=== PATIENT | male | born 1930 | race Caucasian/White ===

== ENCOUNTER → 2018-10-24 | Outpatient (REF) ==
[2018-10-24 12:35] LABS: CALCIUM LEVEL 7.7 MG/DL (8.8-10.2); CREATININE FOR GFR 1.83 MG/DL (0.70-1.30); GLOMERULAR FILTRATION RATE 37.6 (>35); POTASSIUM SERUM 3.9 MEQ/L (3.5-5.1)
--- NOTE | 2018-10-24 15:06 | REP ---
PORTABLE CHEST: AP portable view of the chest was performed. I have no prior study for comparison. Heart appears enlarged. There is vascular congestion. There are increased interstitial markings bilaterally. Compatible with interstitial edema. Multiple sternal wires and mediastinal clips are present. IMPRESSION: Findings compatible with cardiomegaly, vascular congestion and interstitial pulmonary edema. Electronically Signed by Corey Alvarez MD 10/24/2018 07:40 P
== END ==
LOC: SKLAB7 10:45
PROVIDERS: ATTEND Internal Medicine
DX: I50.9 Heart failure, unspecified (principal); J18.9 Pneumonia, unspecified organism

== ENCOUNTER → 2018-10-28 | Outpatient (REF) ==
[~2018-10-28] MED LIST: ACET500T15 PO; APAP325T4 PO; ASPI81TA85 PO; AYR0.65S NARES; BASA100I SC; BISA10SU4 PR; CILO100T PO; ELIQ2.5T PO; ENEMENE4 PR; FLOM0.4C39 PO; FURO80TA2 PO; HUMA100I3 SC; LEVO88TA3 PO; LOPR1TAB6 PO; MILK120011 PO; OCUVTAB4 PO; PANT40TA3 PO; POTA1TAB14 PO; SIMV20TA2 PO; SPIR-10 PO; VITA200015 PO; VITMTA PO
[2018-10-28 08:12] LABS: CALCIUM LEVEL 7.8 MG/DL (8.8-10.2); CHOLESTEROL RISK RATIO 3.21 (<5); CREATININE FOR GFR 1.27 MG/DL (0.70-1.30); GLOMERULAR FILTRATION RATE 57.2 (>35); POTASSIUM SERUM 2.8 MEQ/L (3.5-5.1)
== END ==
LOC: SKLAB7 07:00
PROVIDERS: ATTEND Internal Medicine
DX: I50.9 Heart failure, unspecified (principal); E11.9 Type 2 diabetes mellitus without complications; I11.0 Hypertensive heart disease with heart failure; N40.1 Benign prostatic hyperplasia with lower urinary tract symptoms; Z79.899 Other long term (current) drug therapy

== ENCOUNTER → 2018-10-29 | Outpatient (REF) ==
[2018-10-29 08:23] LABS: CALCIUM LEVEL 7.9 MG/DL (8.8-10.2); CREATININE FOR GFR 1.6 MG/DL (0.70-1.30); GLOMERULAR FILTRATION RATE 43.8 (>35); POTASSIUM SERUM 3.2 MEQ/L (3.5-5.1)
== END ==
LOC: SKLAB7 07:00
PROVIDERS: ATTEND Internal Medicine
DX: I50.9 Heart failure, unspecified (principal)

== ENCOUNTER → 2018-10-31 | Outpatient (REF) ==
[2018-10-31 12:48] LABS: CALCIUM LEVEL 8.1 MG/DL (8.8-10.2); CREATININE FOR GFR 1.62 MG/DL (0.70-1.30); GLOMERULAR FILTRATION RATE 43.2 (>35); POTASSIUM SERUM 3.5 MEQ/L (3.5-5.1)
== END ==
LOC: SKLAB7 07:00
PROVIDERS: ATTEND Internal Medicine
DX: I50.9 Heart failure, unspecified (principal)

== ENCOUNTER → 2018-11-04 | Outpatient (REF) ==
[2018-11-04 07:41] LABS: HEMATOCRIT 31.2 % (42.0-52.0); HEMOGLOBIN 10.2 g/dl (13.5-17.5); MEAN CORPUSCULAR HEMOGLOBIN 30.3 pg (27.0-33.0); MEAN CORPUSCULAR HGB CONC 32.7 g/dl (32.0-36.5); MEAN CORPUSCULAR VOLUME 92.6 fl (80.0-96.0); PLATELET COUNT, AUTOMATED 320 10^3/uL (150-450); RED BLOOD COUNT 3.37 10^6/uL (4.30-6.10); WHITE BLOOD COUNT 10.5 10^3/uL (4.0-10.0)
[2018-11-04 08:09] LABS: CALCIUM LEVEL 8.2 MG/DL (8.8-10.2); CREATININE FOR GFR 1.52 MG/DL (0.70-1.30); GLOMERULAR FILTRATION RATE 46.5 (>35); POTASSIUM SERUM 3.4 MEQ/L (3.5-5.1)
[2018-11-04 08:12] LABS: HEMOGLOBIN A1c 10.3 %
== END ==
LOC: SKLAB7 07:00
PROVIDERS: ATTEND Internal Medicine
DX: I50.9 Heart failure, unspecified (principal); E11.9 Type 2 diabetes mellitus without complications; Z79.899 Other long term (current) drug therapy

== ENCOUNTER → 2018-11-11 | Outpatient (REF) ==
[2018-11-11 07:45] LABS: CALCIUM LEVEL 8.5 MG/DL (8.8-10.2); CREATININE FOR GFR 1.57 MG/DL (0.70-1.30); GLOMERULAR FILTRATION RATE 44.8 (>35); POTASSIUM SERUM 3.6 MEQ/L (3.5-5.1)
== END ==
LOC: SKLAB7 07:00
PROVIDERS: ATTEND Internal Medicine
DX: I50.9 Heart failure, unspecified (principal)

== ENCOUNTER → 2018-11-17 | Outpatient (CLI) | payer MEDICARE ==
--- NOTE | 2018-11-17 12:11 | NUR ---
Pt seen for Modified Barium Swallow Study d/t hx significant for oropharyngeal phase dysphagia following respiratory failure and pneumonia. Pt. was presented with thin liquids (via straw at 3 consecutive swallows, puree, canned peaches with thin liquid base, barium filled cookie and barium tablet. Premature spillage over the tongue base to the valleculae noted with trials following thin liquid but w/o aspiration/penetration. Pharyngeal/valleculae residue was minimal/insignificant. Barium tablet provided whole with thin liquid wash (via straw) and tolerated well. Recommendations: Mechanical Soft solids and regular thin liquids. Line of sight supervision for initial upgrade. Meds whole with thin liquid wash. Straw use is acceptable. Upright for all meals/snacks/meds Addendum: 11/17/18 at 1213 by SAMARIA DSOUZA [facility] Amended: Links added.
--- NOTE | 2018-11-18 10:08 | REP ---
COOKIE SWALLOW The procedure was performed under the direct supervision of Dr. alvarez. The procedure was performed with Mireille Easley from speech pathology present. 5 ml aliquots of pudding, solid, thin, fruit and a barium pill were administered. There is no evidence of penetration or aspiration. The detailed report of this examination will be provided by speech pathology. 2.7 minutes of fluoroscopy time was utilized for this procedure. Reviewed by EDYTA Lopez 11/17/2018 04:05 P Electronically Signed by Corey Alvarez MD 11/18/2018 09:59 A
== END ==
LOC: M ST 11:07
PROVIDERS: ATTEND Nurse Practitioner Family
DX: R13.10 Dysphagia, unspecified (principal)

== ENCOUNTER → 2018-11-18 | Outpatient (REF) ==
[2018-11-18 08:22] LABS: CALCIUM LEVEL 8.6 MG/DL (8.8-10.2); CREATININE FOR GFR 1.56 MG/DL (0.70-1.30); GLOMERULAR FILTRATION RATE 45.1 (>35); POTASSIUM SERUM 3.2 MEQ/L (3.5-5.1)
== END ==
LOC: SKLAB7 07:00
PROVIDERS: ATTEND Internal Medicine
DX: I50.9 Heart failure, unspecified (principal)

== ENCOUNTER → 2018-11-20 | Outpatient (REF) ==
[2018-11-20 13:39] LABS: HEMATOCRIT 35.3 % (42.0-52.0); HEMOGLOBIN 11.5 g/dl (13.5-17.5); MEAN CORPUSCULAR HEMOGLOBIN 30.2 pg (27.0-33.0); MEAN CORPUSCULAR HGB CONC 32.6 g/dl (32.0-36.5); MEAN CORPUSCULAR VOLUME 92.7 fl (80.0-96.0); PLATELET COUNT, AUTOMATED 288 10^3/uL (150-450); RED BLOOD COUNT 3.81 10^6/uL (4.30-6.10); WHITE BLOOD COUNT 15.3 10^3/uL (4.0-10.0)
[2018-11-20 15:21] LABS: CALCIUM LEVEL 8.2 MG/DL (8.8-10.2); CREATININE FOR GFR 1.71 MG/DL (0.70-1.30); GLOMERULAR FILTRATION RATE 40.6 (>35)
--- NOTE | 2018-11-20 20:33 | REP ---
Portable chest x-ray: Semi-erect AP view. History: Leukocytosis. Comparison study: October 24, 2018. Findings: Patient is status post prior median sternotomy. A loop recorder is again seen projecting over the left chest. Diffuse interstitial fibrosis pattern is noted moderate to advanced. No acute superimposed infiltrate is seen. The heart is mildly prominent unchanged. Pleural angles are sharp. Impression: Diffuse interstitial fibrosis pattern. Prior sternotomy. Mildly prominent heart. No acute changes. Electronically Signed by Alec Pagan MD 11/21/2018 09:53 A
--- NOTE | 2018-11-21 07:21 | ECGEPIP ---
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
== END ==
LOC: SKLAB7 11:20
PROVIDERS: ATTEND Internal Medicine
DX: I50.9 Heart failure, unspecified (principal)

== ENCOUNTER 2018-11-21 13:29 | Emergency (ER) | payer MEDICARE ==
[~2018-11-21] VITALS: Ht 175.3 cm; Wt 77.0 kg
[2018-11-21] MEDS ORDERED: SIMV20TA2 PO (14:57)
[2018-11-21] MEDS ORDERED: AYR0.65S NARES (14:57)
[2018-11-21] MEDS ORDERED: FLOM0.4C39 PO (14:57)
[2018-11-21] MEDS ORDERED: ACET500T15 PO (14:57)
[2018-11-21] MEDS ORDERED: APAP325T4 PO (14:57)
[2018-11-21] MEDS ORDERED: PANT40TA3 PO (14:57)
[2018-11-21] MEDS ORDERED: MILK120011 PO (14:57)
[2018-11-21] MEDS ORDERED: HUMA100I3 SC ×4 (14:57→15:06)
[2018-11-21] MEDS ORDERED: SPIR-10 PO (14:57)
[2018-11-21] MEDS ORDERED: LEVO88TA3 PO (14:57)
[2018-11-21] MEDS ORDERED: LOPR1TAB6 PO (14:57)
[2018-11-21] MEDS ORDERED: FURO80TA2 PO (14:57)
[2018-11-21] MEDS ORDERED: CILO100T PO (14:57)
[2018-11-21] MEDS ORDERED: ENEMENE4 PR (14:57)
[2018-11-21] MEDS ORDERED: BASA100I SC (14:57)
[2018-11-21] MEDS ORDERED: VITA200015 PO (14:57)
[2018-11-21] MEDS ORDERED: ELIQ2.5T PO (14:57)
[2018-11-21] MEDS ORDERED: OCUVTAB4 PO (14:57)
[2018-11-21] MEDS ORDERED: VITMTA PO (14:57)
[2018-11-21] MEDS ORDERED: POTA1TAB14 PO (14:57)
[2018-11-21] MEDS ORDERED: ASPI81TA85 PO (14:57)
[2018-11-21] MEDS ORDERED: BISA10SU4 PR (14:57)
--- NOTE | 2018-11-21 15:11 | REP ---
CT CHEST WITHOUT IV CONTRAST: CT chest performed without IV contrast. Sagittal and coronal reconstruction images are performed. There is moderate to severe interstitial fibrosis predominantly in the lung bases bilaterally. There is associated moderate to severe bronchiectasis in the lower lobes and to a lesser extent in the upper lobes. Extensive honeycombing is seen in the lung bases. No consolidating infiltrate is seen bilaterally. There is mild subcarinal adenopathy 1.2 cm in short axis. Other subcentimeter lymph nodes are scattered throughout the mediastinum. No axillary adenopathy is seen. There is mild atherosclerotic calcification of the thoracic aorta without aneurysm. Heart is not significantly enlarged. There is a small hiatal hernia. The visualized upper abdominal structures are grossly unremarkable. IMPRESSION: Moderate to severe fibrosis and bronchiectasis with some degree of honeycombing in the lung bases. No consolidation. Mild subcarinal adenopathy 1.2 cm in short axis. Small hiatal hernia. Electronically Signed by Corey Alvarez MD 11/24/2018 11:48 A
[2018-11-21 15:20] LABS: BASO # 0.1 10^3/uL (0.0-0.2); BASO % 0.5 % (0.0-1.0); EOS # 0.3 10^3/uL (0.0-0.50); HEMOGLOBIN 12.2 g/dl (13.5-17.5); LYMPH # 4.3 10^3/uL (1.5-4.5); LYMPH % 32.5 % (24.0-44.0); MEAN CORPUSCULAR HEMOGLOBIN 31.1 pg (27.0-33.0); MEAN CORPUSCULAR VOLUME 94.4 fl (80.0-96.0); MONO # 1.2 10^3/uL (0.0-0.8); NEUTROPHILS # 7.3 10^3/uL (1.8-7.7); NEUTROPHILS % 55.2 % (36.0-66.0); PLATELET COUNT, AUTOMATED 257 10^3/uL (150-450); RED BLOOD COUNT 3.92 10^6/uL (4.30-6.10); WHITE BLOOD COUNT 13.3 10^3/uL (4.0-10.0)
[2018-11-21 15:31] LABS: INR 1.19; PARTIAL THROMBOPLASTIN TIME 35.6 SECONDS (25.4-37.6); PROTHROMBIN TIME 15.3 SECONDS (12.1-14.4)
[2018-11-21 15:47] LABS: ALBUMIN 2.3 GM/DL (3.2-5.2); ALT/SGPT 35 U/L (12-78); BILIRUBIN,DIRECT 0.1 MG/DL (0.0-0.2); BILIRUBIN,TOTAL 0.4 MG/DL (0.2-1.0); BLOOD UREA NITROGEN 37 MG/DL (7-18); CALCIUM LEVEL 8.1 MG/DL (8.8-10.2); CARBON DIOXIDE LEVEL 28 MEQ/L (21-32); CHLORIDE LEVEL 100 MEQ/L (98-107); CPK CREATINE PHOSPHOKINASE 31 U/L (39-308); CREATININE FOR GFR 1.87 MG/DL (0.70-1.30); GLOMERULAR FILTRATION RATE 36.6 (>35); GLUCOSE, FASTING 207 MG/DL (70-100); LIPASE 194 U/L (73-393); MB/CK RELATIVE INDEX 7.42 (< OR =4); POTASSIUM SERUM 3.9 MEQ/L (3.5-5.1); SODIUM LEVEL 136 MEQ/L (136-145); TROPONIN I < 0.02 NG/ML (< 0.10)
[2018-11-21 18:44] VITALS: BP 128/74
--- NOTE | 2018-11-21 18:53 | ECGEPIP ---
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
--- NOTE | 2018-11-24 13:56 | ED PDOC ---
Post-Departure Follow-Up dr samuels faxed formal report of ct chest for fu Maryam Mahoney MD Nov 24, 2018 13:56
== END 2018-11-21 19:28 | disposition home or self-care (01) ==
LOC: M ED 13:29
DX: D72.829 Elevated white blood cell count, unspecified (principal); R91.8 Other nonspecific abnormal finding of lung field; K44.9 Diaphragmatic hernia without obstruction or gangrene; I51.7 Cardiomegaly; I48.91 Unspecified atrial fibrillation; E11.42 Type 2 diabetes mellitus with diabetic polyneuropathy; I50.9 Heart failure, unspecified; E03.9 Hypothyroidism, unspecified; N18.3 Chronic kidney disease, stage 3 (moderate); J84.112 Idiopathic pulmonary fibrosis; Z86.14 Personal history of Methicillin resistant Staphylococcus aureus infection; Z87.891 Personal history of nicotine dependence; Z79.01 Long term (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 of anticoagulants; Z79.82 Long term (current) use of aspirin; Z79.4 Long term (current) use of insulin; Z79.899 Other long term (current) drug therapy; Z88.8 Allergy status to other drugs, medicaments and biological substances

== ENCOUNTER → 2018-11-21 | Outpatient (REF) ==
[2018-11-21 07:42] LABS: HEMATOCRIT 38.6 % (42.0-52.0); HEMOGLOBIN 12.4 g/dl (13.5-17.5); MEAN CORPUSCULAR HEMOGLOBIN 30.2 pg (27.0-33.0); MEAN CORPUSCULAR HGB CONC 32.1 g/dl (32.0-36.5); MEAN CORPUSCULAR VOLUME 94.1 fl (80.0-96.0); PLATELET COUNT, AUTOMATED 312 10^3/uL (150-450); WHITE BLOOD COUNT 19.7 10^3/uL (4.0-10.0)
== END ==
LOC: SKLAB7 14:12
PROVIDERS: ATTEND Internal Medicine
DX: D72.829 Elevated white blood cell count, unspecified (principal)

== ENCOUNTER → 2018-11-27 | Outpatient (REF) ==
[2018-11-27 08:43] LABS: CREATININE FOR GFR 1.47 MG/DL (0.70-1.30); GLOMERULAR FILTRATION RATE 48.4 (>35); POTASSIUM SERUM 3.7 MEQ/L (3.5-5.1)
== END ==
LOC: SKLAB7 14:19
PROVIDERS: ATTEND Internal Medicine
DX: I50.9 Heart failure, unspecified (principal)

== ENCOUNTER → 2018-12-02 | Outpatient (REF) ==
[2018-12-02 08:57] LABS: FREE T4 1.8 NG/DL (0.76-1.46); THYROID STIMULATING HORMONE 1.28 uIU/ML (0.358-3.740)
== END ==
LOC: SKLAB7 07:33
PROVIDERS: ATTEND Internal Medicine
DX: E03.9 Hypothyroidism, unspecified (principal)

== ENCOUNTER → 2018-12-04 | Outpatient (REF) ==
[2018-12-04 08:48] LABS: CALCIUM LEVEL 9.3 MG/DL (8.8-10.2); CREATININE FOR GFR 1.62 MG/DL (0.70-1.30); GLOMERULAR FILTRATION RATE 43.2 (>35); POTASSIUM SERUM 3.6 MEQ/L (3.5-5.1)
== END ==
LOC: SKLAB7 08:00
PROVIDERS: ATTEND Internal Medicine
DX: I50.9 Heart failure, unspecified (principal)

== ENCOUNTER → 2019-03-25 | Outpatient (REF) | payer MEDICARE ==
[2019-03-25 13:46] LABS: HEPATITIS C VIRUS ABY INDEX 0.1 INDEX (<0.8); HIV 1&2 SCREEN CENTAUR NEGATIVE (NEGATIVE)
== END ==
LOC: M LAB REF 12:35
PROVIDERS: ATTEND Internal Medicine
DX: Z77.21 Contact with and (suspected) exposure to potentially hazardous body fluids (principal); W46.0XXA Contact with hypodermic needle, initial encounter

== ENCOUNTER → 2019-05-04 | Outpatient (REF) | payer MEDICARE | LOC: M LAB REF 14:19 | PROVIDERS: ATTEND Internal Medicine | DX: R19.7 Diarrhea, unspecified (principal) ==

== ENCOUNTER → 2020-06-28 | Outpatient (REF) | payer MEDICARE ==
[~2020-06-28] MED LIST changes: -ASPI81TA85 PO; +ASPI81TA86 PO; +PANT40TA29 PO; -PANT40TA3 PO; -SIMV20TA2 PO; +SIMV20TA22 PO
[2020-06-28 17:03] LABS: APPEARANCE, URINE CLEAR (CLEAR); BACTERIA, URINE AUTO NEGATIVE (NEGATIVE); BILIRUBIN, URINE AUTO NEGATIVE (NEGATIVE); BLOOD, URINE BLOOD NEGATIVE (NEGATIVE); COLOR, URINE YELLOW (YELLOW); GLUCOSE, URINE (UA) AUTO NEGATIVE (NEGATIVE); KETONE, URINE AUTO NEGATIVE (NEGATIVE); LEUKOCYTE ESTERASE, URINE AUTO NEGATIVE (NEGATIVE); MUCUS, URINE SMALL (NEGATIVE); NITRITE, URINE AUTO NEGATIVE (NEGATIVE); PROTEIN, URINE AUTO NEGATIVE (NEGATIVE); RBC, URINE AUTO 0 /HPF (0-3); SPECIFIC GRAVITY URINE AUTO 1.013 (1.002-1.035); SQUAMOUS EPITHELIAL CELL UR AU 1 /HPF (0-6); UROBILINOGEN, URINE AUTO 0.2 mg/dL (0.0-2.0); WBC, URINE AUTO 0 /HPF (0-3)
== END ==
LOC: M SMT 16:48
PROVIDERS: ATTEND Urology
DX: N40.1 Benign prostatic hyperplasia with lower urinary tract symptoms (principal)
CPT/HCPCS: 51798; 81001; 81002; G0463

== ENCOUNTER → 2020-07-07 | Outpatient (REF) | payer MEDICARE | LOC: M LAB REF 16:21 | PROVIDERS: ATTEND Internal Medicine | DX: I13.0 Hypertensive heart and chronic kidney disease with heart failure and stage 1 through stage 4 chronic kidney disease, or unspecified chronic kidney disease (principal); I50.9 Heart failure, unspecified; N18.9 Chronic kidney disease, unspecified ==

== ENCOUNTER → 2020-10-07 | Outpatient (REF) | payer MEDICARE ==
[~2020-10-07] MED LIST changes: +ACET325C5 PO; +CEPH500C PO; +FINA5TAB2 PO; +INSUHUMDS SC; +METO1TAB87 PO; +REFR0.1D OU; +SYNT75TA PO; +TORS20TA2 PO; +VITA200038 PO
[2020-10-07 19:06] LABS: ALBUMIN 3.7 GM/DL (3.2-5.2); BILIRUBIN,TOTAL 0.3 MG/DL (0.2-1.0); CALCIUM LEVEL 9.8 MG/DL (8.8-10.2); CREATININE FOR GFR 2.15 MG/DL (0.70-1.30); POTASSIUM SERUM 4.5 MEQ/L (3.5-5.1); THYROID STIMULATING HORMONE 4.99 uIU/ML (0.358-3.740); TOTAL PROTEIN 7.8 GM/DL (6.4-8.2)
== END ==
LOC: M LAB REF 16:31
PROVIDERS: ATTEND Internal Medicine
DX: I13.0 Hypertensive heart and chronic kidney disease with heart failure and stage 1 through stage 4 chronic kidney disease, or unspecified chronic kidney disease (principal); N25.81 Secondary hyperparathyroidism of renal origin; I50.9 Heart failure, unspecified; N18.9 Chronic kidney disease, unspecified

== ENCOUNTER 2020-10-20 14:47 | Inpatient (IN) | payer MEDICARE ==
[~2020-10-20] VITALS: Ht 175.3 cm; Wt 93.4 kg
[~2020-10-20 14:47] MED LIST changes: -ACET325C5 PO; -CEPH500C PO; -FINA5TAB2 PO; -INSUHUMDS SC; -METO1TAB87 PO; -REFR0.1D OU; -SYNT75TA PO; -TORS20TA2 PO; -VITA200038 PO
[2020-10-20] MEDS ORDERED: TORS20TA2 PO (16:05)
[2020-10-20] MEDS ORDERED: FINA5TAB2 PO (16:06)
[2020-10-20] MEDS ORDERED: ACETAMINOPHEN 500 MG TAB PO ONE (16:30)
--- NOTE | 2020-10-20 16:51 | REP ---
INDICATION: Left knee pain, red/hot swollen. COMPARISON: None. TECHNIQUE: Five views. FINDINGS: Five views of the left knee demonstrate prepatellar soft tissue swelling. Vascular calcifications noted. There is diffuse osteopenia. Mild chondrocalcinosis. No fracture is seen. No evidence of joint effusion.. . No opaque foreign body noted. IMPRESSION: Diffuse osteopenia and vascular calcification. Prepatellar soft tissue swelling. No acute bony abnormality.. <Electronically signed by Jorge Pagan > 10/20/20 [id number]
[2020-10-20 17:07] LABS: BASO % 0.2 % (0.0-1.0); EOS % 0.3 % (0.0-3.0); HEMATOCRIT 39.2 % (42.0-52.0); HEMOGLOBIN 12.9 g/dl (13.5-17.5); LYMPH % 23.9 % (24.0-44.0); MEAN CORPUSCULAR HEMOGLOBIN 31.7 pg (27.0-33.0); MEAN CORPUSCULAR HGB CONC 32.9 g/dl (32.0-36.5); MEAN CORPUSCULAR VOLUME 96.3 fl (80.0-96.0); MONO # 2.4 10^3/uL (0.0-0.8); MONO % 19.1 % (0.0-5.0); NEUTROPHILS % 56.1 % (36.0-66.0); PLATELET COUNT, AUTOMATED 146 10^3/uL (150-450); RED BLOOD COUNT 4.07 10^6/uL (4.30-6.10)
[2020-10-20 17:10] LABS: WHITE BLOOD COUNT 12.5 10^3/uL (4.0-10.0)
--- NOTE | 2020-10-20 17:17 | REPVR ---
PROCEDURE INFORMATION: Exam: US Duplex Left Lower Extremity Veins, Limited Exam date and time: 10/20/2020 4:32 PM Age: 89 years old Clinical indication: Pain; Leg, lower; Left; Additional info: R/O dvt lle TECHNIQUE: Imaging protocol: Real-time Duplex ultrasound of the Left Lower Extremity with 2-D qiu scale, color Doppler flow and spectral waveform analysis with image documentation. Limited exam focused on the left lower extremity veins. COMPARISON: No relevant prior studies available. FINDINGS: Left deep veins: Unremarkable. The common femoral, femoral, popliteal and posterior tibial veins are patent without thrombus. Normal compressibility, augmentation response and Doppler waveforms. Left superficial veins: Unremarkable. Saphenofemoral junction is patent without thrombus. Soft tissues: Unremarkable. IMPRESSION: No sonographic evidence of deep vein thrombosis. Electronically signed by: Philip Hackett On 10/20/2020 17:16:43 PM
[2020-10-20 17:30] LABS: C REACTIVE PROTEIN QUANTITATIV 6.43 MG/DL (0.00-0.30); CALCIUM LEVEL 9.5 MG/DL (8.8-10.2); CREATININE FOR GFR 2.57 MG/DL (0.70-1.30); GLOMERULAR FILTRATION RATE 25.3 (>35); POTASSIUM SERUM 4.4 MEQ/L (3.5-5.1)
[2020-10-20 18:25] LABS: ERYTHROCYTE SEDIMENTATION RATE 67 mm/hr (0-20)
[2020-10-20 19:33] LABS: RSV AMPLIFICATION NEGATIVE (NEGATIVE)
[2020-10-20 20:35] LABS: CRYSTALS, BODY FLUID NONE SEEN (NONE SEEN); SOURCE, BODY FLUID CRYSTALS LFT KNEE; SYNOVIAL FLUID COLOR PINK (YELLOW)
[2020-10-20 20:36] LABS: SOURCE, BODY FLUID LFT KNEE; SOURCE, BODY FLUID URIC ACID LFT KNEE
[2020-10-20] MEDS: HumaLOG INSULIN (NovoLOG) PER UNIT SC SCH (21:00)
[2020-10-20] MEDS ORDERED: VANCOMYCIN HCL 1,300 MG in IV FLUID PLACE HOLDER 1 EA IV SCH (21:15)
--- OUTSIDE RECORDS SUMMARY | 2020-10-20 21:47 | CCD | Continuity of Care Document ---
Author Author Daquan Miner MD Organization Unknown Address [address] [facility] [address] [place] [address] Phone [phone] Care Team Providers Care Elevator Constructor Hydraulic Name Role Phone Luis Enrique Miner JR, MD AUTM Unavailable Problems Description No Information Available Social History Type Date Description Comments Sex Unknown Tobacco Use Start: Unknown End: Unknown Does not smoke Allergies, Adverse Reactions, Alerts Active Allergies Reaction Severity Comments Date Gabapentin rash 12/18/2018 Medications Active Medications SIG Qnty Indications Ordering Provide r Date Metoprolol Tartrate 25mg Tablets 1 by mouth twice a day 180tabs Luis Enrique Miner MD 10/11/19 21 Novolog Flexpen 100U nit/ML Solution Pen-Inject Inject 6U AT Breakfast,8U AT Lunch,5U AT Supper Plus Sliding Scale 101-150 2U 151-200 4U,201-250 6U,251-300 8U Greater [id number] 15U 45ml Luis Enrique Miner MD 09/30/2020 BD Uf Mini Pen Needle [id number] Use Four Times A Day 120units uLis Enrique Miner MD 06/29/2020 Klor-Con M20 20Meq Tablets ER Take 1 Tablet Daily 90tabs Luis Enrique Miner MD 03/28/2020 Cilostazol 100mg Tablets Take 1 Tablet Twice A Day 180tabs Luis Enrique Miner MD 03/28/2020 BD Ultra Fine [place] Short 31G Misc use four times a day 120units Luis Enrique Miner MD 08/24 Torsemide 20mg Tablets Take 2 Tablets Daily 180tabs Luis Enrique Miner MD 07/15/2019 Freestyle Mai 14 Day/[place]/Flash [place]alka toring System Device use as directed e11.65;z79.4 1units Luis Enrique Miner MD 12/18/2018 Freestyle Mai 14 Day/Sensor/Flash Malka toring System Misc use as directed e11.65 1units Luis Enrique dixon MD 12/18/2018 Accu-Chek Grace Plus Strips test qid E11.65 400units Luis Enrique Miner MD 12/18/2018 Levothyroxine Sodium 75mcg Tablets take 1 tablet daily 90tabs Luis Enrique Miner MD 12/08/2018 Vitamin D3 2000Unit Capsules 1 by mouth every day Luis Enrique Miner MD 12/08/2018 Simvastatin 20mg Tablets take one tablet by mouth at bedtime 90tabs Luis Enrique Mienr MD [address] 1 by mouth every morning 90tabs Luis Enrique Miner MD 12/08/2018 Tamsulosin HCL 0.4mg Capsules 2 daily 1/2 hour after same meal 90caps Luis Enrique Miner MD 12/08 Preservision Areds Tablets Take 2 Tablets Daily 180tabs Keshawn Ruiz M.D. 12/08/2018 Basaglar Kwikpen 100 Unit/ML Solution Pen-Inject Inject 40 Units Daily In The Evening 45units Sandy Miner MD 12/08/2018 Pletal 100mg Tablets 1 by mouth twice a day 180tabs Luis Enrique Miner MD 12/08/2018 Eliquis 2.5mg Tablets 1 by mouth twice a day Luis Enrique Miner MD 12/08/2018 Multi Vitamin Daily Tablets 1 by mouth every day Luis Enrique Miner MD 12/06/2018 Spironolactone 25mg Tablets Take 1/2 Tablet Daily 90tabs Luis Enrique Miner MD 12/06/2018 Demadex 20mg Tablets take one tablets by mouth every day 180tabs Luis Enrique Miner MD 12/06/2018 Finasteride 5mg Tablets 1 by mouth Every Morning Unknown Immunizations CPT Code Status Date Vaccine Lot # U-Flu Given 05/29/2020 Influenza,Unspecified U-PneuC Given 08/24/2015 Prevnar 13 U-Pneum Given 09/26/2014 Pneumococcal,Unspecified [id number] Given 11/22/2011 Zostavax Vital Signs Date Vital Result Comment 10/11/2020 2:27pm BP Systolic 100 mmHg BP Diastolic 62 mmHg Heart Rate 86 /min Weight 197.00 lb 07/11/2020 1:49pm BP Systolic 112 mmHg BP Diastolic 60 mmHg Height 69 inches 5'9" Weight 194.25 lb BMI (Body Mass Index) 28.7 kg/m2 Results Test Acquired Date Facility Test Result H/L Range Note Comprehensive Metabolic Profil 10/07/2020 [facility] [address] [place], [place] [id number] [phone] Glucose, Fasting 97 mg/dL Normal 70-100 Blood Urea Nitrogen 66 mg/dL High 7-18 Creatinine For GFR 2.15 mg/dL High 0.70-1.30 Glomerular Filtration Rate 31.0 Low >35 1 Sodium Level 141 mEq/L Normal 136-145 Potassium Serum 4.5 mEq/L Normal 3.5-5.1 Chloride Level 105 mEq/L Normal 98-107 Carbon Dioxide Level 26 mEq/L Normal 21-32 Anion Gap 10 mEq/L Normal 8-16 Calcium Level 9.8 mg/dL Normal 8.8-10.2 Ast/Sgot 33 U/L Normal 7-37 Alt/SGPT 51 U/L Normal 12-78 Alkaline Phosphatase 151 U/L High 45-117 Bilirubin,Total 0.3 mg/dL Normal 0.2-1.0 Total Protein 7.8 GM/DL Normal 6.4-8.2 Albumin 3.7 GM/DL Normal 3.2-5.2 Albumin/Globulin Ratio 0.9 Normal Laboratory test finding 10/07/2020 [facility] [address] [place] [address] [phone] Thyroid Stimulating Hormone 4.990 uIU/ML High 0. 358-3.740 Complete Blood Count 10/07/2020 [facility] Plate Glass Polisher: [place] [address] [phone] WBC 9.0 x10*3/UL 4.1 - 10.9 RBC 4.16 x10*6/UL Low 4.20 - 6.30 Hemoglobin 13.3 g/dL 12.0 - 18.0 Hematocrit 38.1 % 37.0 - 51.0 MCV 91.6 fL 80.0 - 97.0 MCH 32.0 pg 26.0 - 32.0 MCHC 34.9 g/dL 31.0 - 38.0 RDW 13.7 % 11.6 - 13.7 PLT 134 x10*3/UL Low 140 - 440 MPV 9.9 FL 7.8 - 11.0 Lymph % 32.3 % 10.0 - 58.5 Mid % 7.5 % 1.7 - 9.3 Neut % 60.2 % 37.0 - 92.0 Lymph # 2.9 x10*3/UL 0.6 - 4.1 Mid # 0.7 x10*3/UL High 0.1 - 0.6 Neut # 5.4 x10*3/UL 2.0 - 7.8 A1c 10/07/2020 [facility] Plate Glass Polisher: [place] [address] [phone] Hba1c 7.8 % High <5.7 2 Est Avg Glucose 177 mg/dL High 60 - 110 Laboratory test finding 07/07/2020 [facility] [address] [place] [address] [phone] PTH Intact 74.9 pg/mL Normal 18.5-88.0 Complete Blood Count 07/07/2020 [facility] Plate Glass Polisher: [place] [address] [phone] WBC 7.9 x10*3/UL 4.1 - 10.9 RBC 4.17 x10*6/UL Low 4.20 - 6.30 Hemoglobin 13.4 g/dL 12.0 - 18.0 Hematocrit 38.6 % 37.0 - 51.0 MCV 92.5 fL 80.0 - 97.0 MCH 32.1 pg High 26.0 - 32.0 MCHC 34.7 g/dL 31.0 - 38.0 RDW 13.8 % High 11.6 - 13.7 PLT 145 x10*3/UL 140 - 440 MPV 9.6 FL 7.8 - 11.0 Lymph % 34.5 % 10.0 - 58.5 Mid % 7.2 % 1.7 - 9.3 Neut % 58.3 % 37.0 - 92.0 Lymph # 2.7 x10*3/UL 0.6 - 4.1 Mid # 0.6 x10*3/UL 0.1 - 0.6 Neut # 4.6 x10*3/UL 2.0 - 7.8 A1c 07/07/2020 [facility] Plate Glass Polisher: [place] [address] [phone] Hba1c 7.9 % High <5.7 3 Est Avg Glucose 180 mg/dL High 60 - 110 Comprehensive Chem Profile 07/07/2020 [facility] Plate Glass Polisher: [place] [address] [phone] Glucose 178 mg/dL High 74 - 99 4 BUN 51 mg/dL High 7 - 18 5 Creatinine 2.0 mg/dL High 0.6 - 1.3 Sodium 142 mEq/L 136 - 145 Potassium 4.1 mEq/L 3.5 - 5.1 Chloride 105 mEq/L 98 - 107 Carbon Dioxide 31 mEq/L 21 - 32 Calcium 9.5 mg/dL 8.5 - 10.1 Alk. Phosphatase 117 mg/dL High 46 - 116 Total Bilirubin 0.4 mg/dL 0.2 - 1.0 Ast (Sgot) 29 U/L 15 - 37 Alt (SGPT) 41 U/L 12 - 78 Albumin 3.6 g/dL 3.4 - 5.0 Total Protein 7.3 g/dL 6.4 - 8.2 A/G Ratio 0.97 CALC Low 1.00 - 1.90 GFR 32 mL/min Low >60 GFR 38 mL/min Low >60 6 1 Units are mL/min/1.73 m2 Chronic Kidney Disease Staging per NKF: Stage I & II GFR >=60 Normal to Mildly Decreased Stage III GFR 30-59 Moderately Decreased Stage IV GFR 15-29 Severely Decreased Stage V GFR <15 Very Little GFR Left ESRD GFR <15 on ADVERTISING SALES CONSULTANT 2 Lab Result Notes: Pre-Diabetes 5.7 - 6.4 % Diabetes = or > 6.5% 3 Lab Result Notes: Pre-Diabetes 5.7 - 6.4 % Diabetes = or > 6.5% 4 100-125 mg/dL PRE-DIABET ES/FASTING >126 mg/dL DIABETES/FASTING 5 NOTE: BUN,CREAT VERIFED 6 CHRONIC KIDNEY DISEASE STAGI NG PER NKF STAGE I & II GFR >= 60 NORMAL TO MILDLY DECREASED STAGE III GFR 30-59 MODERATELY DECREASED STAGE IV GFR 15-29 SEVERELY DECREASED STAGE V GFR <15 VERY LITTLE GFR LEFT ESRD GFR <15 ON ADVERTISING SALES CONSULTANT Procedures Date Code Description Status 2020 [id number] Diabetic Foot Exam Completed 03/22/2020 [id number] Diabetic Foot Exam Completed 03/03/2020 [id number] Diabetic Retinal Eye Exam [facility] 07/02/2019 [id number] Diabetic Retinal Eye Exam Comple nayely 03/26/2019 [id number] Diabetic Retinal Eye Exam Comple 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 E11.649 Type 2 diabetes mellitus wit h hypoglycemia without coma Z79.4 skilled nursing (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 of i nsulin I48.0 Paroxysmal atrial fibrillati on Z79.01 skilled nursing (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 of a nticoagulants I73.9 Peripheral vascular disease, unspecified J84.112 Idiopathic pulmonary fibrosi s R26.89 Other abnormalities of gait and mobility E03.9 Hypothyroidism, unspecified Office Visit 07/11/2020 2:15p [facility] Miner MD 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 I50.32 Chronic diastolic (congestiv e) heart failure N18.4 Chronic kidney disease, stag e 4 (severe) 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 Z79.4 skilled nursing (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 of i nsulin I48.0 Paroxysmal atrial fibrillati on Z79.01 long term (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 of a nticoagulants I73.9 Peripheral vascular disease, unspecified J84.112 Idiopathic pulmonary fibrosi s R26.89 Other abnormalities of gait and mobility Z13.89 Encounter for screening for other disorder Assessments Date Code Description Provider 10/11/2020 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 kidney disease, or unspecified chronic kidney disease Luis Enrique Miner MD 10/11/2020 I50.32 Chronic diastolic (congestive) h eart failure Luis Enrique Miner MD 10/11/2020 N18.32 Chronic kidney disease, stage 3b Luis Enrique Miner MD 10/11/2020 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 Luis Enrique Miner MD 10/11/2020 E11.649 Type 2 diabetes mellitus with hy poglycemia without coma Luis Enrique Miner MD 10/11/2020 Z79.4 long term (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 of insul in Luis Enrique Miner MD 10/11/2020 I48.0 Paroxysmal atrial fibrillation C ellen Miner MD 10/11/2020 Z79.01 skilled nursing (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 of antic oagulants Luis Enrique Miner MD 10/11/2020 I73.9 Peripheral vascular disease, uns pecified Luis Enrique Miner MD 10/11/2020 J84.112 Idiopathic pulmonary fibrosis Co flavio Miner MD 10/11/2020 R26.89 Other abnormalities of gait and mobility Luis Enrique Miner MD 10/11/2020 E03.9 Hypothyroidism, unspecified Sandy antony Miner MD 10/07/2020 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 kidney disease, or unspecified chronic kidney disease Luis Enrique Miner MD 10/07/2020 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 kidney disease, or unspecified chronic kidney disease Lab Schedule 10/07/2020 I50.32 Chronic diastolic (congestive) h eart failure Luis Enrique Miner MD 10/07/2020 I50.32 Chronic diastolic (congestive) h eart failure Lab Schedule 10/07/2020 N18.4 Chronic kidney disease, stage 4 (severe) Luis Enrique Miner MD 10/07/2020 N18.4 Chronic kidney disease, stage 4 (severe) Lab Schedule 10/07/2020 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 Luis Enrique Miner MD 10/07/2020 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 Lab Schedule 10/07/2020 N25.81 Secondary hyperparathyroidism of renal origin Lab Schedule 07/11/2020 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 kidney disease, or unspecified chronic kidney disease Luis Enrique Miner MD 07/11/2020 I50.32 Chronic diastolic (congestive) h eart failure Luis Enrique Miner MD 07/11/2020 N18.4 Chronic kidney disease, stage 4 (severe) Luis Enrique Miner MD 07/11/2020 N25.81 Secondary hyperparathyroidism of renal origin Luis Enrique Miner MD 07/11/2020 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 Luis Enrique Miner MD 07/11/2020 Z79.4 long term (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 of insul in Luis Enrique Miner MD 07/11/2020 I48.0 Paroxysmal atrial fibrillation C ellen Miner MD 07/11/2020 Z79.01 long term (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 of antic oagulants Luis Enrique Miner MD 07/11/2020 I73.9 Peripheral vascular disease, uns pecified Luis Enrique Miner MD 07/11/2020 J84.112 Idiopathic pulmonary fibrosis Co llantony Miner MD 07/11/2020 R26.89 Other abnormalities of gait and mobility Luis Enrique Miner MD 07/11/2020 Z13.89 Encounter for screening for othe r disorder Luis Enrique Miner MD 07/07/2020 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 * 01/16/2021 3:00 pm - Luis Enrique Miner MD at [facility] 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 stage 1 through stage 4 chronic kidney disease, or unspecified chronic kidney disease * I50.32 Chronic diastolic (congestive) heart failure * N18.4 Chronic kidney disease, stage 4 (severe) * N25.81 Secondary hyperparathyroidism of renal origin * 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abetic polyneuropathy * Z79.4 skilled nursing (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 of insulin * I48.0 Paroxysmal atrial fibrillation * Z79.01 long term (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 of anticoagulants * I73.9 Peripheral vascular disease, unspecified * J84.112 Idiopathic pulmonary fibrosis * R26.89 Other abnormalities of gait and mobility * Z13.89 Encounter for screening for other disorder Functional Status Description No Information Available Mental Status Description No Information Available Referrals Description No Information Available
--- OUTSIDE RECORDS SUMMARY | 2020-10-20 21:48 | CCD | Continuity of Care Document ---
Author Author Lab Schedule, Daquan Stearns Organization Unknown Address [address] [address] Phone Unavailable Care Team Providers Care Abrasive Sawyer Name Role Phone Luis Enrique Miner JR, [...] 101-150 2U [phone] 4U,201-250 6U,251-300 8U Greater [id number] 15U 45ml Luis Enrique Miner MD 09/30/2020 BD Uf Mini Pen Needle [id number] Use Four Times A Day 120units Luis Enrique Miner MD 06/29/2020 Klor-Con M20 20Meq Tablets ER Take 1 Tablet Daily 90tabs Luis Enrique Miner MD 03/28/2020 Cilostazol 100mg Tablets Take 1 Tablet Twice A Day 180tabs Luis Enrique Miner MD 03/28/2020 BD Ultra Fine [place] Short 31G / 16 Misc use four times a day 120units Luis Enrique Miner MD 08/24 Torsemide 20mg Tablets Take 2 Tablets Daily 180tabs Luis Enrique Miner MD 07/15/2019 Freestyle Mai 14 Day/[place]/Flash Malka toring System Device use as directed [...] by mouth at bedtime 90tabs Luis Enrique Miner MD [address] 1 by mouth every morning 90tabs Luis Enrique Miner MD 12/08/2018 Tamsulosin HCL 0.4mg Capsules 2 daily 1/2 hour after same meal 90caps Luis Enrique Miner MD 12/08 Preservision Areds Tablets Take 2 Tablets Daily 180tabs Keshawn Ruiz M.D. 12/08/2018 Basaglar Kwikpen 100 Unit/ML Solution Pen-Inject Inject 40 Units Daily In The Evening 45units Sandy antony Miner MD 12/08/2018 Pletal 100mg Tablets 1 [...] 08/24/2015 Prevnar 13 U-Pneum Given 09/26/2014 Pneumococcal,Unspecified 59839 Given 11/22/2011 Zostavax Vital Signs Date Vital Result Comment 10/11/2020 2:27pm BP Systolic 100 mmHg BP Diastolic 62 mmHg Heart Rate 86 /min Weight 197.00 lb 07/11/2020 1:49pm BP Systolic 112 mmHg BP Diastolic 60 mmHg Height 69 inches 5'9" Weight 194.25 lb BMI (Body Mass Index) 28.7 kg/m2 Results Test Acquired Date Facility Test Result H/L Range Note Comprehensive Metabolic Profil 10/07/2020 [facility] [address] [place] [address] [phone] Glucose, Fasting 97 mg/dL Normal 70-100 Blood [...] Ratio 0.9 Normal Laboratory test finding 10/07/2020 [facility] [address] [place] [address] [phone] Thyroid Stimulating Hormone 4.990 uIU/ML High 0. 358-3.740 Complete Blood Count 10/07/2020 [facility] Code Official: [place] [address] [phone] WBC 9.0 x10*3/UL 4.1 - 10.9 RBC [...] 5.4 x10*3/UL 2.0 - 7.8 A1c 10/07/2020 [facility] Code Official: [place] [address] [phone] Hba1c 7.8 % High <5.7 2 Est Avg Glucose 177 mg/dL High 60 - 110 Laboratory test finding 07/07/2020 [facility] [address] [place] [address] [phone] PTH Intact 74.9 pg/mL Normal 18.5-88.0 Complete Blood Count 07/07/2020 [facility] Code Official: [place] [address] [phone] WBC 7.9 x10*3/UL 4.1 - 10.9 RBC [...] 4.6 x10*3/UL 2.0 - 7.8 A1c 07/07/2020 [facility] , Code Official: Dr Luis Enrique Miner [place], [place] [address] [phone] Hba1c 7.9 % High <5.7 3 Est Avg Glucose 180 mg/dL High 60 - 110 Comprehensive Chem Profile 07/07/2020 [facility], Code Official: [place] [address] [phone] Glucose 178 mg/dL High 74 - 99 [...] GFR Left ESRD GFR <15 on ADVERTISING SPECIALIST 2 Lab Result Notes: Pre-Diabetes 5.7 - [...] GFR LEFT ESRD GFR <15 ON [facility]VERTISING SPECIALIST Procedures Date Code Description Status 2020 780379073 Diabetic Foot Exam Completed 03/22/2020 741797576 Diabetic Foot Exam Completed 03/03/2020 301857500 Diabetic Retinal Eye Exam Comple nayely 07/02/2019 041111208 Diabetic Retinal Eye Exam Comple nayely 03/26/2019 370605742 Diabetic Retinal Eye Exam Comple [facility] Medical Devices Description No Information Available Encounters Type Date Location Provider Dx Diagnosis Office Visit 07/11/2020 2:15p [facility] 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, bilateral Luis Enrique Miner MD 10/11/2020 Z79.4 skilled nursing (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 of insul in Luis Enrique [...] polyneuropathy Luis Enrique Miner MD 07/11/2020 Z79.4 recreation activities coordinator (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 of insul in Luis Enrique Miner MD 07/11/2020 I48.0 Paroxysmal atrial fibrillation C ellen Miner MD 07/11/2020 Z79.01 skilled nursing (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 of antic oagulants Luis Enrique Miner MD 07/11/2020 I73.9 Peripheral vascular disease, uns pecified Luis Enrique Miner MD 07/11/2020 J84.112 Idiopathic pulmonary fibrosis Co llins Brianna Miner MD 07/11/2020 R26.89 Other abnormalities of [...] atrial fibrillation L ab Schedule 07/07/2020 Z79.01 recreation activities coordinator (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 of antic oagulants Luis Enrique Miner MD 07/07/2020 Z79.01 skilled nursing (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 of antic oagulants Lab Schedule Plan of Treatment Future Appointment(s):* 01/09/2021 10:10 am - Lab Schedule at [facility] * 01/16/2021 3:00 pm - Luis Enrique Miner MD at [facility] 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, or unspecified chronic kidney disease * I50.32 Chronic diastolic (congestive) heart failure * N18.32 Chronic kidney disease, stage 3b * 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abetic polyneuropathy * E11.649 Type 2 diabetes mellitus with hypoglycemia without coma * E11.3293 Type 2 diabetes mellitus with mild nonproliferative diabetic retinopathy without macular edema, bilateral * Z79.4 skilled nursing (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 of insulin * I48.0 Paroxysmal atrial fibrillation * Z79.01 skilled nursing (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 of anticoagulants * I73.9 Peripheral vascular disease, unspecified * J84.112 Idiopathic pulmonary fibrosis * R26.89 Other abnormalities of gait and mobility * E03.9 Hypothyroidism, unspecified * All * New Medication:* Metoprolol Tartrate 25 mg - 1 by mouth twice a day Functional Status Description No Information Available Mental Status Description No Information Available Referrals Description No Information Available
--- OUTSIDE RECORDS SUMMARY | 2020-10-20 21:48 | CCD | Continuity of Care Document ---
Author Author Daquan NAVARRO DPM Organization Unknown Address [address] [place] [address], [address] [place] [address] Phone [phone] Care Team Providers Care Torch Straightener Name Role Phone Luis Enrique Miner JR, M.D. AUTM [phone] Problems Active Problems Provider Date Amputated big toe Blair Navarro DPM Onset: 04/05/2020 Type 2 diabetes mellitus with diabetic polyneuropathy Blair Navarro DPM Onset: 04/05/2020 Onychomycosis Blair Navarro DPM Onset: 04/05/2020 Corns and callosities Blair Navarro DPM Onset: 04/05/2020 Resolved Problems Pain in limb Blair Navarro DPM Onset: 04/05/2020 Resolved: 07/13/2020 Type 2 diabetes mellitus with ulcer Blair Navarro DPM Ons et: 07/13/2020 Resolved: 08/13/2020 Pressure ulcer of other site, stage 1 Blair Navarro DPM O nset: 07/13/2020 Resolved: 08/13/2020 Social History Type Date Description Comments Sex Unknown ETOH Use Denies alcohol use Tobacco Use Start: Unknown Patient has never smoked Allergies, Adverse Reactions, Alerts Active Allergies Reaction Severity Comments Date Gabapentin rash 03/22/2020 Esbriet 03/22/2020 Medications Active Medications SIG Qnty Indications Ordering Provide r Date Metoprolol Tartrate 25mg Tablets Take One Tablet By Mouth Twice A Day Unknown Fluzone High-Dose 0.5ml Maegan Adm 0.5ML Im Utd Unknown Levofloxacin 250mg Tablets Katelynn Haynes MD Torsemide 10mg Tablets Isidra POTTER M.D.,[place] Potassium Chloride Tatiana ER 20Meq Tablets ER Isidra POTTER M.D.,[place] Cilostazol 100mg Tablets Isidra POTTER M.D.,[place] Basaglar Kwikpen 100 Unit/ML Solution Pen-Inject Isidra POTTER M.D.,[place] Eliquis 2.5mg Tablets [facility] Simvastatin 20mg Tablets Isidra POTTER M.D.,[place] Pantoprazole Sodium 40mg Tablets DR Kristel [facility] Torsemide 20mg Tablets Isidra POTTER M.D.,[place] Preservision Areds Tablets Joseph Blakely,Keshawn Synthroid 75mcg Tablets Isidra POTTER M.D.,[place] Spironolactone 25mg Tablets Isidra POTTER M.D.,[place] Tamsulosin HCL 0.4mg Capsules Unknown Refresh Plus 0.5% Solution Instill 1 Drop Into Both Eyes Every 2 Hours While Awake as Directed Unknown Metoprolol Tartrate 50mg Tablets Isidra POTTER M.D.,[place] BD Pen Needle/Mini/Ultra-Fine/31G X 5mm 31G X 5 mm Misc Unknown Immunizations Description No Information Available Vital Signs Date Vital Result Comment 03/22/2020 8:28am Height 69 inches 5'9" Weight 184.00 lb BP Systolic 100 mmHg BP Diastolic 64 mmHg Heart Rate 80 /min BMI (Body Mass Index) 27.2 kg/m2 Results Description No Information Available Procedures Date Code Description Status 08/02/2020 97871 Debridement 6-10 Nails Electric Completed 07/19/2020 29395 Debridement Of Wound 20 SQ CM Co mpleted 07/05/2020 95823 Debridement Of Wound 20 SQ CM Co mpleted 05/31/2020 25050 Debridement 6-10 Nails Electric Completed 03/22/2020 06239 Debridement 6-10 Nails Electric Completed 03/22/2020 70250 Paring/Cutting Benign Single Les n Completed Medical Devices Description No Information Available Encounters Type Date Location Provider Dx Diagnosis Office Visit 03/22/2020 3:00p [place] [facility] Blair Navarro DPM 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 M79.676 Pain in unspecified toe(s) 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 B35.1 Tinea unguium L84 Corns and callosities Assessments Date Code Description Provider 08/02/2020 B35.1 Tinea unguium Blair Navarro, REBECA 08/02/2020 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 Blair Navarro, REBECA 07/19/2020 E11.621 Type 2 diabetes mellitus with fo ot ulcer Blair Navarro, REBECA 07/19/2020 L89.891 Pressure ulcer of other site, st age 1 Blair Navarro DPM 07/05/2020 E11.621 Type 2 diabetes mellitus with fo ot ulcer Blair Navarro DPM 07/05/2020 L89.891 Pressure ulcer of other site, st age 1 Blair Navarro DPM 05/31/2020 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 Blair Navarro DPM 05/31/2020 B35.1 Tinea unguium Blair Navarro, REBECA 05/31/2020 M72.2 Plantar fascial fibromatosis And juju Navarro, REBECA 05/31/2020 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 Blair Navarro DPM 03/22/2020 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 Blair Navarro DPM 03/22/2020 M79.676 Pain in unspecified toe(s) Altaf Navarro DPM 03/22/2020 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 Blair Navarro DPM 03/22/2020 B35.1 Tinea unguium Blair Navarro, REBECA 03/22/2020 L84 Corns and callosities Blair Navarro DPM Plan of Treatment Future Appointment(s):* 10/06/2020 1:15 pm - Blair Navarro DPM at [facility] * 10/11/2020 2:30 pm - Blair Navarro DPM at [facility] Functional Status Description No Information Available Mental Status Description No Information Available Referrals Description No Information Available
--- OUTSIDE RECORDS SUMMARY | 2020-10-20 21:48 | CCD | Continuity of Care Document ---
Author Author Daquan Miner MD Organization Unknown Address [address] [facility] [address] [place] [address] Phone [phone] Care Team Providers Care Marketing Effectiveness Manager Name Role Phone Luis Enrique Miner JR, [...] 101-150 2U 151-200 4U,201-250 6U,251-300 8U Greater Enrw340 15U 45ml Luis Enrique Miner MD 09/30/2020 BD Uf Mini Pen Needle [id number] Use Four Times A Day 120units Luis Enrique Miner MD 06/29/2020 Klor-Con M20 20Meq Tablets ER Take 1 Tablet Daily 90tabs Luis Enrique Miner MD 03/28/2020 Cilostazol 100mg Tablets Take 1 Tablet Twice A Day 180tabs Luis Enrique Miner MD 03/28/2020 BD Ultra Fine [place] Short 31G Misc use four times a day 120units Luis Enrique Miner MD 08/24 Torsemide 20mg Tablets Take 2 Tablets Daily 180tabs Luis Enrique Miner MD 07/15/2019 Freestyle Mai 14 Day/[place]/Flash Malka toring System Device use as directed [...] 08/24/2015 Prevnar 13 U-Pneum Given 09/26/2014 Pneumococcal,Unspecified 02109 Given 11/22/2011 Zostavax Vital Signs Date Vital Result Comment 10/11/2020 2:27pm BP Systolic 100 mmHg BP Diastolic 62 mmHg Heart Rate 86 /min Weight 197.00 lb 07/11/2020 1:49pm BP Systolic 112 mmHg BP Diastolic 60 mmHg Height 69 inches 5'9" Weight 194.25 lb BMI (Body Mass Index) 28.7 kg/m2 Results Test Acquired Date Facility Test Result H/L Range Note Comprehensive Metabolic Profil 10/07/2020 [facility] [address] [place], [place] [address] [phone] Glucose, Fasting 97 mg/dL Normal 70-100 Blood [...] Normal Laboratory test finding 10/07/2020 [facility] [place] [address] [place] [address] [phone] Thyroid Stimulating Hormone 4.990 uIU/ML High 0. 358-3.740 Complete Blood Count 10/07/2020 [facility] Assembler Piano: [place] [address] [phone] WBC 9.0 x10*3/UL 4.1 - 10.9 RBC [...] 5.4 x10*3/UL 2.0 - 7.8 A1c 10/07/2020 [facility] Assembler Piano: [place] [address] [phone] Hba1c 7.8 % High <5.7 2 Est Avg Glucose 177 mg/dL High 60 - 110 Laboratory test finding 07/07/2020 [facility] [place] [address] [place] [address] [phone] PTH Intact 74.9 pg/mL Normal 18.5-88.0 Complete Blood Count 07/07/2020 [facility] Assembler Piano: [place] [address] [phone] WBC 7.9 x10*3/UL 4.1 - 10.9 RBC [...] 4.6 x10*3/UL 2.0 - 7.8 A1c 07/07/2020 [facility] Assembler Piano: [place] [address] [phone] Hba1c 7.9 % High <5.7 3 Est Avg Glucose 180 mg/dL High 60 - 110 Comprehensive Chem Profile 07/07/2020 [facility] Assembler Piano: [place] [address] [phone] Glucose 178 mg/dL High 74 - 99 [...] Little GFR Left ESRD GFR <15 on BOX SPINNER 2 Lab Result Notes: Pre-Diabetes 5.7 - [...] LITTLE GFR LEFT ESRD GFR <15 ON BOX SPINNER Procedures Date Code Description Status 2020 [id number] Diabetic Foot Exam Completed 03/22/2020 [id number] Diabetic Foot Exam Completed 03/03/2020 805643688 Diabetic Retinal Eye Exam Comple nayely 07/02/2019 024302208 Diabetic Retinal Eye Exam Comple nayely 03/26/2019 368573823 Diabetic Retinal Eye Exam Comple nayely Medical Devices Description No Information Available Encounters Type Date Location Provider Dx Diagnosis Office Visit 07/11/2020 2:15p [facility] 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, bilateral Luis Enrique Miner MD 10/11/2020 Z79.4 halfway (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 of insul in Luis Enrique Miner MD 10/11/2020 I48.0 Paroxysmal atrial fibrillation C ellen Miner MD 10/11/2020 Z79.01 termite helper (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 of antic oagulants Luis Enrique Miner MD 10/11/2020 I73.9 Peripheral vascular disease, uns pecified Luis Enrique Miner MD 10/11/2020 J84.112 Idiopathic pulmonary fibrosis Co llantony Miner MD 10/11/2020 R26.89 Other abnormalities of [...] polyneuropathy Luis Enrique Miner MD 07/11/2020 Z79.4 termite helper (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 of insul in Luis Enrique Miner MD 07/11/2020 I48.0 Paroxysmal atrial fibrillation C ellen Miner MD 07/11/2020 Z79.01 halfway (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 of antic oagulants Luis Enrique [...] atrial fibrillation L ab Schedule 07/07/2020 Z79.01 termite helper (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 of antic oagulants Luis Enrique Miner MD 07/07/2020 Z79.01 termite helper (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 of antic oagulants Lab Schedule Plan of Treatment Future Appointment(s):* 01/09/2021 10:10 am - Lab Schedule at [facility] * 01/16/2021 3:00 pm - Luis Enrique Miner MD at [facility] 10/11/2020 - Luis Enrique Miner [...] retinopathy without macular edema, bilateral * Z79.4 termite helper (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 of insulin * I48.0 Paroxysmal atrial fibrillation * Z79.01 termite helper (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 of anticoagulants * I73.9 Peripheral [...]
--- OUTSIDE RECORDS SUMMARY | 2020-10-20 21:48 | CCD ---
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 [id number] 7 ALLERGIES Allergen (clinical drug ingredient) Drug/Non Drug Allergy do cumented on EMR Reaction Allergy Type Onset Date Status gabapentin Gabapentin([facility] Code:[address]-91) Unknown Drug Allergy Active ENCOUNTERS from 1932 to 2020-09-05 Encounter Location Date Provider Diagnosis [facility] [address] [facility] [address] Aug, Pedro Miller 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 Domestic Violence: Question Answer Notes Status: Alcohol Screening: Question Answer Notes Did you have a drink containing alcohol in the past year? No Points 0 Interpretation Negative Tobacco Use: Question Answer Notes Are you a: never smoker REASON FOR REFERRAL No Information VITAL SIGNS Weight 195 lbs Aug, Height 70 in Aug, BMI 27.98 kg/m2 Aug, Heart Rate 78 /min Aug, Respiratory Rate 18 /min Aug, Temperature 99.3 degrees Fahrenheit Aug, Oximetry 94 Aug, Blood pressure systolic 130 mm Hg Aug, Blood pressure diastolic 64 mm Hg Aug, MEDICATIONS Medication SIG (Take, Route, Frequency, Duration) Notes Start Da te End Date Status Finasteride 5 MG 1 tablet Orally Once a day for 90 days Jun, Active Spironolactone 25 MG 1 tablet Orally for 30 day(s) Active Potassium Chloride 20 MEQ 1 packet with food Orally Once a day f or 30 day(s) Active Flomax 0.4 MG 2 capsule Orally Once a day Active Demadex Active Multivitamin - 1 tablet Orally Once a day for 30 day(s) Active Simvastatin 20 MG 1 tablet in the evening Orally Once a day for 30 da y(s) Active Pantoprazole Sodium 40 MG 1 tablet Orally Once a day for 30 day(s) Active Eliquis 2.5 MG as directed Orally Ac tive Basaglar KwikPen 100 UNIT/ML as directed Subcutaneous Active Vitamin D 50 MCG (1999 UT) 1 tablet Orally Once a day for 30 day(s) Active Humalog 100 UNIT/ML as directed Subcutaneous Active PreserVision/Lutein - as directed Orally Active Metoprolol Tartrate 50 MG 1 tablet with food Orally Twice a day for 30 day(s) Active Levothyroxine Sodium 75 MCG 1 tablet in the morning on an empty stomach Orally Once a day for 30 day(s) Active Cilostazol 100 MG 1 tablet 30 minutes before o r 2 hours after breakfast and dinner Orally Twice a day for 30 day(s) Active PROCEDURES from 1932 to 2020-09-05 Procedure Date Ordered Result Body Site uro PVR (Post Voiding Residual) Bladder Scan 2020-09-01 N/A RESULTS No Results REASON FOR VISIT 2 MO FU MEDICAL (GENERAL) HISTORY Type Description Date Medical History htn Medical History dm Medical History heart issues 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 toe amputation Surgical History quadruple bypass Hospitalization History heart at [facility] Hospitalization History stroke rick Goals Section No Information Health Concerns No Information MEDICAL EQUIPMENT No Information MENTAL STATUS No Information FUNCTIONAL STATUS No Information ASSESSMENTS Encounter Date Diagnosis Assessment Notes Treatment Notes Treatm ent Clinical Notes Aug, BPH loc w urin obs/LUTS (ICD-10 - N40.1) Aug, Poor urinary stream (ICD-10 - R39.12) PLAN OF TREATMENT Next Appt Details Provider Name:Jen Higgins, 2021-01-14 7 02:00:00 PM, [address], [place], [address], Insurance Providers Payer Name Payer Address Payer Phone Insured Name Patient Relati onship to Insured Coverage Start Date Coverage End Date MEDICARE COMPLETE [facility] [address] [address] [facility] [id number] [place] self
--- OUTSIDE RECORDS SUMMARY | 2020-10-20 21:48 | CCD | Continuity of Care Document ---
Author Author Lab Schedule, Daquan Stearns Organization Unknown Address [address] [address] Phone Unavailable Care Team Providers Care Bracelet And Brooch Maker Name Role Phone Luis Enrique Miner JR, MD AUTM Unavailable Problems Description No Information Available Social History Type Date Description Comments Sex Unknown Tobacco Use Start: Unknown End: Unknown Does not smoke Allergies, Adverse Reactions, Alerts Active Allergies Reaction Severity Comments Date Gabapentin rash 12/18/2018 Medications Active Medications SIG Qnty Indications Ordering Provide r Date Novolog Flexpen 100U nit/ML Solution Pen-Inject Inject 6U AT Breakfast,8U AT Lunch,5U AT Supper Plus Sliding Scale 101-150 2U 151-200 4U,201-250 6U,251-300 8U Greater Tsof413 15U 45ml Luis Enrique Miner MD 09/30/2020 BD Uf Mini Pen Needle [id number] Use Four Times A Day 120units Luis Enrique Miner MD 06/29/2020 Klor-Con M20 20Meq Tablets ER Take 1 Tablet Daily 90tabs Luis Enrique Miner MD 03/28/2020 Cilostazol 100mg Tablets Take 1 Tablet Twice A Day 180tabs Luis Enrique Miner MD 03/28/2020 BD Ultra Fine [place] Short 31G Misc use four times a day 120units Luis Enrique Miner MD 08/24 Torsemide 20mg Tablets Take 2 Tablets Daily 180tabs Luis Enrique Miner MD 07/15/2019 Freestyle Mai 14 Day/[place]/Flash Malka toring System Device use as directed [...] Capsules 1 by mouth every day Luis Enriqeu Miner MD 12/08/2018 Simvastatin 20mg Tablets take [...] Miner MD 12/06/2018 Spironolactone 25mg Tablets Take 1 Tablet Daily 90tabs Luis Enrique Miner MD 12/06/2018 Demadex 20mg Tablets take one tablets by mouth every day 180tabs Luis Enrique Miner MD 12/06/2018 Metoprolol Tartrate 50mg Tablets Take 1/2 Tablet In Am and 1 In PM 180tabs Luis Enrique Miner MD 0 Finasteride 5mg Tablets 1 by mouth Every Morning Unknown Immunizations CPT Code Status Date Vaccine Lot # U-Flu Given 05/29/2020 Influenza,Unspecified U-PneuC Given 08/24/2015 Prevnar 13 U-Pneum Given 09/26/2014 Pneumococcal,Unspecified 12432 Given 11/22/2011 Zostavax Vital Signs Date Vital Result Comment 07/11/2020 1:49pm BP Systolic 112 mmHg BP Diastolic 60 mmHg Height 69 inches 5'9" Weight 194.25 lb BMI (Body Mass Index) 28.7 kg/m2 03/28/2020 2:15pm BP Systolic 108 mmHg BP Diastolic 64 mmHg Heart Rate 80 /min Height 69 inches 5'9" Weight 189.00 lb BMI (Body Mass Index) 27.9 kg/m2 Results Test Acquired Date Facility Test Result H/L Range Note Laboratory test finding 07/07/2020 [facility] [address] [place], [place] [id number] [phone] PTH Intact 74.9 pg/mL Normal 18.5-88.0 Complete Blood Count 07/07/2020 [facility] Sp[facility]: [place] [address] [phone] WBC 7.9 x10*3/UL 4.1 - 10.9 RBC [...] 4.6 x10*3/UL 2.0 - 7.8 A1c 07/07/2020 [facility] Spool Sander: [place] [address] [phone] Hba1c 7.9 % High <5.7 1 Est Avg Glucose 180 mg/dL High 60 - 110 Comprehensive Chem Profile 07/07/2020 [facility]: Dr Luis Enrique Miner [place], [place] [id number] [phone] Glucose 178 mg/dL High 74 - 99 2 BUN 51 mg/dL High 7 - 18 3 Creatinine 2.0 mg/dL High 0.6 - 1.3 [...] Low >60 GFR 38 mL/min Low >60 4 1 Lab Result Notes: Pre-Diabetes 5.7 - 6.4 % Diabetes = or > 6.5% 2 100-125 mg/dL PRE-DIABET ES/FASTING >126 mg/dL DIABETES/FASTING 3 NOTE: BUN,CREAT VERIFED 4 CHRONIC KIDNEY DISEASE STAGI NG PER NKF STAGE I & II GFR >= 60 NORMAL TO MILDLY DECREASED STAGE III GFR 30-59 MODERATELY DECREASED STAGE IV GFR 15-29 SEVERELY DECREASED STAGE V GFR <15 VERY LITTLE GFR LEFT ESRD GFR <15 ON DIRECTOR OF ELEMENTARY EDUCATION Procedures Date Code Description Status 2020 [id number] Diabetic Foot Exam Completed 03/22/2020 [id number] Diabetic Foot Exam Completed 03/03/2020 [id number] Diabetic Retinal Eye Exam [facility] 07/02/2019 [id number] Diabetic Retinal Eye Exam [facility] 03/26/2019 [id number] Diabetic Retinal Eye Exam Comple [facility] Medical Devices Description No Information Available Encounters Type Date Location Provider Dx Diagnosis Office Visit 07/11/2020 2[facility]p [facility] 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 I50.32 Chronic diastolic (congestiv e) heart failure N18.4 Chronic kidney disease, stag e 4 (severe) 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.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 I48.0 Paroxysmal atrial fibrillati on Z79.01 half-way (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 of a nticoagulants I73.9 Peripheral vascular disease, unspecified J84.112 Idiopathic pulmonary fibrosi s R26.89 Other abnormalities of gait and mobility Z13.89 Encounter for screening for other disorder Assessments Date Code Description Provider 07/11/2020 I13.0 Hypertensive heart a nd chronic [...] polyneuropathy Luis Enrique Miner MD 07/11/2020 Z79.4 half-way (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 of insul in Luis Enrique Miner MD 07/11/2020 I48.0 Paroxysmal atrial fibrillation C ellen Miner MD 07/11/2020 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
--- OUTSIDE RECORDS SUMMARY | 2020-10-20 21:48 | CCD | Continuity of Care Document ---
Author Author Daquan NAVARRO DPM Organization Unknown Address [address] [place] [address], [facility] [address] [place] [address] Phone [phone] Care Team Providers Care Paper Bag Machine Operator Name Role Phone Luis Enrique Miner JR, M.D. [facility] [phone] Problems Active Problems Provider Date Amputated big toe Blair Navarro DPM Onset: 04/05/2020 Type 2 diabetes mellitus with diabetic polyneuropathy Blair Navarro DPM Onset: 04/05/2020 Onychomycosis Blair Navarro DPM Onset: 04/05/2020 Corns and callosities Blair Navarro DPM Onset: 04/05/2020 Type 2 diabetes mellitus with ulcer Blair Navarro DPM Ons et: 09/27/2020 Pressure ulcer of right foot stage 1 Blair Navarro DPM On set: 09/27/2020 Resolved Problems Type 2 diabetes mellitus with ulcer Blair [...] 0.5ML Im Utd Unknown Levofloxacin 250mg Tablets Ivy, Khalid MD Torsemide 10mg Tablets Isidra POTTER M.D.,[place] Potassium Chloride Tatiana ER 20Meq Tablets ER Isidra POTTER M.D.,[place] Cilostazol 100mg Tablets Isidra POTTER M.D.,[place] Basaglar Kwikpen 100 Unit/ML Solution Pen-Inject Isidra POTTER M.D.,[place] Eliquis 2.5mg Tablets [facility] Simvastatin 20mg Tablets Isidra POTTER M.D.,[place] Pantoprazole Sodium 40mg Tablets DR [facility], [facility] Torsemide 20mg Tablets Isidra POTTER M.D.,[place] Preservision Areds Edin Ruiz M.D.,[place] Synthroid 75mcg Tablets Isidra POTTER M.D.,[place] Spironolactone 25mg Tablets Isidra POTTER M.D.,[place] Tamsulosin HCL 0.4mg Capsules Unknown Refresh Plus 0.5% Solution Instill 1 Drop Into Both Eyes Every 2 Hours While Awake as Directed Unknown Metoprolol Tartrate 50mg Tablets Isidra POTTER M.D.,[place] BD Pen Needle/Mini/Ultra-Fine/31G X 5mm 31G X 5 mm Misc Unknown Immunizations Description No Information Available Vital Signs Date Vital Result Comment 03/22/2020 8:28am Height 69 inches 5'9" Weight 184.00 lb BP Systolic 100 mmHg BP Diastolic 64 mmHg Heart Rate 80 /min BMI (Body Mass Index) 27.2 kg/m2 Results Description No Information Available Procedures Date Code Description Status 09/27/2020 63280 Debridement Of Wound 20 SQ CM Co mpleted 08/02/2020 88795 Debridement 6-10 Nails Electric Completed 07/19/2020 88359 Debridement Of Wound 20 SQ CM Co mpleted 07/05/2020 25160 Debridement Of Wound 20 SQ CM Co mpleted 05/31/2020 18082 Debridement 6-10 Nails Electric Completed Medical Devices Description No Information Available Encounters Description No Information Available Assessments Date Code Description Provider 09/27/2020 E11.621 Type 2 diabetes mellitus with fo ot ulcer Blair Navarro, DPM 09/27/2020 L89.891 Pressure ulcer of other site, st age 1 Blair Navarro, DPM 08/02/2020 B35.1 Tinea unguium Blair Navarro, DPM 08/02/2020 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 Blair Navarro, DPM 07/19/2020 E11.621 Type 2 diabetes mellitus with fo ot ulcer Blair Navarro, DPM 07/19/2020 L89.891 Pressure ulcer of other site, st age 1 Blair Navarro, DP 07/05/2020 E11.621 Type 2 diabetes mellitus with fo ot ulcer Blair Navarro, DPM 07/05/2020 L89.891 Pressure ulcer of other site, st age 1 Blair Navarro, DPM 05/31/2020 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 Blair Navarro, DP 05/31/2020 B35.1 Tinea unguium Blair Navarro, DP 05/31/2020 M72.2 Plantar fascial fibromatosis And juju Navarro, DPM 05/31/2020 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 Blair Navarro DPM Plan of Treatment Future Appointment(s):* 10/20/2020 1:30 pm - Blair Navarro DPM at [facility] * 10/11/2020 4:00 pm - Blair Navarro DPM at [facility] Functional Status Description No Information Available Mental Status Description No Information Available Referrals Description No Information Available
--- OUTSIDE RECORDS SUMMARY | 2020-10-20 21:48 | CCD | Continuity of Care Document ---
Author Author Daquan NAVARRO DPM Organization Unknown Address [address] [place] [address], [address] [place] [address] Phone [phone] Care Team Providers Care Zipper Setter Chainstitch Name Role Phone Luis Enrique Miner JR, M.D. AUT [phone] Problems Active Problems Provider Date Amputated big toe Blair Navarro DPM Onset: 04/05/2020 Type 2 diabetes mellitus with diabetic polyneuropathy Blair Navarro DPM Onset: 04/05/2020 Onychomycosis Blair Navarro DPM Onset: 04/05/2020 Corns and callosities Blair Navarro DPM Onset: 04/05/2020 Type 2 diabetes mellitus with ulcer Blair Navarro DPM Ons et: 07/13/2020 Pressure ulcer of other site, stage 1 Blair Navarro DPM O nset: 07/13/2020 Resolved Problems Pain in limb Blair Navarro DPM Onset: 04/05/2020 Resolved: 07/13/2020 Social History Type Date Description Comments Sex [...] Tablets Katelynn Haynes MD Torsemide 10mg Tablets Luis Enrique Miner JR, M.D. Potassium Chloride Tatiana ER 20Meq Tablets ER Isidra POTTER M.D.,[place] Cilostazol 100mg Tablets Isidra POTTER M.D.,[place] Basaglar Kwikpen 100 Unit/ML Solution Pen-Inject Isidra POTTER M.D.,[place] Eliquis 2.5mg Tablets [facility] Simvastatin 20mg Tablets Isidra POTTER M.D.,[place] Pantoprazole Sodium 40mg Tablets DR [facility], [facility] Torsemide 20mg Tablets Isidra POTTER M.D.,[place] Preservision Areds Tablets Joseph Blakely,[place] Synthroid 75mcg Tablets Isidra POTTER M.D.,[place] Spironolactone 25mg Tablets Isidra POTTER M.D.,[place] Tamsulosin HCL 0.4mg Capsules Unknown Refresh Plus 0.5% Solution Instill 1 Drop Into Both Eyes Every 2 Hours While Awake as Directed Unknown Metoprolol Tartrate 50mg Tablets Isidra POTTER M.D.,[place] BD Pen Needle/Mini/Ultra-Fine/31G X 5mm 31G X 5 mm Misc Unknown Immunizations Description No Information Available Vital Signs Date Vital Result Comment 03/22/2020 8:28am Height 69 inches 5'9" Weight 184.00 lb BP Systolic 100 mmHg BP Diastolic 64 mmHg Heart Rate 80 /min BMI (Body Mass Index) 27.2 kg/m2 Results Description No Information Available Procedures Date Code Description Status 08/02/2020 68090 Debridement 6-10 Nails Electric Completed 07/19/2020 25955 Debridement Of Wound 20 SQ CM Co mpleted 07/05/2020 07255 Debridement Of Wound 20 SQ CM Co mpleted 05/31/2020 93045 Debridement 6-10 Nails Electric Completed 03/22/2020 86673 Debridement 6-10 Nails Electric Completed 03/22/2020 51111 Paring/Cutting Benign Single Les n Completed Medical Devices Description No Information Available Encounters Type Date Location Provider Dx Diagnosis Office Visit 03/22/2020 3:00p [facility] Blair Navarro DPM Z89.411 Acquired absence of [...] 2 diabetes mellitus with fo ot ulcer ANA LAURA LoweryM 07/05/2020 L89.891 Pressure ulcer of other site, st age 1 Blair Navarro DPM 05/31/2020 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 Blair Navarro, REBECA 05/31/2020 B35.1 Tinea unguium Blair Navarro, REBECA [...] DPM 03/22/2020 B35.1 Tinea unguium Blair Navarro, ERBECA 03/22/2020 L84 Corns and callosities Blair Navarro DPM Plan of Treatment Future Appointment(s):* 10/11/2020 2:30 pm - Blair Navarro DPM at [facility] Functional Status Description No Information Available Mental Status Description No Information Available Referrals Description No Information Available
--- OUTSIDE RECORDS SUMMARY | 2020-10-20 21:48 | CCD | Continuity of Care Document ---
Author Author Daquan NAVARRO DPM Organization Unknown Address [address] [place] [address], [address] [place] [address] Phone [phone] Care Team Providers Care Cloth Weigher Name Role Phone Luis Enrique Miner JR, M.D. AUT [phone] Problems Active Problems Provider Date Amputated big [...] Tatiana ER 20Meq Tablets ER Isidra POTTER M.D.,[place] Cilostazol 100mg Tablets Isidra POTTER M.D.,[place] Basaglar Kwikpen 100 Unit/ML Solution Pen-Inject Isidra POTTER M.D.,[place] Eliquis 2.5mg Tablets Kristel [facility]elyFORM[facility] Simvastatin 20mg Tablets Isidra POTTER M.D.,[place] Pantoprazole Sodium 40mg Tablets DR Kristel BlakelyFORMERLY [facility], [facility] Torsemide 20mg Tablets Isidra POTTER M.D.,[place] Preservision Areds Tablets Joseph Blakely,[place] Synthroid 75mcg Tablets Isidra POTTER M.D.,[place] Spironolactone 25mg Tablets Isidra POTTER M.D.,[place] Tamsulosin HCL 0.4mg Capsules Unknown Refresh Plus 0.5% Solution Instill 1 Drop Into Both Eyes Every 2 Hours While Awake as Directed Unknown Metoprolol Tartrate 50mg Tablets Isidra POTTER M.D.,[place] BD Pen Needle/Mini/Ultra-Fine/31G X 5mm 31G X 5 mm Misc Unknown Immunizations Description No Information Available Vital Signs Date Vital Result Comment 03/22/2020 8:28am Height 69 inches 5'9" Weight 184.00 lb BP Systolic 100 mmHg BP Diastolic 64 mmHg Heart Rate 80 /min BMI (Body Mass Index) 27.2 kg/m2 Results Description No Information Available Procedures Date Code Description Status 07/19/2020 33617 Debridement Of Wound 20 SQ CM Co mpleted 07/05/2020 87789 Debridement Of Wound 20 SQ CM Co mpleted 05/31/2020 93417 Debridement 6-10 Nails Electric Completed 03/22/2020 50246 Debridement 6-10 Nails Electric Completed 03/22/2020 56234 Paring/Cutting Benign Single Les n Completed Medical Devices Description No Information Available Encounters Type Date Location Provider Dx Diagnosis Office Visit 03/22/2020 3:00[facility] Blair Navarro, REBECA 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 M79.676 Pain in unspecified toe(s) 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 B35.1 Tinea unguium L84 Corns and callosities Assessments Date Code Description Provider 07/19/2020 E11.621 Type 2 diabetes mellitus with fo ot ulcer Blair Navarro, DPM 07/19/2020 L89.891 Pressure ulcer of other site, st age 1 Blair Navarro, DPM 07/05/2020 E11.621 Type 2 diabetes mellitus with fo ot ulcer Blair Navarro, DPM 07/05/2020 L89.891 Pressure ulcer of other site, st age 1 Blair Navarro, ANA LAURAM 05/31/2020 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 Blair Navarro, REBECA 05/31/2020 B35.1 Tinea unguium Blair Navarro, DPM 05/31/2020 M72.2 Plantar fascial fibromatosis And juju Navarro, DPM 05/31/2020 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 Blair Navarro, REBECA 03/22/2020 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
--- OUTSIDE RECORDS SUMMARY | 2020-10-20 21:48 | CCD | Continuity of Care Document ---
Author Author Daquan NAVARRO DPM Organization Unknown Address [address] [place] [address], [address] [place] [address] Phone [phone] Care Team Providers Care Asphalt Smoother Name Role Phone Luis Enrique Miner JR, M.D. AUTM [phone] Problems Active Problems Provider Date Amputated big [...] Haynes MD Torsemide 10mg Tablets Isidra POTTER M.D.,[place] Potassium Chloride Tatiana ER 20Meq Tablets ER Isidra POTTER M.D.,[place] Cilostazol 100mg Tablets Isidra POTTER M.D.,[place] Basaglar Kwikpen 100 Unit/ML Solution Pen-Inject Isidra POTTER M.D.,[place] Eliquis 2.5mg Tablets Kristel BlakelyFORM[facility]LY [facility], [facility] Simvastatin 20mg Tablets Isidra POTTER M.D.,[place] Pantoprazole Sodium 40mg Tablets DR Kristel BlakelyFORMERLY [facility], [facility] Torsemide 20mg Tablets Isidra POTTER M.D.,[place] Preservision Areds Tablets Joseph Blakely,[place] Synthroid 75mcg Tablets Isidra POTTER M.D.,[place] Spironolactone 25mg Tablets Isidra POTTER M.D.,[place] Tamsulosin HCL 0.4mg Capsules Unknown Refresh Plus 0.5% Solution Instill 1 Drop Into Both Eyes Every 2 Hours While Awake as Directed Unknown Metoprolol Tartrate 50mg Tablets Isidra POTTER M.D.,[place] BD Pen Needle/Mini/Ultra-Fine/31G X 5mm 31G X 5 mm Misc Unknown Immunizations Description No Information Available Vital Signs Date Vital Result Comment 03/22/2020 8:28am Height 69 inches 5'9" Weight 184.00 lb BP Systolic 100 mmHg BP Diastolic 64 mmHg Heart Rate 80 /min BMI (Body Mass Index) 27.2 kg/m2 Results Description No Information Available Procedures Date Code Description Status 09/27/2020 83635 Debridement Of Wound 20 SQ CM Co mpleted 08/02/2020 79034 Debridement 6-10 Nails Electric Completed 07/19/2020 73808 Debridement Of Wound 20 SQ CM Co mpleted 07/05/2020 49309 Debridement Of Wound 20 SQ CM Co mpleted 05/31/2020 20289 Debridement 6-10 Nails Electric Completed Medical Devices [...] site, st age 1 Blair Navarro, DP 05/31/2020 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 Blair Navarro, DPM 05/31/2020 B35.1 Tinea unguium Blair Navarro, DPM 05/31/2020 M72.2 Plantar fascial fibromatosis And juju Navarro, DPM 05/31/2020 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 Blair Navarro DPM Plan of Treatment Future Appointment(s):* 10/11/2020 4:00 pm - Blair Navarro DPM at [facility] * 10/06/2020 1:15 pm - Blair Navarro DPM at [facility] Functional Status Description No Information Available Mental Status Description No Information Available Referrals Description No Information Available
--- OUTSIDE RECORDS SUMMARY | 2020-10-20 21:48 | CCD | Continuity of Care Document ---
Author Author Lab Schedule, Daquan Stearns Organization Unknown Address [address] [address] Phone Unavailable Care Team Providers Care Lead Software Tester Name Role Phone Luis Enrique Miner JR, [...] 101-150 2U 151-200 4U,201-250 6U,251-300 8U Greater Uppg290 15U 45ml Luis Enrique Miner MD 09/30/2020 BD Uf Mini Pen Needle [id number] Use Four Times A Day 120units Luis Enrique Miner MD 06/29/2020 Klor-Con M20 20Meq Tablets ER Take 1 Tablet Daily 90tabs Luis Enrique Miner MD 03/28/2020 Cilostazol 100mg Tablets Take 1 Tablet Twice A Day 180tabs Luis Enrique Miner MD 03/28/2020 BD Ultra Fine [place] Short 31G / 16 Misc use four times a day 120units Luis Enrique Miner MD 08/24 Torsemide 20mg Tablets Take 2 Tablets Daily 180tabs Luis Enrique Miner MD 07/15/2019 Freestyle Mai 14 Day/[place]/Flash Malka toring System Device use as directed [...] 08/24/2015 Prevnar 13 U-Pneum Given 09/26/2014 Pneumococcal,Unspecified 48574 Given 11/22/2011 Zostavax Vital Signs Date Vital [...] Profil 10/07/2020 [facility] [address] [place] [address] [phone] Glucose, Fasting 97 mg/dL Normal 70-100 Blood [...] 0.9 Normal Laboratory test finding 10/07/2020 [facility] [address] [place] [address] [phone] Thyroid Stimulating Hormone 4.990 uIU/ML High 0. 358-3.740 Complete Blood Count 10/07/2020 [facility] Armored Transport Service Manager: [place] [address] [phone] WBC 9.0 x10*3/UL 4.1 - 10.9 RBC [...] 5.4 x10*3/UL 2.0 - 7.8 A1c 10/07/2020 [facility] Armored Transport Service Manager: [place] [address] [phone] Hba1c 7.8 % High <5.7 2 Est Avg Glucose 177 mg/dL High 60 - 110 Laboratory test finding 07/07/2020 [facility] [address] [place] [address] [phone] PTH Intact 74.9 pg/mL Normal 18.5-88.0 Complete Blood Count 07/07/2020 [facility] Armored Transport Service Manager: [place] [address] [phone] WBC 7.9 x10*3/UL 4.1 - 10.9 RBC [...] 4.6 x10*3/UL 2.0 - 7.8 A1c 07/07/2020 [facility] Armored Transport Service Manager: Dr Luis Enrique Miner [place], [place] [id number] [phone] Hba1c 7.9 % High <5.7 3 Est Avg Glucose 180 mg/dL High 60 - 110 Comprehensive Chem Profile 07/07/2020 [facility] Armored Transport Service Manager: [place] [address] [phone] Glucose 178 mg/dL High 74 - 99 [...] Little GFR Left ESRD GFR <15 on BARTENDERS 2 Lab Result Notes: Pre-Diabetes 5.7 - [...] LITTLE GFR LEFT ESRD GFR <15 ON BARTENDERS Procedures Date Code Description Status 2020 [id number] Diabetic Foot Exam Completed 03/22/2020 [id number] Diabetic Foot Exam Completed 03/03/2020 [id number] Diabetic Retinal Eye Exam Comple nayely 07/02/2019 [id number] Diabetic Retinal Eye Exam Comple nayely 03/26/2019 [id number] Diabetic Retinal Eye Exam [facility] Medical Devices Description No Information Available Encounters Type Date Location Provider Dx Diagnosis Office Visit 07/11/2020 2:15p [facility] 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 Z79.4 after school program director (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 of i nsulin I48.0 Paroxysmal atrial fibrillati on Z79.01 after school program director (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 of a nticoagulants I73.9 Peripheral [...] bilateral Luis Enrique Miner MD 10/11/2020 Z79.4 senior living (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 of insul in Luis Enrique Miner MD 10/11/2020 I48.0 Paroxysmal atrial fibrillation C ellen Miner MD 10/11/2020 Z79.01 senior living (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 of antic oagulants Luis Enrique [...] polyneuropathy Luis Enrique Miner MD 07/11/2020 Z79.4 after school program director (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 of insul in Luis Enrique Miner MD 07/11/2020 I48.0 Paroxysmal atrial fibrillation C ellen Miner MD 07/11/2020 Z79.01 senior living (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 of antic oagulants Luis Enrique [...] atrial fibrillation L ab Schedule 07/07/2020 Z79.01 after school program director (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 of antic oagulants Luis Enrique Miner MD 07/07/2020 Z79.01 senior living (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 of antic oagulants Lab Schedule Plan of Treatment Future Appointment(s):* 01/09/2021 10:10 am - Lab Schedule at [facility] * 01/16/2021 3:00 pm - Luis Enrique Miner MD at [facility] 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
--- OUTSIDE RECORDS SUMMARY | 2020-10-20 21:49 | CCD | Continuity of Care Document ---
Author Author Daquan Miner MD Organization Unknown Address [address] [facility] [address] [place] [address] Phone [phone] Care Team Providers Care Ski Tow Operator Name Role Phone Luis Enrique Miner JR, MD AUTM Unavailable Problems Description No Information Available Social History Type Date Description Comments Sex Unknown Tobacco Use Start: Unknown End: Unknown Does not smoke Allergies, Adverse Reactions, Alerts Active Allergies Reaction Severity Comments Date Gabapentin rash 12/18/2018 Medications Active Medications SIG Qnty Indications Ordering Provide r Date BD Uf Mini Pen Needle [id number] Use Four Times A Day 120units Luis Enrique Miner MD 06/29/2020 Klor-Con M20 20Meq Tablets ER Take 1 Tablet Daily 90tabs Luis Enrique Miner MD 03/28/2020 Cilostazol 100mg Tablets Take 1 Tablet Twice A Day 180tabs Luis Enrique Miner MD 03/28/2020 BD Ultra Fine [place] Short 31G 5/ 16 Misc use four times a day 120units Luis Enrique Miner MD 08/24 Torsemide 20mg Tablets Take 2 Tablets Daily 180tabs Luis Enrique Miner MD 07/15/2019 Freestyle Mai 14 Day/[place]/Flash Malka toring System Device use as directed e11.65;z79.4 1unnikko Miner MD 12/18/2018 Freestyle Mai 14 Day/Sensor/Flash Malka toring System Misc use as directed e11.65 1unnikko dixon MD 12/18/2018 Accu-Chek Grace Plus Strips test qid E11.65 400units Luis Enrique Miner MD 12/18/2018 Levothyroxine Sodium 75mcg Tablets Take 1 Tablet Daily 90tabs Luis Enrique Miner MD 12/08/2018 Vitamin D3 2000Unit Capsules 1 by mouth every day Luis Enrique Miner MD 12/08/2018 Simvastatin 20mg Tablets take one tablet by mouth at bedtime 90tabs Luis Enrique Miner MD [address] 1 by mouth every morning Luis Enrique Miner MD 12/08/2018 Tamsulosin HCL [...] Daily 90tabs Luis Enrique Miner MD 12/06/2018 Humalog Kwikpen 100U nit/ML Solution Pen-Inject 6 units breakfast, lunch 8 units, supper 5 units plus scale = 101-150=2units 151-200=4 units 201-250=6 units 251-300=8 units 400+ give 15u 45ml Luis Enrique Miner MD 12/06/2018 Demadex 20mg [...] 08/24/2015 Prevnar 13 U-Pneum Given 09/26/2014 Pneumococcal,Unspecified 60105 Given 11/22/2011 Zostavax Vital Signs Date Vital [...] H/L Range Note Laboratory test finding 07/07/2020 [facility] [address] [place] [address] [phone] PTH Intact 74.9 pg/mL Normal 18.5-88.0 Complete Blood Count 07/07/2020 [facility] Network Consultant: [place] [address] [phone] WBC 7.9 x10*3/UL 4.1 - 10.9 RBC [...] 4.6 x10*3/UL 2.0 - 7.8 A1c 07/07/2020 [facility] Network Consultant: [place] [address] [phone] Hba1c 7.9 % High <5.7 1 Est Avg Glucose 180 mg/dL High 60 - 110 Comprehensive Chem Profile 07/07/2020 [facility] Network Consultant: Dr Luis Enrique Miner [place], [place] [id number] [phone] Glucose 178 mg/dL High 74 - 99 [...] >60 GFR 38 mL/min Low >60 4 Complete Blood Count 03/28/2020 [facility] Network Consultant: Dr Luis Enrique Miner [place], [place] [id number] [phone] WBC 10.3 x10*3/UL 4.1 - 10.9 RBC 4.50 x10*6/UL 4.20 - 6.30 Hemoglobin 14.2 g/dL 12.0 - 18.0 Hematocrit 41.5 % 37.0 - 51.0 MCV 92.2 fL 80.0 - 97.0 MCH 31.6 pg 26.0 - 32.0 MCHC 34.2 g/dL 31.0 - 38.0 RDW 12.8 % 11.6 - 13.7 PLT 193 x10*3/UL 140 - 440 MPV 8.9 FL 7.8 - 11.0 Lymph % 37.5 % 10.0 - 58.5 Mid % 9.2 % 1.7 - 9.3 Neut % 53.3 % 37.0 - 92.0 Lymph # 3.8 x10*3/UL 0.6 - 4.1 Mid # 1.0 x10*3/UL High 0.1 - 0.6 Neut # 5.5 x10*3/UL 2.0 - 7.8 Laboratory test finding 03/28/2020 [facility], Network Consultant: [place] [address] [phone] B-Type Natriuretic Peptide 118.0 pg/mL High 0.0 - 100.0 A1c 03/28/2020 [facility] , Network Consultant: [place] [address] [phone] Hba1c 7.2 g/dL High 4.8 - 5.6 5 Est Avg Glucose 160 mg/dL High 60 - 110 Comprehensive Chem Profile 03/28/2020 [facility], Network Consultant: [place] [address] [phone] Glucose 199 mg/dL High 74 - 99 6 BUN 37 mg/dL High 7 - 18 Creatinine 1.8 mg/dL High 0.6 - 1.3 Sodium 142 mEq/L 136 - 145 Potassium 4.1 mEq/L 3.5 - 5.1 Chloride 103 mEq/L 98 - 107 Carbon Dioxide 29 mEq/L 21 - 32 Calcium 9.5 mg/dL 8.5 - 10.1 Alk. Phosphatase 139 mg/dL High 46 - 116 Total Bilirubin 0.5 mg/dL 0.2 - 1.0 Ast (Sgot) 23 U/L 15 - 37 Alt (SGPT) 35 U/L 12 - 78 Albumin 3.5 g/dL 3.4 - 5.0 Total Protein 8.4 g/dL High 6.4 - 8.2 7 A/G Ratio 0.71 CALC Low 1.00 - 1.90 GFR 36 mL/min Low >60 GFR 43 mL/min Low >60 8 Complete Blood Count 02/18/2020 [facility] Network Consultant: [place] [address] [phone] WBC 9.6 x10*3/UL 4.1 - 10.9 RBC 4.44 x10*6/UL 4.20 - 6.30 Hemoglobin 14.0 g/dL 12.0 - 18.0 Hematocrit 40.8 % 37.0 - 51.0 MCV 91.8 fL 80.0 - 97.0 MCH 31.5 pg 26.0 - 32.0 MCHC 34.3 g/dL 31.0 - 38.0 RDW 13.0 % 11.6 - 13.7 PLT 192 x10*3/UL 140 - 440 MPV 9.1 FL 7.8 - 11.0 Lymph % 32.3 % 10.0 - 58.5 Mid % 8.7 % 1.7 - 9.3 Neut % 59.0 % 37.0 - 92.0 Lymph # 3.1 x10*3/UL 0.6 - 4.1 Mid # 0.9 x10*3/UL High 0.1 - 0.6 Neut # 5.6 x10*3/UL 2.0 - 7.8 Laboratory test finding 02/18/2020 [facility], Network Consultant: [place] [address] [phone] B-Type Natriuretic Peptide 73.0 pg/mL 0.0 - 100.0 A1c 02/18/2020 [facility] , Network Consultant: [place] [address] [phone] Hba1c 7.2 g/dL High 4.8 - 5.6 9 Est Avg Glucose 160 mg/dL High 60 - 110 Basic Metabolic Panel 02/18/2020 [facility] Network Consultant: Dr [place] [address] [phone] Glucose 107 mg/dL High 74 - 99 10 BUN 53 mg/dL High 7 - 18 Creatinine 1.9 mg/dL High 0.6 - 1.3 Sodium 142 mEq/L 136 - 145 Potassium 4.1 mEq/L 3.5 - 5.1 Chloride 103 mEq/L 98 - 107 Carbon Dioxide 31 mEq/L 21 - 32 Calcium 9.3 mg/dL 8.5 - 10.1 GFR 34 mL/min Low >60 GFR 41 mL/min Low >60 11 Laboratory test finding 02/18/2020 [facility], Network Consultant: [place] [address] [phone] Thyroid Stimulating Hormone 4.77 uIU/mL High 0.3 6 - 3.74 1 Lab Result Notes: Pre-Diabetes 5.7 - [...] LITTLE GFR LEFT ESRD GFR <15 ON TRUCK RENTAL CLERK 5 Lab Result Notes: Pre-Diabetes 5.7 - 6.4 % Diabetes = or > 6.5% 6 100-125 mg/dL PRE-DIABET ES/FASTING >126 mg/dL DIABETES/FASTING 7 NOTE: RESULT VERIFIED. 8 CHRONIC KIDNEY DISEASE STAGI NG PER NKF STAGE I & II GFR >= 60 NORMAL TO MILDLY DECREASED STAGE III GFR 30-59 MODERATELY DECREASED STAGE IV GFR 15-29 SEVERELY DECREASED STAGE V GFR <15 VERY LITTLE GFR LEFT ESRD GFR <15 ON TRUCK RENTAL CLERK 9 Lab Result Notes: Pre-Diabetes 5.7 - 6.4 % Diabetes = or > 6.5% 10 100-125 mg/dL PRE-DIABET ES/FASTING >126 mg/dL DIABETES/FASTING 11 CHRONIC KIDNEY DISEASE STAGI NG PER NKF STAGE I & II GFR >= 60 NORMAL TO MILDLY DECREASED STAGE III GFR 30-59 MODERATELY DECREASED STAGE IV GFR 15-29 SEVERELY DECREASED STAGE V GFR <15 VERY LITTLE GFR LEFT ESRD GFR <15 ON TRUCK RENTAL CLERK Procedures Date Code Description Status 2020 [id number] Diabetic Foot Exam Completed 03/22/2020 [id number] Diabetic Foot Exam Completed 03/03/2020 [id number] Diabetic Retinal Eye Exam [facility] 07/02/2019 [id number] Diabetic Retinal Eye Exam [facility] 03/26/2019 [id number] Diabetic Retinal Eye Exam [facility]ple [facility] Medical Devices Description No Information Available Encounters Type Date Location Provider Dx Diagnosis Office Visit 07/11/2020 2:15p [facility] 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 I50.32 Chronic diastolic (congestiv e) heart failure N18.4 Chronic kidney disease, stag e 4 (severe) 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 Z79.4 MCC (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 of i nsulin I48.0 Paroxysmal atrial fibrillati on Z79.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 (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 of a nticoagulants I73.9 Peripheral vascular disease, unspecified J84.112 Idiopathic pulmonary fibrosi s R26.89 Other abnormalities of gait and mobility Z13.89 Encounter for screening for other disorder Office Visit 03/28/2020 2[facility]p [facility] 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 I50.32 Chronic diastolic (congestiv e) heart failure N18.4 Chronic kidney disease, stag e 4 (severe) 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 Z79.4 intermodal dispatcher (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 of i nsulin I48.0 Paroxysmal atrial fibrillati on Z79.01 MCC (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 of a nticoagulants J84.112 Idiopathic pulmonary fibrosi s I73.9 Peripheral vascular disease, unspecified R26.89 Other abnormalities of gait and mobility Office Visit 02/18/2020 10:00a [facility] Miner MD 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 I50.32 Chronic diastolic (congestiv e) heart failure N18.4 Chronic kidney disease, stag e 4 (severe) 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, bi E11.65 Type 2 diabetes mellitus wit h hyperglycemia Z79.4 MCC (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 of i nsulin I48.0 Paroxysmal atrial fibrillati on Z79.01 [facility]CC (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 of a nticoagulants J84.112 Idiopathic pulmonary fibrosi s I73.9 Peripheral vascular disease, unspecified R26.89 Other abnormalities of gait and mobility Assessments Date Code Description Provider 07/11/2020 I13.0 [...] polyneuropathy Luis Enrique Miner MD 07/11/2020 Z79.4 [facility] (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 of insul in Luis Enrique Miner MD 07/11/2020 I48.0 Paroxysmal atrial fibrillation C ellen Miner MD 07/11/2020 Z79.01 [facility] (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 of antic oagulants Luis Enrique [...] atrial fibrillation L ab Schedule 07/07/2020 Z79.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 dispatcher (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 of antic oagulants Luis Enrique Miner MD 07/07/2020 Z79.01 [facility] (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 of antic oagulants Lab Schedule 03/28/2020 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 kidney disease, or unspecified chronic kidney disease Luis Enrique Miner MD 03/28/2020 I50.32 Chronic diastolic (congestive) h eart failure Luis Enrique Miner MD 03/28/2020 N18.4 Chronic kidney disease, stage 4 (severe) Luis Enrique Miner MD 03/28/2020 N25.81 Secondary hyperparathyroidism of renal origin Luis Enrique Miner MD 03/28/2020 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 Luis Enrique Miner MD 03/28/2020 Z79.4 MCC (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 of insul in Luis Enrique Miner MD 03/28/2020 I48.0 Paroxysmal atrial fibrillation C ellen Miner MD 03/28/2020 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.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 dispatcher (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 of antic oagulants Luis Enrique Miner MD 03/28/2020 J84.112 Idiopathic pulmonary fibrosis Co flavio Miner MD 03/28/2020 I73.9 Peripheral vascular disease, uns pecified Luis Enrique Miner MD 03/28/2020 R26.89 Other abnormalities of gait and mobility Luis Enrique Miner MD 02/18/2020 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 kidney disease, or unspecified chronic kidney disease Luis Enrique Miner MD 02/18/2020 I50.32 Chronic diastolic (congestive) h eart failure Luis Enrique Miner MD 02/18/2020 N18.4 Chronic kidney disease, stage 4 (severe) Luis Enrique Miner MD 02/18/2020 N25.81 Secondary hyperparathyroidism of renal origin Luis Enrique Miner MD 02/18/2020 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 Luis Enrique Miner MD 02/18/2020 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 Luis Enrique Miner MD 02/18/2020 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, bilateral Luis Enrique Miner MD 02/18/2020 E11.65 Type 2 diabetes mellitus with hy perglycemia Luis Enrique Miner MD 02/18/2020 Z79.4 MCC (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 of insul in Luis Enrique Miner MD 02/18/2020 I48.0 Paroxysmal atrial fibrillation C ellen Miner MD 02/18/2020 Z79.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 dispatcher (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 of antic oagulants Luis Enrique Miner MD 02/18/2020 J84.112 Idiopathic pulmonary fibrosis Co flavio Miner MD 02/18/2020 I73.9 Peripheral vascular disease, uns pecified Luis Enrique Miner MD 02/18/2020 R26.89 Other abnormalities of gait and mobility Luis Enrique Miner MD Plan of Treatment Future Appointment(s):* 10/07/2020 2:00 pm - Lab Schedule at [facility] * 10/11/2020 2:15 pm - [facility] 07/11/2020 - Luis Enrique Miner MD* [...] diabetes mellitus with diabetic polyneuropathy * Z79.4 intermodal dispatcher (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 of insulin * I48.0 Paroxysmal atrial fibrillation * Z79.01 MCC (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 of anticoagulants * I73.9 Peripheral vascular disease, unspecified * J84.112 Idiopathic pulmonary fibrosis * R26.89 Other abnormalities of gait and mobility * Z13.89 Encounter for screening for other disorder Functional Status Description No Information Available Mental Status Description No Information Available Referrals Refer to Reason for Referral Status Appt Date Blair Thompson DPM CONSULT FOR NON HEALING SPOT LT GREAT TOE Pat ient Notified 03/22/2020 [address] [place] [address] [phone]
--- OUTSIDE RECORDS SUMMARY | 2020-10-20 21:49 | CCD | Continuity of Care Document ---
Author Author Daquan NAVARRO DPM Organization Unknown Address [address] [place] [address], [address] [place] [address] Phone [phone] Care Team Providers Care Senior Java Engineer Name Role Phone Luis Enrique Miner JR, M.D. AUT [phone] Problems Active Problems Provider Date Amputated big [...] Tatiana ER 20Meq Tablets ER Isidra POTTER M.D.,[place] Cilostazol 100mg Tablets Isidra POTTER M.D.,[place] Basaglar Kwikpen 100 Unit/ML Solution Pen-Inject Isidra POTTER M.D.,[place] Eliquis 2.5mg Tablets [facility] Simvastatin 20mg Tablets Isidra POTTER M.D.,[place] Pantoprazole Sodium 40mg Tablets DR [facility] Torsemide 20mg Tablets Isidra POTTER M.D.,[place] Preservision Areds Tablets Joseph Blakely,[place] Synthroid 75mcg Tablets Isidra POTTER M.D.,[place] Spironolactone 25mg Tablets Isidra POTTER M.D.,[place] Tamsulosin HCL 0.4mg Capsules Unknown Refresh Plus 0.5% Solution Instill 1 Drop Into Both Eyes Every 2 Hours While Awake as Directed Unknown Metoprolol Tartrate 50mg Tablets Isidra POTTER M.D.,[place] BD Pen Needle/Mini/Ultra-Fine/31G X 5mm 31G X 5 mm Misc Unknown Immunizations Description No Information Available Vital Signs Date Vital Result Comment 03/22/2020 8:28am Height 69 inches 5'9" Weight 184.00 lb BP Systolic 100 mmHg BP Diastolic 64 mmHg Heart Rate 80 /min BMI (Body Mass Index) 27.2 kg/m2 Results Description No Information Available Procedures Date Code Description Status 07/19/2020 21953 Debridement Of Wound 20 SQ CM Co mpleted 07/05/2020 37564 Debridement Of Wound 20 SQ CM Co mpleted 05/31/2020 91087 Debridement 6-10 Nails Electric Completed 03/22/2020 91003 Debridement 6-10 Nails Electric Completed 03/22/2020 16282 Paring/Cutting Benign Single Les n Completed Medical Devices Description No Information Available Encounters Type Date Location Provider Dx Diagnosis Office Visit 03/22/2020 3:00[facility] Blair Navarro, REBECA Z89.411 Acquired [...] M79.676 Pain in unspecified toe(s) Altaf Navarro, ANA LAURAM 03/22/2020 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 Blair Navarro, REBECA 03/22/2020 B35.1 Tinea unguium Blair Navarro, DPM 03/22/2020 L84 Corns and callosities Blair Navarro DPM Plan of Treatment Future Appointment(s):* 08/02/2020 2:15 pm - Blair Navarro DPM at [facility] Functional Status Description No Information Available Mental Status Description No Information Available Referrals Description No Information Available
--- OUTSIDE RECORDS SUMMARY | 2020-10-20 21:49 | CCD ---
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 [id number] ALLERGIES Allergen (clinical drug ingredient) Drug/Non Drug Allergy do cumented on EMR Reaction Allergy Type Onset Date Status gabapentin Gabapentin([facility] Code:[address]-92) Unknown Drug Allergy Active ENCOUNTERS from 1930 to 2020-07-25 Encounter Location Date Provider Diagnosis [facility] Urology [address] [place] [address] Jun, Pedro Miller 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 Domestic Violence: Question Answer Notes Status: Alcohol Screening: Question Answer Notes Did you have a drink containing alcohol in the past year? No Points 0 Interpretation Negative Tobacco Use: Question Answer Notes Are you a: never smoker REASON FOR REFERRAL No Information VITAL SIGNS Weight 194.4 lbs Jun, Height 70 in Jun, BMI 27.89 kg/m2 Jun, Heart Rate 62 /min Jun, Respiratory Rate 18 /min Jun, Temperature 97.5 degrees Fahrenheit Jun, Oximetry 99%ra Jun, Blood pressure systolic 145 mm Hg Jun, Blood pressure diastolic 78 mm Hg Jun, MEDICATIONS Medication SIG (Take, Route, Frequency, Duration) Start Date En d Date Status Flomax 0.4 MG 1 capsule Orally Once a day for 30 day(s) Active Multivitamin - 1 tablet Orally Once a day for 30 day(s) Active Eliquis 2.5 MG as directed Orally Active Basaglar KwikPen 100 UNIT/ML as directed Subcutaneous Active Humalog 100 UNIT/ML as directed Subcutaneous Active Potassium Chloride 20 MEQ 1 packet with food Orally Once a day f or 30 day(s) Active Demadex Active PreserVision/Lutein - as directed Orally Active Vitamin D 50 MCG (1999) 1 tablet Orally Once a day for 30 day(s) Active Levothyroxine Sodium 75 MCG 1 tablet in the morning on an empty stomach Orally Once a day for 30 day(s) Active Cilostazol 100 MG 1 tablet 30 minutes before o r 2 hours after breakfast and dinner Orally Twice a day for 30 day(s) Active Finasteride 5 MG 1 tablet Orally Once a day for 90 days Jun, 0 Active Spironolactone 25 MG 1 tablet Orally for 30 day(s) Active Simvastatin 20 MG 1 tablet in the evening Orally Once a day for 30 day(s) Active Pantoprazole Sodium 40 MG 1 tablet Orally Once a day for 30 day(s) Active Metoprolol Tartrate 50 MG 1 tablet with food Orally Twice a day for 30 day(s) Active PROCEDURES No Information RESULTS Component Value Reference Range UA URINALYSIS Reviewed date:06/29/2020 08:40:54 Interpretation: Performing Lab:Formerly [facility], [facility] [address] [facility] [address] , [place] [address] REASON FOR VISIT NEW PATIENT MEDICAL (GENERAL) HISTORY Type Description Date Medical History htn Medical History dm Medical History heart issues 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 toe amputation Surgical History quadruple bypass Hospitalization History heart at [facility] Hospitalization History stroke rick Goals Section No Information Health Concerns No Information MEDICAL EQUIPMENT No Information MENTAL STATUS No Information FUNCTIONAL STATUS No Information ASSESSMENTS Encounter Date Diagnosis Notes 13 Oct, 2020 Gross hematuria (ICD-10 - R31.0) Jun, Poor urinary stream (ICD-10 - R39.12) Jun, BPH loc w urin obs/LUTS (ICD-10 - N40.1) PLAN OF TREATMENT Medication Medication Name Sig Start Date Stop Date Finasteride 5 MG 1 tablet Orally Once a day for 90 days Jun, Treatment Notes Test Name Order Date uro PVR (Post Voiding Residual) Bladder Scan 9 Urinalysis, no micro 2020-07-25 Next Appt Details Provider Name:Pedro Alyssa Miller, 2020-09-01 01:00:00 PM, [address] [place], [address], Insurance Providers Payer Name Payer Address Payer Phone Insured Name Patient Relati onship to Insured Coverage Start Date Coverage End Date MEDICARE COMPLETE [facility] [address] [facility] [id number] [employer] self
--- OUTSIDE RECORDS SUMMARY | 2020-10-20 21:50 | CCD ---
Author Author [facility] Organization [facility] Address Unknown Phone Unavailable Care Team Providers Care Office Messenger Name Role Phone Gil Humphries MD Unavailable Unavailable Gil Humphries MD Unavailable Unavailable Gil Humphries MD Unavailable Unavailable Gil Humphries MD Unavailable Unavailable Gil Humphries MD Unavailable Unavailable Gil Humphries MD Unavailable Unavailable Gil Humphries MD Unavailable Unavailable Gil Humphries MD Unavailable Unavailable Gil Humphries MD Unavailable Unavailable Gil Humphries MD Unavailable Unavailable Gil Humphries MD Unavailable Unavailable Gil Humphries MD Unavailable Unavailable Gil Humphries MD Unavailable Unavailable Gil Humphries MD Unavailable Unavailable Gil Humphries MD Unavailable Unavailable Gil Humphries MD Unavailable Unavailable Gil Humphries MD Unavailable Unavailable Gil Humphries MD Unavailable Unavailable Gil Humphries MD Unavailable Unavailable Gil Humphries MD Unavailable Unavailable Gil Humphries MD Unavailable Unavailable Gil Humphries MD Unavailable Unavailable Gil Humphries MD Unavailable Unavailable Gil Humphries MD Unavailable Unavailable Gil Humphries MD Unavailable Unavailable Gil Humphries MD Unavailable Unavailable Gil Humphries MD Unavailable Unavailable Gil Humphries MD Unavailable Unavailable Gil Humphries MD Unavailable Unavailable Gil Humphries MD Unavailable Unavailable Gil Humphries MD Unavailable Unavailable Gil Humphries MD Unavailable Unavailable Gil Humphries MD Unavailable Unavailable Gil Humphries MD Unavailable Unavailable Gil Humphries MD Unavailable Unavailable Gil Humphries MD Unavailable Unavailable Gil Humphries MD Unavailable Unavailable Gil Humphries MD Unavailable Unavailable Gil Humphries MD Unavailable Unavailable Gil Humphries MD Unavailable Unavailable Gil Humphries MD Unavailable Unavailable Gil Humphries MD Unavailable Unavailable Gil Humphries MD Unavailable Unavailable Gil Humphries MD Unavailable Unavailable Gil Humphries MD Unavailable Unavailable Gil Humphries MD Unavailable Unavailable Gil Humphries MD Unavailable Unavailable Gil Humphries MD Unavailable Unavailable Gil Humphries MD Unavailable Unavailable Gil Humphries MD Unavailable Unavailable Gil Humphries MD Unavailable Unavailable Gil Humphries MD Unavailable Unavailable Gil Humphries MD Unavailable Unavailable Gil Humphries MD Unavailable Unavailable Gil Humphries MD Unavailable Unavailable Gil Humphries MD Unavailable Unavailable Gil Humphries MD Unavailable Unavailable Gil Humphries MD Unavailable Unavailable Juju NAVARRO DPM Unavailable Unavailable Juju NAVARRO DPM Unavailable Unavailable Juju NAVARRO DPM Unavailable Unavailable Juju NAVARRO DPM Unavailable Unavailable Juju NAVARRO DPM Unavailable Unavailable Juju NAVARRO DPM Unavailable Unavailable Juju NAVARRO DPM Unavailable Unavailable Juju NAVARRO DPM Unavailable Unavailable MAJAK, R XAVI DPM Unavailable Unavailable MAJAK, R XAVI DPM Unavailable Unavailable MAJAK, R XAVI DPM Unavailable Unavailable MAJAK, R AXVI DPM Unavailable Unavailable MAJAK, R XAVI DPM Unavailable Unavailable MAJAK, R XAVI DPM Unavailable Unavailable MAJAK, R XAVI DPM Unavailable Unavailable MAJAK, R XAVI DPM Unavailable Unavailable MAJAK, R XAVI DPM Unavailable Unavailable MAJAK, R XAVI DPM Unavailable Unavailable MAJAK, R XAVI DPM Unavailable Unavailable MAJAK, R XAVI DPM Unavailable Unavailable MAJAK, R XAVI DPM Unavailable Unavailable MAJAK, R XAVI DPM Unavailable Unavailable MAJAK, R XAVI DPM Unavailable Unavailable MAJAK, R XAVI DPM Unavailable Unavailable MAJAK, R XAVI DPM Unavailable Unavailable MAJAK, R XAVI DPM Unavailable Unavailable MAJAK, R XAVI DPM Unavailable Unavailable MAJAK, R XAVI DPM Unavailable Unavailable MAJAK, R XAVI DPM Unavailable Unavailable MAJAK, R XAVI DPM Unavailable Unavailable Mich Miner MD Unavailable Unavailable IsidraMich murguia MD Unavailable Unavailable IsidraMich murguia MD Unavailable Unavailable Mich Miner MD Unavailable Unavailable Mich Miner MD Unavailable Unavailable Mich Miner MD Unavailable Unavailable WendenMich murguia MD Unavailable Unavailable WendenMich murguia MD Unavailable Unavailable WendenMich murguia MD Unavailable Unavailable WendenMich murguia MD Unavailable Unavailable Mich Miner MD Unavailable Unavailable WendenMich murguia MD Unavailable Unavailable IsidraMich murguia MD Unavailable Unavailable IsidraMich murguia MD Unavailable Unavailable WendenMich murguia MD Unavailable Unavailable IsidraMich murguia MD Unavailable Unavailable WendenMich murguia MD Unavailable Unavailable IsidraMich murguia MD Unavailable Unavailable WendenMich murguia MD Unavailable Unavailable WendenMich murguia MD Unavailable Unavailable IsidraMich murguia MD Unavailable Unavailable IsidraMich murguia MD Unavailable Unavailable IsidraMich murguia MD Unavailable Unavailable IsidraMich MD Unavailable Unavailable IsidraMich MD Unavailable Unavailable IsidraMich murguia MD Unavailable Unavailable WendenMich murguia MD Unavailable Unavailable WendenMich murguia MD Unavailable Unavailable WendenMich MD Unavailable Unavailable IsidraMich murguia MD Unavailable Unavailable IsidraMich murguia MD Unavailable Unavailable IsidraMich murguia MD Unavailable Unavailable WendenMich MD Unavailable Unavailable IsidraMich MD Unavailable Unavailable WendenMich MD Unavailable Unavailable IsidraMich MD Unavailable Unavailable IsidraMich MD Unavailable Unavailable IsidraMich MD Unavailable Unavailable WendenMich MD Unavailable Unavailable WendenMich MD Unavailable Unavailable WendenMich MD Unavailable Unavailable WendenMich MD Unavailable Unavailable WendenMich MD Unavailable Unavailable WendenMich MD Unavailable Unavailable WendenMich MD Unavailable Unavailable WendenMich MD Unavailable Unavailable IsidraMich MD Unavailable Unavailable WendenMich MD Unavailable Unavailable WendenMich MD Unavailable Unavailable WendenMich MD Unavailable Unavailable IsidraMich MD Unavailable Unavailable WendenMich MD Unavailable Unavailable IsidraMich MD Unavailable Unavailable WendenMich MD Unavailable Unavailable WendenMich MD Unavailable Unavailable IsidraMich MD Unavailable Unavailable WendenMich MD Unavailable Unavailable WendenMich MD Unavailable Unavailable IsidraMich MD Unavailable Unavailable WendenMich MD Unavailable Unavailable IsidraMich MD Unavailable Unavailable IsidraMich MD Unavailable Unavailable WendenMich MD Unavailable Unavailable WendenMich MD Unavailable Unavailable IsidraMich MD Unavailable Unavailable WendenMich MD Unavailable Unavailable WendenMich MD Unavailable Unavailable IsidraMich murguia MD Unavailable Unavailable IsidraMich murguia MD Unavailable Unavailable WendenMich mugruia MD Unavailable Unavailable IsidraMich murguia MD Unavailable Unavailable WendenMich MD Unavailable Unavailable IsidraMich murguia MD Unavailable Unavailable IsidraMich murguia MD Unavailable Unavailable WendenMich murguia MD Unavailable Unavailable WendenMich murguia MD Unavailable Unavailable WendenMich MD Unavailable Unavailable WendenMich MD Unavailable Unavailable WendenMich MD Unavailable Unavailable IsidraMich MD Unavailable Unavailable IsidraMich MD Unavailable Unavailable WendenMich MD Unavailable Unavailable IsidraMich murguia MD Unavailable Unavailable WendenMich MD Unavailable Unavailable IsidraMich MD Unavailable Unavailable WendenMich MD Unavailable Unavailable Leslie Salcidoian DIRECTOR OF BUSINESS CONTINUITY Unavailable Unavailable Omari, Taylor DIRECTOR OF BUSINESS CONTINUITY Unavailable Unavailable Omari, Taylor DIRECTOR OF BUSINESS CONTINUITY Unavailable Unavailable Omari, Taylor DIRECTOR OF BUSINESS CONTINUITY Unavailable Unavailable Omari, Taylor DIRECTOR OF BUSINESS CONTINUITY Unavailable Unavailable Omari, Taylor DIRECTOR OF BUSINESS CONTINUITY Unavailable Unavailable Omari, Taylor DIRECTOR OF BUSINESS CONTINUITY Unavailable Unavailable Omari, Taylor DIRECTOR OF BUSINESS CONTINUITY Unavailable Unavailable Omari, Taylor DIRECTOR OF BUSINESS CONTINUITY Unavailable Unavailable Omari, Taylor DIRECTOR OF BUSINESS CONTINUITY Unavailable Unavailable Omari, Taylor DIRECTOR OF BUSINESS CONTINUITY Unavailable Unavailable Omari, Taylor DIRECTOR OF BUSINESS CONTINUITY Unavailable Unavailable Omari, Taylor DIRECTOR OF BUSINESS CONTINUITY Unavailable Unavailable Omari, Taylor DIRECTOR OF BUSINESS CONTINUITY Unavailable Unavailable Omari, Taylor DIRECTOR OF BUSINESS CONTINUITY Unavailable Unavailable Omari, Taylor DIRECTOR OF BUSINESS CONTINUITY Unavailable Unavailable Omari, Taylor DIRECTOR OF BUSINESS CONTINUITY Unavailable Unavailable Omari, Taylor DIRECTOR OF BUSINESS CONTINUITY Unavailable Unavailable Omari, Taylor DIRECTOR OF BUSINESS CONTINUITY Unavailable Unavailable Omari, Taylor DIRECTOR OF BUSINESS CONTINUITY Unavailable Unavailable Omari, Taylor DIRECTOR OF BUSINESS CONTINUITY Unavailable Unavailable Omari, Taylor DIRECTOR OF BUSINESS CONTINUITY Unavailable Unavailable Omari, Taylor DIRECTOR OF BUSINESS CONTINUITY Unavailable Unavailable Omari, Taylor DIRECTOR OF BUSINESS CONTINUITY Unavailable Unavailable Omair, Taylor DIRECTOR OF BUSINESS CONTINUITY Unavailable Unavailable Omari, Taylor DIRECTOR OF BUSINESS CONTINUITY Unavailable Unavailable Omari, Taylor DIRECTOR OF BUSINESS CONTINUITY Unavailable Unavailable Champion, N King CABLE MAKER Unavailable Unavailable Champion, N King CABLE MAKER Unavailable Unavailable Robert, N King CABLE MAKER Unavailable Unavailable Champion, N King CABLE MAKER Unavailable Unavailable Robert, N King CABLE MAKER Unavailable Unavailable Champion, N King CABLE MAKER Unavailable Unavailable Robert, N King CABLE MAKER Unavailable Unavailable Champion, N King CABLE MAKER Unavailable Unavailable Robert, N King CABLE MAKER Unavailable Unavailable Champion, N King CABLE MAKER Unavailable Unavailable Champion, N King CABLE MAKER Unavailable Unavailable Champion, N King CABLE MAKER Unavailable Unavailable Champion, N King CABLE MAKER Unavailable Unavailable Robert, N King CABLE MAKER Unavailable Unavailable Robert, N King CABLE MAKER Unavailable Unavailable Robert, N King CABLE MAKER Unavailable Unavailable Champion, N King CABLE MAKER Unavailable Unavailable Robert, N King CABLE MAKER Unavailable Unavailable Robert, N King CABLE MAKER Unavailable Unavailable Robert, N King CABLE MAKER Unavailable Unavailable Robert, N King CABLE MAKER Unavailable Unavailable Robert, N King CABLE MAKER Unavailable Unavailable Champion, N King CABLE MAKER Unavailable Unavailable Champion, N King CABLE MAKER Unavailable Unavailable Champion, N King CABLE MAKER Unavailable Unavailable Robert, N King CABLE MAKER Unavailable Unavailable Champion, N King CABLE MAKER Unavailable Unavailable Champion, N King CABLE MAKER Unavailable Unavailable Robert, N King CABLE MAKER Unavailable Unavailable Champion, N King CABLE MAKER Unavailable Unavailable Robert, N King CABLE MAKER Unavailable Unavailable Omari, Taylor DIRECTOR OF BUSINESS CONTINUITY Unavailable Unavailable Omari, Taylor DIRECTOR OF BUSINESS CONTINUITY Unavailable Unavailable Omari, Taylor DIRECTOR OF BUSINESS CONTINUITY Unavailable Unavailable Omari, Taylor DIRECTOR OF BUSINESS CONTINUITY Unavailable Unavailable Omari, Taylor DIRECTOR OF BUSINESS CONTINUITY Unavailable Unavailable Omari, Taylor DIRECTOR OF BUSINESS CONTINUITY Unavailable Unavailable Omari, Taylor DIRECTOR OF BUSINESS CONTINUITY Unavailable Unavailable Omari, Taylor DIRECTOR OF BUSINESS CONTINUITY Unavailable Unavailable Omari, Taylor DIRECTOR OF BUSINESS CONTINUITY Unavailable Unavailable Omari, Taylor DIRECTOR OF BUSINESS CONTINUITY Unavailable Unavailable Omari, Taylor DIRECTOR OF BUSINESS CONTINUITY Unavailable Unavailable Omari, Taylor DIRECTOR OF BUSINESS CONTINUITY Unavailable Unavailable Omari, Taylor DIRECTOR OF BUSINESS CONTINUITY Unavailable Unavailable Omari, Taylor DIRECTOR OF BUSINESS CONTINUITY Unavailable Unavailable Omari, Taylor DIRECTOR OF BUSINESS CONTINUITY Unavailable Unavailable Omari, Taylor DIRECTOR OF BUSINESS CONTINUITY Unavailable Unavailable Omari, Taylor DIRECTOR OF BUSINESS CONTINUITY Unavailable Unavailable Omari, Taylor DIRECTOR OF BUSINESS CONTINUITY Unavailable Unavailable Omari, Taylor DIRECTOR OF BUSINESS CONTINUITY Unavailable Unavailable Omari, Taylor DIRECTOR OF BUSINESS CONTINUITY Unavailable Unavailable Omari, Taylor DIRECTOR OF BUSINESS CONTINUITY Unavailable Unavailable Omari, Taylor DIRECTOR OF BUSINESS CONTINUITY Unavailable Unavailable Omari, Taylor DIRECTOR OF BUSINESS CONTINUITY Unavailable Unavailable Omari, Taylor DIRECTOR OF BUSINESS CONTINUITY Unavailable Unavailable Omari, Taylor DIRECTOR OF BUSINESS CONTINUITY Unavailable Unavailable Omari, Taylor DIRECTOR OF BUSINESS CONTINUITY Unavailable Unavailable Omari, Taylor DIRECTOR OF BUSINESS CONTINUITY Unavailable Unavailable ADRIANAKODI MD Unavailable Unavailable ADRIANAKODI MD Unavailable Unavailable ADRIANAKODI MD Unavailable Unavailable ADRIANAKODI MD Unavailable Unavailable ADRIANAKODI MD Unavailable Unavailable ADRIANAKODI MD Unavailable Unavailable ADRIANAKODI MD Unavailable Unavailable ADRIANAKODI MD Unavailable Unavailable ADRIANAKODI MD Unavailable Unavailable ADRIANAKODI MD Unavailable Unavailable ADRIANAKODI MD Unavailable Unavailable ADRIANAKODI MD Unavailable Unavailable ADRIANAKODI MD Unavailable Unavailable ADRIANAKODI MD Unavailable Unavailable ADRIANAKODI MD Unavailable Unavailable ADRIANAKODI MD Unavailable Unavailable ADRIANAKODI MD Unavailable Unavailable ADRIANAKODI MD Unavailable Unavailable ADRIANAKODI MD Unavailable Unavailable ADRIANAKODI MD Unavailable Unavailable ADRIANA, KODI AVILEZ Unavailable Unavailable ADRIANAKODI MD Unavailable Unavailable ADRIANAKODI MD Unavailable Unavailable ADRIANAKODI MD Unavailable Unavailable Re-disclosure Warning The records that you are about to access may contain information from federally-assisted alcohol or drug abuse programs. If such information is present, then the following federally mandated warning applies: This information has been disclosed to you from records protected by federal confidentiality rules (42 CFR part 2). The federal rules prohibit you from making any further disclosure of this information unless further disclosure is expressly permitted by the written consent of the person to whom it pertains or as otherwise permitted by 42 CFR part 2. A general authorization for the release of medical or other information is NOT sufficient for this purpose. The Federal rules restrict any use of the information to criminally investigate or prosecute any alcohol or drug abuse patient.The records that you are about to access may contain highly sensitive health information, the redisclosure of which is protected by Article 27-F of the [facility] Public Health law. If you continue you may have access to information: Regarding HIV / AIDS; Provided by facilities licensed or operated by the [facility] Office of Mental Health; or Provided by the [facility] Office for People With Developmental Disabilities. If such information is present, then the following [facility] mandated warning applies: This information has been disclosed to you from confidential records which are protected by state law. State law prohibits you from making any further disclosure of this information without the specific written consent of the person to whom it pertains, or as otherwise permitted by law. Any unauthorized further disclosure in violation of state law may result in a fine or intermediate sentence or both. A general authorization for the release of medical or other information is NOT sufficient authorization for further disc losure. Allergies and Adverse Reactions Type Description Substance Reaction Status Data Source(s ) Propensity to adverse reactions PIRFENIDONE pirfenidone Rash Low Ac tive [facility] Low Family History Family Member Name Family Member Gender Family Member Status Date o f Status Description Data Source(s) Unknown Male Problem [facility] ([facility]) Unknown Male Problem [facility] ([facility]) Unknown Unknown Problem [facility] ([facility]) Mother, Sisters, 5 children Unknown Female Problem [facility] ([facility] [place]) Encounters Encounter Providers Location Date Indications Data Source(s ) Outpatient [email or web address] 10/14/2020 09:38:02 AM EST [facility] Outpatient Attender: Luis Enrique Parada 0 10/11/2020 01:15:00 PM EST MED[facility] ([facility] ) Outpatient SJP.CT-SJP.SYR 09/08/2020 09:49:21 AM EST [facility] Outpatient [address], [facility] [id number] 09/01/2020 12:00:00 AM EST eCW1 (Formerly [facility], 1928–1983) Outpatient Attender: King ROQUEP.HARMAN-SJP.HARMAN 020 12:00:00 AM EST - 08/15/2020 01:52:38 PM EST [facility] Outpatient SJP.CT-SJP.SYR 07/25/2020 01:22:23 PM EST [facility] Outpatient Attender: Luis Enrique Parada 1 02:15:00 PM EDT MED[facility] ([facility] ) Outpatient [address] [facility] [address] [id number] 06/28/2020 12:00:00 AM EDT eCW1 (Formerly [facility], 1928–1983) Outpatient [email or web address] 06/13/2020 09:42:27 AM EDT [facility] Outpatient Attender: King SHIN.HARMAN-SJP.HARMAN 020 12:00:00 AM EDT - 05/16/2020 03:18:51 PM EDT [facility] Outpatient SJP.CT-SJP.SYR 05/02/2020 11:15:22 AM EDT [facility] Outpatient Attender: Luis Enrique Parada 0 03/28/2020 02:00:00 PM EDT MEDENT ([facility] ) Outpatient Attender: XAVI NAVARRO [facility] 03/2020 03:00:00 PM EDT [facility] ([facility] Outpatient SJP.[email or web address].SYR 03/21/2020 11:18:24 AM EDT [facility] Outpatient Attender: Luis Enrique Parada 0 02/18/2020 10:00:00 AM EDT MEDENT ([facility] ) Outpatient SJP.CT-SJP.SYR 02/05/2020 09:05:47 AM EDT [facility] Outpatient Attender: Luis Enrique Parada 0 01/06/2020 02:45:00 PM EDT MEDENT ([facility] ) Outpatient SJP.HARMAN-SJP.HARMAN 12/31/2019 12:00 :00 AM EDT - 12/31/2019 03:13:07 PM EDT [facility] Outpatient Attender: Gil SHIN.HARMAN-SJP.HARMAN 12/15 12:00:00 AM EDT - 12/31/2019 03:21:05 PM EDT [facility] Outpatient SJP.CT-SJP.SYR 11/16/2019 02:16:55 PM EST [facility] Outpatient Attender: KODI WRIGHT MD [facility] 10/27/2019 10:14:03 AM EST [facility] Outpatient Attender: Luis Enrique Parada 0 10/14/2019 01:15:00 PM EST [facility] ([facility] ) Outpatient SJP.[email or web address] 10/07/2019 09:00:32 AM EST [facility] Outpatient SJP.CT-[email or web address].SYR 09/25/2019 09:03:49 AM EST [facility] Outpatient SJP.HARMAN-SJP 09/24/2019 05:18:59 PM EST [facility] Outpatient Referrer: King Jones NP SJP.HARMAN-SJP.HARMAN 020 12:00:00 AM EST - 09/24/2019 03:11:55 PM EST [facility] Outpatient Referrer: Taylor WHITEHEAD 09/22/2019 01:53:00 PM EST [facility] Outpatient Attender: Taylor Parada 01:00:00 PM EST MEDENT ([facility] ) Immunizations Vaccine Date Status Description Data Source(s) VARICELLA-ZOSTER VIRUS GLYCOPROTEIN E,REC/AS01B ADJUVA NT/PF 07/12/2020 12:00:00 AM EDT completed [facility] This CVX code allows reporting of a vacc ination when formulation is unknown (for example, when recording a Influenza vaccination when noted on a vaccination card) 05/29/2020 11:39:00 AM EDT completed MEDEN T ([facility]) INFLUENZA VACCINE QUADRIVALENT (65 YR UP)/MF59 C.1/PF 05/29/2020 12:00:00 AM EDT completed [facility] Medications Medication Brand Name Start Date Product Form Dose Route Admi nistrative Instructions Pharmacy Instructions Status Indications Reaction Description Data Source(s) Metoprolol Tartrate 25 MG Oral Tablet Metoprolol Tartrate 12:00:00 AM EST ORAL active [facility] ([facility]) 3 ML Insulin, Aspart, Human 100 UNT/ML Pen Injector [NovoLog ] Novolog Flexpen 09/30/2020 12:00:00 AM EST active [facility] ([facility]) . UNIT 09/24/2020 12:00:00 AM EST Injectable 1 DIRECTED DIRECTED SOLD: 09/24/2020 [facility] 31 gauge x 3/16" 06/29/2020 12:00:00 AM EDT needle 120 USE FOUR TIMES A DAY USE FOUR TIMES A DAY SOLD: 09/02/2020 [facility] BD Uf Mini Pen Needle [id number] 06/29/2020 12:00:00 AM EDT active MED[facility] ([facility]) 31 gauge x 3/16" 06/29/2020 12:00:00 AM EDT needle 120 USE FOUR TIMES A DAY USE FOUR TIMES A DAY SOLD: 07/03/2020 [facility] 31 gauge x 3/16" 06/29/2020 12:00:00 AM EDT needle 120 USE FOUR TIMES A DAY USE FOUR TIMES A DAY SOLD: 10/02/2020 [facility] 31 gauge x 3/16" 06/29/2020 12:00:00 AM EDT needle 120 USE FOUR TIMES A DAY USE FOUR TIMES A DAY SOLD: 08/03/2020 [facility] Finasteride 5 MG Oral Tablet finasteride (PROSCAR) 5 M G tablet finasteride (PROSCAR) 5 MG tablet 06/28/2020 12:00:00 AM EDT a ctive daily [facility] Finasteride 5 MG Oral Tablet Finasteride 5 MG 06/28/2020 12:00:00 A M EDT 1.0 {tablet} active Finasteride 5 MG eCW1 ( [facility]) Finasteride 5 MG Oral Tablet Finasteride 5 MG 06/28/2020 12:00:00 A M EDT 1.0 {tablet} active Finasteride 5 MG eCW1 ( [facility]) Metoprolol Tartrate 50 MG Oral Tablet me toprolol tartrate (LOPRESSOR) 50 MG tablet metoprolol tartrate (LOPRESSOR) 50 MG tablet 05/16/2020 12:0 0:00 AM EDT 25 mg Oral active Take 0.5 tablets (25 mg total) by mouth 2 (two) times a day [facility] pantoprazole 40 MG Delayed Release Oral Tablet pantoprazole (PROTONIX) 40 MG tablet pantoprazole (PROTONIX) 40 MG tablet 05/13/2020 12:00:00 AM EDT 40 mg Oral active Take 1 tablet (40 mg total) by mouth daily [facility] apixaban 2.5 MG Oral Tablet [Eliquis] ELIQUIS 2.5 MG T ABS tablet ELIQUIS 2.5 MG TABS tablet 04/19/2020 12:00:00 AM EDT active TAKE 1 TABLET TWICE A DAY [facility] 100 unit/mL 03/30/2020 12:00:00 AM EDT insulin pen 45 GIVE 6 UNITS UNDER THE SKIN WITH BREAKFAST, 8 UNITS WITH LUNCH, 5 UNITS WITH SUPPER PLUS SCALE; 101- 150=2 UNITS, 151-200=4UNITS, 201-250=6UNITS, 251-300=8UNITS, 400 OR OVER 15 UNITS GIVE 6 UNITS UNDER THE SKIN WITH BREAKFA ST, 8 UNITS WITH LUNCH, 5 UNITS WITH SUPPER PLUS SCALE; 101-150=2 UNITS, 151-200=4UNITS, 201-250=6UNITS, 251- 300=8UNITS, 400 OR OVER 15 UNITS SOLD: 04/05/2020 [facility] cilostazol 100 MG Oral Tablet Cilostazol 03/28/2020 12:00:00 AM EDT active [facility] ([facility]) Klor-Con M20 Klor-Con M20 03/28/2020 12:00:00 AM EDT active [facility] ([facility]) KLOR-CON M20 20 MEQ tablet [id number] 03/28/2020 12:00:00 AM EDT active daily [facility] Carboxymethylcellulose Sodium 5 MG/ML Op hthalmic Solution REFRESH PLUS 0.5 % SOLN REFRESH PLUS 0.5 % SOLN 03/16/2020 12:00:00 AM EDT active [facility] 0.5 % 03/16/2020 12:00:00 AM EDT dropperette 30 INSTILL 1 DROP INTO BOTH EYES EVERY 2 HOURS WHILE AWAKE DIRECTED INSTILL 1 DROP INTO BOTH EYES EVERY 2 HOURS WHILE AWAKE DIRECTED SOLD: 09/15/2020 [facility] 0.5 % 03/16/2020 12:00:00 AM EDT dropperette 30 INSTILL 1 DROP INTO BOTH EYES EVERY 2 HOURS WHILE AWAKE DIRECTED INSTILL 1 DROP INTO BOTH EYES EVERY 2 HOURS WHILE AWAKE DIRECTED SOLD: 03/16/2020 [facility] 0.5 % 03/16/2020 12:00:00 AM EDT dropperette 30 INSTILL 1 DROP INTO BOTH EYES EVERY 2 HOURS WHILE AWAKE DIRECTED INSTILL 1 DROP INTO BOTH EYES EVERY 2 HOURS WHILE AWAKE DIRECTED SOLD: 07/05/2020 [facility] 31 gauge x 3/16" 11/14/2019 12:00:00 AM EST needle 120 USE FOUR TIMES A DAY USE FOUR TIMES A DAY SOLD: 02/18/2020 [facility] 31 gauge x 3/16" 11/14/2019 12:00:00 AM EST needle 120 USE FOUR TIMES A DAY USE FOUR TIMES A DAY SOLD: 11/15/2019 [facility] 31 gauge x 3/16" 11/14/2019 12:00:00 AM EST needle 120 USE FOUR TIMES A DAY USE FOUR TIMES A DAY SOLD: 12/14/2019 [facility] 31 gauge x 3/16" 11/14/2019 12:00:00 AM EST needle 120 USE FOUR TIMES A DAY USE FOUR TIMES A DAY SOLD: 01/20/2020 [facility] pantoprazole 40 MG Delayed Release Oral Tablet pantoprazole (PROTONIX) 40 MG tablet pantoprazole (PROTONIX) 40 MG tablet 10/26/2019 12:00:00 AM EST 40 mg Oral active Take 1 tablet (40 mg total) by mouth daily [facility] apixaban 2.5 MG Oral Tablet apixaban (ELIQUIS) 2.5 MG TABS tablet apixaban (ELIQUIS) 2.5 MG TABS tablet 10/26/2019 12:00:00 AM EST 2.5 mg Oral active Take 1 tablet (2.5 mg total) by mouth 2 (two) times a day [facility] 31 gauge x 3/16" 09/15/2019 12:00:00 AM EST needle 120 USE DIRECTED TO INJECT INSULIN FOUR TIMES A DAY USE DIRECTED TO INJECT INSULIN FOUR T IMES A DAY SOLD: 10/16/2019 [facility] 31 gauge x 3/16" 09/15/2019 12:00:00 AM EST needle 60 USE DIRECTED TO INJECT INSULIN FOUR TIMES A DAY USE DIRECTED TO INJECT INSULIN FOUR T IMES A DAY SOLD: 03/21/2020 [facility] 31 gauge x 3/16" 09/15/2019 12:00:00 AM EST needle 120 USE DIRECTED TO INJECT INSULIN FOUR TIMES A DAY USE DIRECTED TO INJECT INSULIN FOUR T IMES A DAY SOLD: 09/18/2019 [facility] 31 gauge x 3/16" 08/24/2019 12:00:00 AM EST needle 120 USE FOUR TIMES A DAY USE FOUR TIMES A DAY SOLD: 06/03/2020 [facility] 31 gauge x 3/16" 08/24/2019 12:00:00 AM EST needle 120 USE FOUR TIMES A DAY USE FOUR TIMES A DAY SOLD: 04/29/2020 [facility] 31 gauge x 3/16" 08/24/2019 12:00:00 AM EST needle 120 USE FOUR TIMES A DAY USE FOUR TIMES A DAY SOLD: 04/05/2020 [facility] BD Ultra Fine [place] 08/24/2019 12:00:00 AM EST active [facility] ([facility]) 31 gauge x 3/16" 08/24/2019 12:00:00 AM EST needle 120 USE FOUR TIMES A DAY USE FOUR TIMES A DAY SOLD: 08/24/2019 [facility] Potassium Chloride 10 MEQ Extended Relea se Oral Tablet potassium chloride (K- DUR) 10 MEQ tablet potassium chloride (K-DUR) 10 MEQ tablet 11/21/2018 12 :00:00 AM EST 10 meq Oral aborted Take 10 mEq by m outh daily [facility] Insurance Providers Payer name Policy type / Coverage type Policy ID Covered republican ID Covered republican's relationship to delgado Policy Delgado Plan Information MEDICARE COMPLETE [id number] SP [id number] MEDICARE COMPLETE [id number] SP [id number] [facility] MEDICARE [id number] Jovanna [id number] SP [id number] [facility] MEDICARE [id number] MEDICARE COMPLETE-C O [id number] S [id number] MEDICARE COMPLETE-UHC O [id number] S [id number] UHC UNITED MEDICARE COMPLETE G [id number] Self [id number] Medicare [place] Gov[employer]ic Medicare Primary [id number] Self [id number] [facility] [employer] Commercial [id number] Self [id number] Medicare [place] Govt [employer] Medicare Primary [id number] Self [id number] Medicare [place] [employer] Medicare Primary [id number] Self [id number] [facility] [employer] Commercial [id number] Self [id number] Medicare [place] Govt Servic Medicare Primary [id number] Self [id number] SELF PAY SP [facility] Medicare Solutions Commercial [id number] Self [id number] [facility] Ppo Health Maintenance Organization (HMO) [id number] Self [id number] [facility] Medicare Solutions Commercial [id number] Self [id number] Medicare/Unitedhealthcare Commercial [id number] Self [id number] [facility] MEDICARE PI PI [facility] Medicare Solution [id number] 18 [id number] [facility] MEDICARE [id number] Jovanna [id number] [facility] [employer] Commercial [id number] Self [id number] [facility] Medicare Solutions Health Maintenance Organization (HMO) Self [facility] [employer] Commercial Self [facility] Medicare F [id number] SELF [id number] [facility] Medicare F need SELF need MEDICARE COMPLETE-[facility] O [id number] S [id number] [facility] Medicare Solutions Commercial Self [facility] REGIONAL CLAIMS O [id number] S [id number] [facility] MEDICARE COMPLET O [id number] S [id number] [facility] MEDICARE COMPLET O [id number] S [id number] Problems, Conditions, and Diagnoses Code Display Name Description Problem Type Effective Dates Data Source(s) [id number] Pressure ulcer of right foot stage 1 Pre ssure ulcer of right foot stage 1 Problem 09/27/2020 12:00:00 AM EST [facility] ([facility] [id number] 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 Problem 09/27/2020 12:00:00 AM EST [facility] ([facility] Pressure ulcer of other site, stage 1 Pressure u lcer of other site, stage 1 Problem 07/13/2020 12:00:00 AM EDT - 08/13/2020 12:00:00 AM ES T [facility] [id number] 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 Problem 07/13/2020 12:00:00 AM EDT - 08/13/2020 12:00:00 AM EST [facility] 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 BPH loc w urin obs/LUTS Problem 06/28/2020 12:00:00 AM EDT eCW1 ([facility]) Corns and callosities Corns and callosities Problem 04/05/2020 12:00:00 AM EDT [facility] ([facility] [id number] Onychomycosis Onychomycosis Problem 04/05/2020 12:00:00 AM EDT [facility] ([facility] 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 Problem 04/05/2020 12:00:00 AM EDT [facility] ([facility] [id number] Amputated big toe Amputated big toe Problem 04/05 12:00:00 AM EDT [facility] ([facility] [id number] Pain in limb Pain in limb Problem 04/05/2020 12:0 0:00 AM EDT - 07/13/2020 12:00:00 AM EDT [facility] ([facility] I48.91 Unspecified atrial fibrillation Unspecified atri al fibrillation Diagnosis 10/14/2020 09:38:02 AM [facility] E78.5 Hyperlipidemia, unspecified Hyperlipidemia, unspecifie d Diagnosis 08/15/2020 01:05:17 PM [facility] I10 Essential (primary) hypertension Essential (primary) h ypertension Diagnosis 08/15/2020 01:05:17 PM [facility] I48.0 Paroxysmal atrial fibrillation Paroxysmal atrial fibri llation Diagnosis 08/15/2020 01:05:17 PM [facility] I50.32 Chronic diastolic (congestive) heart caty lure Chronic diastolic (congestive) heart caty Diagnosis 08/15/2020 01:05:17 PM [facility] I25.10 Atherosclerotic heart diseas e of [place] coronary artery without angina pectoris Atherosclerotic heart disease of burns [place] Diagnosis 08/15/2020 01:05:17 PM [facility] I73.9 Peripheral vascular disease, unspecified Peripheral vascular disease, unspecified Diagnosis 05/16/2020 02:43:24 PM EDT [facility] E11.51 Type 2 diabetes mellitus wit h diabetic peripheral angiopathy without gangrene Type 2 diabetes mellitus with diabetic p Diagnosis 12/31/2019 02:10:17 PM EDT [facility] E03.9 Hypothyroidism, unspecified Hypothyroidism, unspecifie d Diagnosis 12/31/2019 02:10:17 PM EDT [facility] Surgeries/Procedures Procedure Description Date Indications Data Source(s) DEBRIDEMENT OPEN WOUND 20 SQ CM/< 09/27/2020 12:00:00 AM EST [facility] ([facility] uro PVR (Post Voiding Residual) Bladder Scan 0 12:00:00 AM EST eCW1 ([facility]) DEBRIDEMENT NAIL ANY METHOD 08/02/2020 12:00:00 AM EST [facility] ([facility] DEBRIDEMENT OPEN WOUND 20 SQ CM/< 07/19/2020 12:00:00 AM EST [facility] ([facility] DEBRIDEMENT OPEN WOUND 20 SQ CM/< 07/05/2020 12:00:00 AM EDT [facility] ([facility] DEBRIDEMENT NAIL ANY METHOD 05/31/2020 12:00:00 AM EDT [facility] ([facility] Diabetic Foot Exam 2020 12:00:00 AM EDT [facility] ([facility]) Diabetic Foot Exam 03/22/2020 12:00:00 AM EDT [facility] ([facility]) PARING/CUTTING BENIGN HYPERKERATOTIC LESION 1 03/22/20 12:00:00 AM EDT [facility] ([facility] DEBRIDEMENT NAIL ANY METHOD 03/22/2020 12:00:00 AM EDT [facility] ([facility] Diabetic Foot Exam 03/22/2020 12:00:00 AM EDT [facility] ([facility]) Diabetic Retinal Eye Exam 03/03/2020 12:00:00 AM EDT [facility] ([facility]) Results ID Date Data Source [id number] 10/07/2020 02:24:00 PM EST [facility] ([facility]) Name Value Range Interpretation Code Description Data Helena rce(s) Supporting Document(s) Thyrotropin [Units/volume] in Serum or Plasma by Detec tion limit <= 0.05 mIU/L 4.990 uIU/ML 0.358-3.740 [facility] ([facility] ) ID Date Data Source [id number] 10/07/2020 02:24:00 PM EST [facility] ([facility]) Name Value Range Interpretation Code Description Data Helena e(s) Supporting Document(s) Blood Urea Nitrogen 66 mg/dL 7-18 [facility] ([facility]) Glucose, Fasting 97 mg/dL 70-100 [facility] ([facility]) Creatinine For GFR 2.15 mg/dL 0.70-1.30 [facility] ([facility]) Potassium Serum 4.5 meq/L 3.5-5.1 [facility] ([facility]) Glomerular Filtration Rate 31.0 [facility] ([facility]) <content>Units are mL/min/1.73 m2</content>
<content></content>
<content>Chronic Kidney Disease Staging per NKF:</content>
<content></content>
<content>Stage I & II GFR >=60 Normal to Mildly Decreased</content>
<content>Stage III GFR 30- 59 Moderately Decreased</content>
<content>Stage IV GFR 15-29 Severely Decreased</content>
<content>Stage V GFR <15 Very Little GFR Left</content>
<content>ESRD GFR <15 on SUPERVISOR HYDROCHLORIC AREA</content>
<content></content> Sodium Level 141 meq/L 136-145 [facility] ([facility]) Chloride Level 105 meq/L 98-107 [facility] ([facility]) Anion Gap 10 meq/L 8-16 [facility] Carbon Dioxide Level 26 meq/L 21-32 [facility] ([facility]) Calcium Level 9.8 mg/dL 8.8-10.2 [facility] ([facility]) Ast/Sgot 33 U/L 7-37 [facility] Alt/SGPT 51 U/L 12-78 [facility] Bilirubin,Total 0.3 mg/dL 0.2-1.0 [facility] ([facility]) Alkaline Phosphatase 151 U/L 45-117 [facility] ([facility]) Total Protein 7.8 GM/DL 6.4-8.2 [facility] ([facility]) Albumin/Globulin Ratio 0.9 [facility] Albumin 3.7 GM/DL 3.2-5.2 [facility] ([facility]) ID Date Data Source [id number] 10/07/2020 02:13:00 PM EST [facility] ([facility]) Name Value Range Interpretation Code Description Data Helena rce(s) Supporting Document(s) Hemoglobin A1c/Hemoglobin.total in Blood 7.8 % [facility] Lab Result Notes: Pre-Diabetes 5.7 - 6.4 % Diabetes = or > 6.5% Glucose mean value [Mass/volume] in Blood Estimated fr om glycated hemoglobin 177 mg/dL 60-110 [facility] ID Date Data Source [id number] 10/07/2020 02:13:00 PM EST [facility] ([facility]) Name Value Range Interpretation Code Description Data Helena rce(s) Supporting Document(s) Leukocytes [#/volume] in Blood by Automated count 9.0 x10*3/UL 4.1-10 .9 [facility] Erythrocytes [#/volume] in Blood by Automated count 4.16 x10*6/UL 4.2 0-6.30 [facility] ([facility]) Hemoglobin [Mass/volume] in Blood 13.3 g/dL 12.0-18.0 [facility] Hematocrit [Volume Fraction] of Blood by Automated count 38.1 % 3 7.0-51.0 [facility] ([facility]) MCH 32.0 pg 26.0-32.0 [facility] ([facility]) MCV 91.6 fL 80.0-97.0 [facility] MCHC 34.9 g/dL 31.0-38.0 [facility] Erythrocyte distribution width [Ratio] by Automated count 13.7 % 11.6-13.7 [facility] ([facility]) Platelets [#/volume] in Blood by Automated count 134 x10*3/UL 140-440 [facility] ([facility]) MPV 9.9 FL 7.8-11.0 [facility] Lymph % 32.3 % 10.0-58.5 [facility] Lymph # 2.9 x10*3/UL 0.6-4.1 [facility] ([facility]) Neut % 60.2 % 37.0-92.0 [facility] Mid % 7.5 % 1.7-9.3 [facility] Mid # 0.7 x10*3/UL 0.1-0.6 [facility] ([facility]) Neut # 5.4 x10*3/UL 2.0-7.8 [facility] ([facility]) ID Date Data Source [id number] 07/07/2020 01:23:00 PM EDT [facility] Name Value Range Interpretation Code Description Data Helena rce(s) Supporting Document(s) Parathyrin.intact [Mass/volume] in Serum or Plasma 74.9 pg/mL 18.5-88 .0 [facility] ID Date Data Source [id number] 07/07/2020 01:22:00 PM EDT [facility] Name Value Range Interpretation Code Description Data Helena rce(s) Supporting Document(s) Urea nitrogen [Mass/volume] in Serum or Plasma 51 mg/dL 7-18 [facility] ([facility]) NOTE: BUN,CREAT VERIFED Glucose [Mass/volume] in Serum or Plasma 178 mg/dL 74-99 [facility] ([facility]) 100-125 mg/dL PRE-DIABETES/FASTING >126 mg/dL DIABETES/FASTING Potassium [Moles/volume] in Serum or Plasma 4.1 meq/L 3.5-5.1 [facility] Creatinine 2.0 mg/dL 0.6-1.3 [facility] ([facility] Sodium [Moles/volume] in Serum or Plasma 142 meq/L 136-145 [facility] ([facility]) Carbon dioxide, total [Moles/volume] in Serum or Plasma 31 meq/L 21 -32 [facility] ([facility]) Calcium [Mass/volume] in Serum or Plasma 9.5 mg/dL 8.5-10.1 [facility] ([facility]) Chloride [Moles/volume] in Serum or Plasma 105 meq/L 98-107 [facility] ([facility]) Aspartate aminotransferase [Enzymatic activity/volume] in Serum or Plasma 29 U/L 15-37 [facility] ([facility] ) Alkaline phosphatase isoenzyme [Units/volume] in Serum or Pl asma 117 mg/dL 46-116 [facility] ([facility]) Total Bilirubin 0.4 mg/dL 0.2-1.0 [facility] ([facility]) Albumin [Mass/volume] in Serum or Plasma 3.6 g/dL 3.4-5.0 [facility] ([facility]) Alanine aminotransferase [Enzymatic activity/volume] in Seru m or Plasma 41 U/L 12-78 [facility] ([facility]) Proteinase 3 Ab [Units/volume] in Serum 7.3 g/dL 6.4-8.2 [facility] ([facility]) A/G Ratio 0.97 CALC 1.00-1.90 [facility] ([facility]) Glomerular filtration rate/1.73 sq M pre dicted among non-blacks [Volume Rate/Area] in Serum or Plasma by Creatinine-based formula (MDRD) 32 mL/min [facility] ([facility]) Glomerular filtration rate/1.73 sq M pre dicted among blacks [Volume Rate/Area] in Serum or Plasma by Creatinine-based formula (MDRD) 38 mL/min [facility] ([facility]) <content>CHRONIC KIDNEY DISEASE STAGING PER NKF</content>
<content></content>
<content>STAGE I & II GFR >= 60 NORMAL TO MILDLY DECREASED</content>
<content>STAGE III GFR 30-59 MODERATELY DECREASED</content>
<content>STAGE IV GFR 15-29 SEVERELY DECREASED</content>
<content>STAGE V GFR <15 VERY LITTLE GFR LEFT</content>
<content>ESRD GFR <15 ON SUPERVISOR HYDROCHLORIC AREA</content>
<content></content> ID Date Data Source [id number] 07/07/2020 01:22:00 PM [facility] Name Value Range Interpretation Code Description Data Helena rce(s) Supporting Document(s) Hemoglobin A1c/Hemoglobin.total in Blood 7.9 % [facility] ([facility]) Lab Result Notes: Pre-Diabetes 5.7 - 6.4 % Diabetes = or > 6.5% Glucose mean value [Mass/volume] in Blood Estimated fr om glycated hemoglobin 180 mg/dL 60-110 [facility] ID Date Data Source [id number] 07/07/2020 01:22:00 PM EDT [facility] Name Value Range Interpretation Code Description Data Helena rce(s) Supporting Document(s) Leukocytes [#/volume] in Blood by Automated count 7.9 x10*3/UL 4.1-10 .9 [facility] ([facility]) Erythrocytes [#/volume] in Blood by Automated count 4.17 x10*6/UL 4.2 0-6.30 [facility] Hematocrit [Volume Fraction] of Blood by Automated count 38.6 % 3 7.0-51.0 [facility] Hemoglobin [Mass/volume] in Blood 13.4 g/dL 12.0-18.0 [facility] ([facility]) MCV 92.5 fL 80.0-97.0 [facility] MCHC 34.7 g/dL 31.0-38.0 [facility]) Erythrocyte distribution width [Ratio] by Automated count 13.8 % 11.6-13.7 [facility] ([facility]) MCH 32.1 pg 26.0-32.0 [facility] Lymph % 34.5 % 10.0-58.5 [facility] ([facility]) MPV 9.6 FL 7.8-11.0 [facility] ([facility]) Platelets [#/volume] in Blood by Automated count 145 x10*3/UL 140-440 [facility] ([facility]) Neut % 58.3 % 37.0-92.0 [facility] Mid % 7.2 % 1.7-9.3 [facility]) Lymph # 2.7 x10*3/UL 0.6-4.1 [facility] ([facility]) Neut # 4.6 x10*3/UL 2.0-7.8 [facility] ([facility]) Mid # 0.6 x10*3/UL 0.1-0.6 [facility] ([facility]) ID Date Data Source [id number] 06/29/2020 09:40:54 AM EDT W1 ([facility]) Name Value Range Interpretation Code Description Data Helena rce(s) Supporting Document(s) UA URINALYSIS [facility] ([facility]) ID Date Data Source [id number] 03/28/2020 02:11:00 PM EDT [facility] ([facility]) Name Value Range Interpretation Code Description Data Helena rce(s) Supporting Document(s) Urea nitrogen [Mass/volume] in Serum or Plasma 37 mg/dL 7-18 [facility] ([facility]) Glucose [Mass/volume] in Serum or Plasma 199 mg/dL 74-99 [facility] ([facility]) 100-125 mg/dL PRE-DIABETES/FASTING >126 mg/dL DIABETES/FASTING Creatinine 1.8 mg/dL 0.6-1.3 [facility] ([facility]) Chloride [Moles/volume] in Serum or Plasma 103 meq/L 98-107 [facility] ([facility]) Sodium [Moles/volume] in Serum or Plasma 142 meq/L 136-145 [facility] ([facility]) Potassium [Moles/volume] in Serum or Plasma 4.1 meq/L 3.5-5.1 [facility] ([facility]) Calcium [Mass/volume] in Serum or Plasma 9.5 mg/dL 8.5-10.1 [facility] ([facility]) Alkaline phosphatase isoenzyme [Units/volume] in Serum or Pl asma 139 mg/dL 46-116 [facility] ([facility]) Carbon dioxide, total [Moles/volume] in Serum or Plasma 29 meq/L 21 -32 [facility] ([facility]) Total Bilirubin 0.5 mg/dL 0.2-1.0 [facility] ([facility]) Aspartate aminotransferase [Enzymatic activity/volume] in Serum or Plasma 23 U/L 15-37 [facility] ([facility] ) Alanine aminotransferase [Enzymatic activity/volume] in Seru m or Plasma 35 U/L 12-78 [facility] ([facility]) Proteinase 3 Ab [Units/volume] in Serum 8.4 g/dL 6.4-8.2 [facility] ([facility]) NOTE: RESULT VERIFIED. Albumin [Mass/volume] in Serum or Plasma 3.5 g/dL 3.4-5.0 [facility] ([facility]) A/G Ratio 0.71 CALC 1.00-1.90 [facility]) Glomerular filtration rate/1.73 sq M pre dicted among blacks [Volume Rate/Area] in Serum or Plasma by Creatinine-based formula (MDRD) 43 mL/min [facility] <content>CHRONIC KIDNEY DISEASE STAGING PER NKF</content>
<content></content>
<content>STAGE I & II GFR >= 60 NORMAL TO MILDLY DECREASED</content>
<content>STAGE III GFR 30-59 MODERATELY DECREASED</content>
<content>STAGE IV GFR 15-29 SEVERELY DECREASED</content>
<content>STAGE V GFR <15 VERY LITTLE GFR LEFT</content>
<content>ESRD GFR <15 ON SUPERVISOR HYDROCHLORIC AREA</content>
<content></content> Glomerular filtration rate/1.73 sq M pre dicted among non-blacks [Volume Rate/Area] in Serum or Plasma by Creatinine-based formula (MDRD) 36 mL/min [facility] ID Date Data Source [id number] 03/28/2020 02:11:00 PM EDT [facility] Name Value Range Interpretation Code Description Data Helena rce(s) Supporting Document(s) Hemoglobin A1c/Hemoglobin.total in Blood 7.2 g/dL 4.8-5.6 [facility] Lab Result Notes: Pre-Diabetes 5.7 - 6.4 % Diabetes = or > 6.5% Glucose mean value [Mass/volume] in Blood Estimated fr om glycated hemoglobin 160 mg/dL 60-110 [facility] ID Date Data Source [id number] 03/28/2020 02:11:00 PM EDT [facility] Name Value Range Interpretation Code Description Data Helena rce(s) Supporting Document(s) Natriuretic peptide B [Mass/volume] in Serum or Plasma 118.0 pg/mL 0.0-100.0 [facility] ID Date Data Source [id number] 03/28/2020 02:11:00 PM EDT [facility] ([facility] Name Value Range Interpretation Code Description Data Helena rce(s) Supporting Document(s) Erythrocytes [#/volume] in Blood by Automated count 4.50 x10*6/UL 4.2 0-6.30 [facility] ([facility]) Leukocytes [#/volume] in Blood by Automated count 10.3 x10*3/UL 4.1-1 0.9 [facility] ([facility]) Hemoglobin [Mass/volume] in Blood 14.2 g/dL 12.0-18.0 [facility] ([facility]) MCH 31.6 pg 26.0-32.0 [facility] MCV 92.2 fL 80.0-97.0 [facility] Hematocrit [Volume Fraction] of Blood by Automated count 41.5 % 3 7.0-51.0 [facility] ([facility]) Platelets [#/volume] in Blood by Automated count 193 x10*3/UL 140-440 [facility] ([facility]) Erythrocyte distribution width [Ratio] by Automated count 12.8 % 11.6-13.7 [facility] ([facility]) MCHC 34.2 g/dL 31.0-38.0 [facility] ([facility] [facility]) MPV 8.9 FL 7.8-11.0 MED[facility] ([facility]) Lymph % 37.5 % 10.0-58.5 [facility] ([facility]) Mid % 9.2 % 1.7-9.3 MED[facility] ([facility]) Lymph # 3.8 x10*3/UL 0.6-4.1 MEDENT ([facility]) Mid # 1.0 x10*3/UL 0.1-0.6 MED[facility] ([facility]) Neut % 53.3 % 37.0-92.0 [facility] ([facility]) Neut # 5.5 x10*3/UL 2.0-7.8 MED[facility] ([facility]) ID Date Data Source [id number] 02/18/2020 11:16:00 AM EDT MEDENT ([facility]) Name Value Range Interpretation Code Description Data Helena rce(s) Supporting Document(s) Thyrotropin [Units/volume] in Serum or Plasma by Detec tion limit <= 0.05 mIU/L 4.77 uIU/mL 0.36-3.74 [facility] ([facility] ) ID Date Data Source [id number] 02/18/2020 11:16:00 AM EDT MEDENT ([facility]) Name Value Range Interpretation Code Description Data Helena rce(s) Supporting Document(s) Creatinine 1.9 mg/dL 0.6-1.3 MEDENT ([facility]) Glucose [Mass/volume] in Serum or Plasma 107 mg/dL 74-99 MED[facility] ([facility]) 100-125 mg/dL PRE-DIABETES/FASTING >126 mg/dL DIABETES/FASTING Urea nitrogen [Mass/volume] in Serum or Plasma 53 mg/dL 7-18 MEDENT ([facility]) Carbon dioxide, total [Moles/volume] in Serum or Plasma 31 meq/L 21 -32 MED[facility] ([facility]) Chloride [Moles/volume] in Serum or Plasma 103 meq/L 98-107 MED[facility] ([facility]) Sodium [Moles/volume] in Serum or Plasma 142 meq/L 136-145 MED[facility] ([facility]) Potassium [Moles/volume] in Serum or Plasma 4.1 meq/L 3.5-5.1 [facility] Glomerular filtration rate/1.73 sq M pre dicted among non-blacks [Volume Rate/Area] in Serum or Plasma by Creatinine-based formula (MDRD) 34 mL/min [facility] Calcium [Mass/volume] in Serum or Plasma 9.3 mg/dL 8.5-10.1 MEDENT ([facility]) Glomerular filtration rate/1.73 sq M pre dicted among blacks [Volume Rate/Area] in Serum or Plasma by Creatinine-based formula (MDRD) 41 mL/min [facility] <content>CHRONIC KIDNEY DISEASE STAGING PER NKF</content>
<content></content>
<content>STAGE I & II GFR >= 60 NORMAL TO MILDLY DECREASED</content>
<content>STAGE III GFR 30-59 MODERATELY DECREASED</content>
<content>STAGE IV GFR 15-29 SEVERELY DECREASED</content>
<content>STAGE V GFR <15 VERY LITTLE GFR LEFT</content>
<content>ESRD GFR <15 ON SUPERVISOR HYDROCHLORIC AREA</content>
<content></content> ID Date Data Source [id number] 02/18/2020 11:16:00 AM EDT [facility] Name Value Range Interpretation Code Description Data Helena rce(s) Supporting Document(s) Hemoglobin A1c/Hemoglobin.total in Blood 7.2 g/dL 4.8-5.6 [facility] ([facility]) Lab Result Notes: Pre-Diabetes 5.7 - 6.4 % Diabetes = or > 6.5% Glucose mean value [Mass/volume] in Blood Estimated fr om glycated hemoglobin 160 mg/dL 60-110 [facility] ) ID Date Data Source [id number] 02/18/2020 11:16:00 AM EDT MEDENT ([facility]) Name Value Range Interpretation Code Description Data Helena rce(s) Supporting Document(s) Natriuretic peptide B [Mass/volume] in Serum or Plasma 73.0 pg/mL 0.0 -100.0 MED[facility] ([facility]) ID Date Data Source [id number] 02/18/2020 11:16:00 AM EDT MEDENT ([facility]) Name Value Range Interpretation Code Description Data Helena rce(s) Supporting Document(s) Leukocytes [#/volume] in Blood by Automated count 9.6 x10*3/UL 4.1-10 .9 [facility] ([facility]) Erythrocytes [#/volume] in Blood by Automated count 4.44 x10*6/UL 4.2 0-6.30 [facility] ([facility]) MCH 31.5 pg 26.0-32.0 [facility] ([facility]) Hemoglobin [Mass/volume] in Blood 14.0 g/dL 12.0-18.0 [facility] ([facility]) MCV 91.8 fL 80.0-97.0 MEDENT ([facility]) Hematocrit [Volume Fraction] of Blood by Automated count 40.8 % 3 7.0-51.0 [facility] Platelets [#/volume] in Blood by Automated count 192 x10*3/UL 140-440 MED[facility] ([facility]) Erythrocyte distribution width [Ratio] by Automated count 13.0 % 11.6-13.7 [facility] ([facility]) MCHC 34.3 g/dL 31.0-38.0 [facility] ([facility]) Mid % 8.7 % 1.7-9.3 [facility] ([facility]) MPV 9.1 FL 7.8-11.0 [facility] ([facility]) Lymph % 32.3 % 10.0-58.5 MED[facility] ([facility]) Neut # 5.6 x10*3/UL 2.0-7.8 [facility] ([facility]) Mid # 0.9 x10*3/UL 0.1-0.6 [facility] ([facility]) Neut % 59.0 % 37.0-92.0 [facility] Lymph # 3.1 x10*3/UL 0.6-4.1 [facility] ([facility]) ID Date Data Source [id number] 10/14/2019 02:00:00 PM EST MED[facility] ([facility]) Name Value Range Interpretation Code Description Data Helena rce(s) Supporting Document(s) Creatinine 2.0 mg/dL 0.6-1.3 [facility] ([facility]) Glucose [Mass/volume] in Serum or Plasma 132 mg/dL 74-99 [facility] ([facility]) 100-125 mg/dL PRE-DIABETES/FASTING >126 mg/dL DIABETES/FASTING Urea nitrogen [Mass/volume] in Serum or Plasma 35 mg/dL 7-18 [facility] ([facility]) Potassium [Moles/volume] in Serum or Plasma 4.3 meq/L 3.5-5.1 [facility] ([facility]) Chloride [Moles/volume] in Serum or Plasma 102 meq/L 98-107 [facility] ([facility]) Carbon dioxide, total [Moles/volume] in Serum or Plasma 32 meq/L 21 -32 [facility] ([facility]) Sodium [Moles/volume] in Serum or Plasma 140 meq/L 136-145 [facility] ([facility]) Aspartate aminotransferase [Enzymatic activity/volume] in Serum or Plasma 24 U/L 15-37 [facility] ([facility] ) Total Bilirubin 0.4 mg/dL 0.2-1.0 [facility] ([facility]) Calcium [Mass/volume] in Serum or Plasma 9.7 mg/dL 8.5-10.1 [facility] ([facility]) Alkaline phosphatase isoenzyme [Units/volume] in Serum or Pl asma 115 mg/dL 46-116 [facility] ([facility]) Alanine aminotransferase [Enzymatic activity/volume] in Seru m or Plasma 37 U/L 12-78 [facility] Albumin [Mass/volume] in Serum or Plasma 3.5 g/dL 3.4-5.0 [facility] ([facility]) Proteinase 3 Ab [Units/volume] in Serum 8.2 g/dL 6.4-8.2 [facility] ([facility]) A/G Ratio 0.74 CALC 1.00-1.90 [facility] Glomerular filtration rate/1.73 sq M pre dicted among non-blacks [Volume Rate/Area] in Serum or Plasma by Creatinine-based formula (MDRD) 32 mL/min [facility] Glomerular filtration rate/1.73 sq M pre dicted among blacks [Volume Rate/Area] in Serum or Plasma by Creatinine-based formula (MDRD) 38 mL/min [facility] <content>CHRONIC KIDNEY DISEASE STAGING PER NKF</content>
<content></content>
<content>STAGE I & II GFR >= 60 NORMAL TO MILDLY DECREASED</content>
<content>STAGE III GFR 30-59 MODERATELY DECREASED</content>
<content>STAGE IV GFR 15-29 SEVERELY DECREASED</content>
<content>STAGE V GFR <15 VERY LITTLE GFR LEFT</content>
<content>ESRD GFR <15 ON SUPERVISOR HYDROCHLORIC AREA</content>
<content></content> ID Date Data Source [id number] 10/14/2019 02:00:00 PM EST MED[facility] ([facility]) Name Value Range Interpretation Code Description Data Helena rce(s) Supporting Document(s) Hemoglobin A1c/Hemoglobin.total in Blood 7.8 g/dL 4.8-5.6 [facility] Lab Result Notes: Pre-Diabetes 5.7 - 6.4 % Diabetes = or > 6.5% Glucose mean value [Mass/volume] in Blood Estimated fr om glycated hemoglobin 177 mg/dL 60-110 [facility] ID Date Data Source [id number] 10/14/2019 02:00:00 PM EST [facility] ([facility]) Name Value Range Interpretation Code Description Data Helena rce(s) Supporting Document(s) Natriuretic peptide B [Mass/volume] in Serum or Plasma 72.5 pg/mL 0.0 -100.0 [facility] ([facility]) ID Date Data Source [id number] 10/14/2019 02:00:00 PM EST [facility] ([facility]) Name Value Range Interpretation Code Description Data Helena rce(s) Supporting Document(s) Leukocytes [#/volume] in Blood by Automated count 9.4 x10*3/UL 4.1-10 .9 [facility] ([facility]) Hemoglobin [Mass/volume] in Blood 13.4 g/dL 12.0-18.0 [facility] ([facility]) Hematocrit [Volume Fraction] of Blood by Automated count 39.6 % 3 7.0-51.0 [facility] ([facility]) Erythrocytes [#/volume] in Blood by Automated count 4.29 x10*6/UL 4.2 0-6.30 [facility] ([facility]) MCH 31.4 pg 26.0-32.0 [facility] ([facility]) MCV 92.5 fL 80.0-97.0 [facility] MCHC 33.9 g/dL 31.0-38.0 [facility] ([facility]) Erythrocyte distribution width [Ratio] by Automated count 13.1 % 11.6-13.7 [facility] ([facility]) MPV 9.1 FL 7.8-11.0 [facility] ([facility]) Platelets [#/volume] in Blood by Automated count 178 x10*3/UL 140-440 [facility] ([facility]) Lymph % 35.6 % 10.0-58.5 [facility] Mid % 6.7 % 1.7-9.3 [facility] Neut % 57.7 % 37.0-92.0 [facility] Mid # 0.7 x10*3/UL 0.1-0.6 [facility] ([facility]) Lymph # 3.3 x10*3/UL 0.6-4.1 [facility] ([facility]) Neut # 5.4 x10*3/UL 2.0-7.8 [facility] ([facility]) ID Date Data Source [id number] 09/24/2019 05:17:44 PM EST [facility] Name Value Range Interpretation Code Description Data Helena rce(s) Supporting Document(s) &PDF [facility] LVVOTe1zObQJNgRf33/GQQasKHHli2SuTWpsHGg5UXjiNULsH5ZplTjrLS9ULGbRE5wCWMjIAX1aDuXe oRX [file] ICAgICAgICAgICAgICAgICAgICAgICAgICAgICAgICAgICAgICAgICAgICAgICAgICAgICAgICAgICAg BBTtSEMmDUGmLXZiARLyEYHeZIAcRILaOL1PLFBoSG AgICAgICAgICAgICAgICAgICAgICAgICAgICAgICAgICAgICAgICAgICAgICAgICAgICAgICAgICAgIC WdHBBdHZWiNEMaVDWqMQScVYTcZYQpDFTeJBMlCGCqFRQvIF3EAKEqKGDhDBCiRMJkFJCfQXHvPZWlON AgICAgICAgICAgICAgICAgICAgICAgICAgICAgICAg HIKtBQHmFPKeDJZrNSZxTQXjCZRzRTGtBIWmGNIvJWPiIRJbESHmFWCjSBQlDD8HWQUuPRPeKBOxDARm ICAgICAgICAgICAgICAgICAgICAgICAgICAgICAgICAgICAgICAgICAgICAgICAgICAgICAgICAgICAg MZItIKPcSTHqNUNhZCCuTPDgLFMzJLGqVBKsFI2RMZ AgICAgICAgICAgICAgICAgICAgICAgICAgICAgICAgICAgICAgICAgICAgICAgICAgICAgICAgICAgIC JbJKGoBOSfHXQvYZJkZXFvGFVrHLIxQNXdBVZuJDUbCYXbFEOxVA7ZAEMfYGOnXEJmDUSpONQhJWOrLD AgICAgICAgICAgICAgICAgICAgICAgICAgICAgICAg RIJoYZCmPTYvOFNmUQEnBUCgTIXrTNPdHKNlZNNeVZTlWGDuTGOkSBOuDSUdWGKxIB6BMWOvLGXiGBDg ICAgICAgICAgICAgICAgICAgICAgICAgICAgICAgICAgICAgICAgICAgICAgICAgICAgICAgICAgICAg ICAgICAgICAgICAgICAgICAgICAgICAgICAgICAgIA 0KICAgICAgICAgICAgICAgICAgICAgICAgICAgICAgICAgICAgICAgICAgICAgICAgICAgICAgICAgIC HdCRLwZSWdUNElPJWiUQOlOLUlTRItNMLbQBHwZTXiHSVvREYiYNYlFM6JRYHyRPPbNXPnYTQaLIHhZO AgICAgICAgICAgICAgICAgICAgICAgICAgICAgICAg DGLkTFUnJDRnUUBkBOCdUQLgJADtLJQcJKIkEUYaMHUoBGNzSAHkSZZeNLXeHDWcPAFuXI0VLCGoCEQl ICAgICAgICAgICAgICAgICAgICAgICAgICAgICAgICAgICAgICAgICAgICAgICAgICAgICAgICAgICAg ICAgICAgICAgICAgICAgICAgICAgICAgICAgICAgIC FiAZ9XFG47cUYej8S2BVGdCD7whvq/Av6KHMpuszGeyVJkBL0YJkVyKM5bcu3SXfZoVZ5mcp5FYJnTRu HlI1B7uFUoWSDyGXFVFiZnO48qSXmnHd56WNnhHALzYrHiUIe1Qx0GOyHbP6ftFAKkGvZ3IBZhKbG2YG QiDqKrHSjpPL2Vp2ZelNVbQSy+Wv4AFN7re9KeFNss IBWbZJ8iwq9RRXsNRnCyF0M7tUEnQ3M5BLbfCv1KCURtNBQaDJUjVJTJXRvwNI3CGA8byxW4SO2QiFWf ZMHbYGSndNUlJWu3U91dzPBtLZeoAU1HAIH+Issac+Hh5ZOCPrXGIoTVLzQiJwNNKKAzLpJ52viNAjZMAi QWS2MRLgZo4ARVVwT4JvruTzfYbwbeTwWAHlCBOQVF 0FEDjnanMqwGEtaDzoPH44eBerMW9TCs1JXnPyRH4exo5GlTKpEh9CWVMyWT5IVGUpGPIcFJYeKLB9IF UpZyDzJPhlYDLiGJBaTDT0OMIqZNOoWO6IBoFpNZIrBQD4WgzeSFLlEXQyfr5KCFEnUCGnPxG4CSVgYX AiNTOuYSxjPACoMQYiAHksHBBcBNLnQH9WSaVeXARm ODTcVBPpAUPjXDYqup0GQKMpEICeXoI0WDZtVEZeULNyQDcwJKDmRFLtBhT3QFRzPIWoAQ1GWmXsGWZq ECS6LGOaZXMzRVXwml7BVXRzEIUtQYC3TKEpZBThUNNoURqnXHKiUAB5DCD4AOGfIUViSD0PXaYiBPUh QNZ9THOePNTsOFKaei0XRWXxUGNwCLmrBLFjGFDdUW FiTUmaHUOxZWB7SHCkBOJdCMRtIH3GTtKuWSGvQWYvVUZeMXPjZBIdls7AZZFhFAQiVPw1ZjRkHRBzAX QuFAzaFUVmNNH5JEZ2OHWrUEWyMV7UQhAjDOSxEXEdOrAlUWXsTFYhwx5QKRQmDQQuBwW0GEDpBOBnYE PnCGk2dhNdaQNgNMo4SP6SI4CkxkJyRPnYMu1Qh484 NAJ3LCNhWf3TP7zfXs5hXKYsYSFFRd9ZEZq1SIWcIDsxBLAvNRxfTou5MXdiHnUkWZGhDTLtEIa7W8M+ CXl4R4F8L3GqHCNlBLT3OSU1SJM9DJL7FcF1CiQ4TZxnZr3jVBDXJt5+PPlmkIVfjXicULCGGzA6MFVi UHmpSMFJFu5P ID Date Data Source [id number] 09/22/2019 12:00:00 AM EST [facility] Salcido Np Patient Name: KING [id number] [facility] Date of : [address] [address] Date of Exam: 09/22/2019#: fax: [phone] EXAM: CHEST (2 VIEW) X-RAYCLINICAL INFORMATION: Cough.Two views.Comparison 08/18/19.There is bibasilar fibrotic change which appears stable. No new infiltrateis seen. Heart does not appear to be significantly enlarged. Multiplesternal wires and mediastinal clips are present as well as a loop recorder. Mediastinal silhouette is unchanged. There are degenerative changes ofthe spine.IMPRESSION:Stable chronic findings without evidence of acute infiltrate.ANASTASIA Nieves/Franca you for referring KING PLUMMER to our office. Electronically Signed - UZAIR BRADLEY MD 09/23/19 9:37 Name Value Range Interpretation Code Description Data Helena rce(s) Supporting Document(s) ID Date Data Source [id number] 08/26/2019 02:49:00 PM EST [facility] ([facility]) Name Value Range Interpretation Code Description Data Helena rce(s) Supporting Document(s) Leukocytes [#/volume] in Blood by Automated count 12.6 x10*3/UL 4.1-1 0.9 [facility] ([facility]) Erythrocytes [#/volume] in Blood by Automated count 4.31 x10*6/UL 4.2 0-6.30 [facility] ([facility]) Hemoglobin [Mass/volume] in Blood 13.4 g/dL 12.0-18.0 [facility] ([facility]) Hematocrit [Volume Fraction] of Blood by Automated count 39.9 % 3 7.0-51.0 [facility] ([facility]) MCV 92.4 fL 80.0-97.0 [facility]) MCH 31.2 pg 26.0-32.0 [facility]) MCHC 33.7 g/dL 31.0-38.0 [facility]) Erythrocyte distribution width [Ratio] by Automated count 12.6 % 11.6-13.7 [facility] ([facility]) Platelets [#/volume] in Blood by Automated count 337 x10*3/UL 140-440 [facility] ([facility]) MPV 8.2 FL 7.8-11.0 [facility]) Lymph % 25.9 % 10.0-58.5 [facility]) Mid % 7.6 % 1.7-9.3 [facility]) Mid # 1.0 x10*3/UL 0.1-0.6 [facility] ([facility]) Neut % 66.5 % 37.0-92.0 [facility]) Lymph # 3.2 x10*3/UL 0.6-4.1 [facility] ([facility]) Neut # 8.4 x10*3/UL 2.0-7.8 [facility] ([facility]) Procedure Social History Code Duration Value Status Description Data Source(s ) Smoking 09/01/2020 12:00:00 AM EST Never Smoker completed Never S rosaliaker eCW1 ([facility]) Smoking 06/28/2020 12:00:00 AM EDT Never Smoker completed Never S emmett eCW1 ([facility]) Alcohol intake 05/12/2020 12:00:00 AM EDT No completed [facility] Cigarettes smoked current (pack per day) - Reported 05/12/20 12:00:00 AM EDT UNK completed [facility] Smoking 05/12/2020 12:00:00 AM EDT Former smoker completed Former smoker [facility] Vital Signs ID Date Data Source UNK Name Value Range Interpretation Code Description Data Source(s) Body weight 197.00 [lb_av] 197.00 [lb_av] MEDEN T ([facility]) Heart rate 86 /min 86 /min MED[facility] ([facility]) Diastolic blood pressure 62 mm[Hg] 62 mm[Hg] [facility] ([facility]) Systolic blood pressure 100 mm[Hg] 100 mm[Hg] M EDENT ([facility]) Diastolic blood pressure 64 mm[Hg] 64 mm[Hg] eCW1 ([facility]) Systolic blood pressure 130 mm[Hg] 130 mm[Hg] e CW1 ([facility]) Body temperature 99.3 [degF] 99.3 [degF] eCW1 ( [facility]) Respiratory rate 18 /min 18 /min eCW1 ([facility]) Heart rate 78 /min 78 /min eCW1 ([facility]) Body mass index (BMI) [Ratio] 27.98 kg/m2 27.98 kg/m2 W1 ([facility]) Body height 70 [in_i] 70 [in_i] eCW1 ([facility]) Body weight 195 [lb_av] 195 [lb_av] eCW1 ([facility]) Body mass index (BMI) [Ratio] 29.39 kg/m2 29.39 kg/m2 [facility] Body weight 90.266 kg 90.266 kg [facility] Body height 175.3 cm 175.3 cm [facility] Respiratory rate 16 /min 16 /min [facility] Diastolic blood pressure 62 mm[Hg] 62 mm[Hg] [facility] Systolic blood pressure 104 mm[Hg] 104 mm[Hg] [facility] Body mass index (BMI) [Ratio] 28.7 kg/m2 28.7 k g/m2 [facility] ([facility]) Body weight 194.25 [lb_av] 194.25 [lb_av] MEDEN T ([facility]) Body height 69 [in_i] 69 [in_i] MED[facility] ([facility]) 5'9" Diastolic blood pressure 60 mm[Hg] 60 mm[Hg] [facility] ([facility]) Systolic blood pressure 112 mm[Hg] 112 mm[Hg] M EDENT ([facility]) Diastolic blood pressure 78 mm[Hg] 78 mm[Hg] eCW1 ([facility]) Systolic blood pressure 145 mm[Hg] 145 mm[Hg] e CW1 ([facility]) Body temperature 97.5 [degF] 97.5 [degF] eCW1 ( [facility]) Respiratory rate 18 /min 18 /min eCW1 ([facility]) Heart rate 62 /min 62 /min eCW1 ([facility]) Body mass index (BMI) [Ratio] 27.89 kg/m2 27.89 kg/m2 eCW1 ([facility]) Body height 70 [in_i] 70 [in_i] eCW1 ([facility]) Body weight 194.4 [lb_av] 194.4 [lb_av] eCW1 ([facility] includes the [facility]) Body mass index (BMI) [Ratio] 27.9 kg/m2 27.9 k g/m2 [facility] ([facility]) Body weight 189.00 [lb_av] 189.00 [lb_av] MEDEN T ([facility]) Body height 69 [in_i] 69 [in_i] MED[facility] ([facility]) 5'9" Heart rate 80 /min 80 /min MED[facility] ([facility]) Diastolic blood pressure 64 mm[Hg] 64 mm[Hg] MED[facility] ([facility]) Systolic blood pressure 108 mm[Hg] 108 mm[Hg] EDENT ([facility]) Body mass index (BMI) [Ratio] 27.2 kg/m2 27.2 k g/m2 MED[facility] ([facility] Heart rate 80 /min 80 /min [facility] ([facility] Diastolic blood pressure 64 mm[Hg] 64 mm[Hg] [facility] ([facility] Systolic blood pressure 100 mm[Hg] 100 mm[Hg] M EDENT ([facility] Body weight 184.00 [lb_av] 184.00 [lb_av] MEDEN T ([facility] Body height 69 [in_i] 69 [in_i] [facility] ([facility] 5'9" Body mass index (BMI) [Ratio] 28.4 kg/m2 28.4 k g/m2 [facility] Body weight 192.00 [lb_av] 192.00 [lb_av] MEDEN T ([facility]) Body height 69 [in_i] 69 [in_i] MED[facility] ([facility]) 5'9" Heart rate 80 /min 80 /min [facility] Diastolic blood pressure 64 mm[Hg] 64 mm[Hg] [facility] ([facility]) Systolic blood pressure 100 mm[Hg] 100 mm[Hg] [facility] ([facility]) Body mass index (BMI) [Ratio] 28.6 kg/m2 28.6 k g/m2 [facility] ([facility]) Body weight 194.00 [lb_av] 194.00 [lb_av] MEDEN T ([facility]) Body height 69 [in_i] 69 [in_i] [facility] ([facility]) 5'9" Heart rate 78 /min 78 /min [facility] ([facility]) Diastolic blood pressure 62 mm[Hg] 62 mm[Hg] [facility] ([facility]) Systolic blood pressure 100 mm[Hg] 100 mm[Hg] [facility] ([facility]) Body mass index (BMI) [Ratio] 27.5 kg/m2 27.5 k g/m2 [facility] ([facility]) Oxygen saturation in Arterial blood by Pulse oximetry --post exerci se 96 % 96 % [facility] ([facility]) RM Air Body weight 186.25 [lb_av] 186.25 [lb_av] MEDEN T ([facility]) Body height 69 [in_i] 69 [in_i] [facility] ([facility]) 5'9" Body temperature 97.2 [degF] 97.2 [degF] [facility] ([facility]) Oral Heart rate 68 /min 68 /min MED[facility] ([facility]) Diastolic blood pressure 66 mm[Hg] 66 mm[Hg] [facility] ([facility]) RT Arm Systolic blood pressure 108 mm[Hg] 108 mm[Hg] M EDENT ([facility]) RT Arm Patient Treatment Plan of Care Planned Activity Planned Date Details Description Data Source (s) Finasteride 5 MG Oral Tablet 06/28/2020 12:00:00 AM EDT [facility] Finasteride 5 MG Oral Tablet 06/28/2020 12:00:00 AM EDT [facility] ([facility]) Metoprolol Tartrate 50 MG Oral Tablet 05/16/2020 12:00:00 AM EDT [facility] pantoprazole 40 MG Delayed Release Oral Tablet 05/13/2020 12:00:00 AM EDT [facility] apixaban 2.5 MG Oral Tablet [Eliquis] 04/19/2020 12:00:00 AM EDT [facility] KLOR-CON M20 20 MEQ tablet 03/28/2020 12:00:00 AM EDT [facility] Carboxymethylcellulose Sodium 5 MG/ML Ophthalmic Solut ion 03/16/2020 12:00:00 AM EDT [facility] pantoprazole 40 MG Delayed Release Oral Tablet 10/26/2019 12:00:00 AM EST [facility] apixaban 2.5 MG Oral Tablet 10/26/2019 12:00:00 AM EST [facility] Potassium Chloride 10 MEQ Extended Release Oral Tablet 11/21/2018 12:00:00 AM EST [facility]
[2020-10-20] MEDS ORDERED: GLUCOSE 4GM CHEW TABLET PO PRN (22:15)
[2020-10-20] MEDS ORDERED: DEXTROSE 50% 50 ML SYRINGE IV PRN (22:15)
[2020-10-20] MEDS ORDERED: GLUCAGON INJ 1MG VIAL SC PRN (22:15)
[2020-10-20 22:31] LABS: SOURCE, BODY FLUID GLUCOSE LFT KNEE
[2020-10-20] MEDS ORDERED: VITA200038 PO (22:31)
[2020-10-20] MEDS ORDERED: METO1TAB87 PO (22:31)
[2020-10-20] MEDS ORDERED: REFR0.1D OU (22:31)
[2020-10-20] MEDS ORDERED: SYNT75TA PO (22:31)
[2020-10-20] MEDS ORDERED: INSUHUMDS SC (22:31)
[2020-10-20 22:50] VITALS: BP 131/74
[2020-10-20 22:52] LABS: APPEARANCE, URINE CLEAR (CLEAR); BACTERIA, URINE AUTO NEGATIVE (NEGATIVE); BILIRUBIN, URINE AUTO NEGATIVE (NEGATIVE); BLOOD, URINE BLOOD NEGATIVE (NEGATIVE); COLOR, URINE YELLOW (YELLOW); GLUCOSE, URINE (UA) AUTO NEGATIVE (NEGATIVE); KETONE, URINE AUTO NEGATIVE (NEGATIVE); LEUKOCYTE ESTERASE, URINE AUTO NEGATIVE (NEGATIVE); NITRITE, URINE AUTO NEGATIVE (NEGATIVE); PROTEIN, URINE AUTO NEGATIVE (NEGATIVE); RBC, URINE AUTO 0 /HPF (0-3); SQUAMOUS EPITHELIAL CELL UR AU 0 /HPF (0-6); UROBILINOGEN, URINE AUTO 0.2 mg/dL (0.0-2.0); WBC, URINE AUTO 0 /HPF (0-3)
[2020-10-20] MEDS: NS 1,000 ML IV SCH (23:11)
[2020-10-20 23:15] LABS: CREATININE,RANDOM URINE 53.8 MG/DL; UREA NITROGEN RANDOM URINE 534 MG/DL
--- NOTE | 2020-10-20 23:18 | HPEPDOC ---
[facility] Medical History & Physical Date of Admission Oct 20, 2020 Date of Service: Oct 20, 2020 Attending Physician: ABRAN HERNANDEZ MD History and Physical CHIEF COMPLAINT: Left knee pain HISTORY OF PRESENT ILLNESS: Is a 89-year-old male with past medical history significant for hypertension, diabetes mellitus type 2, CAD with quadruple bypass, Idiopathic pulmonary fibrosis, and stroke who presented to the [facility] emergency department with complaint of left knee pain. Patient stated that a few days ago he noticed some redness and swelling on his knee. He stated that it was only mildly discomforting. He stated that over the last couple days he had worsening pain in his left knee as well as difficulty with ambulation due to the pain. He denies any fevers, chills, nausea, vomiting. Denies any trauma to the knee. He denies any recent procedures to the knee as well. On presentation to the emergency department the patient was vitally stable. An x-ray of the knee was obtained which demonstrated diffuse osteopenia vascular calcifications as well as prepatellar soft tissue swelling but no acute bony abnormality. Vascular ultrasound was also obtained to the ED which did not demon strate any DVT. With a surgeon, Dr. Elizabeth was contacted to the emergency department and saw the patient. Aspiration of the knee was performed to rule out septic arthritis. Synovial fluid white blood cell count was only 350. Hospitalist service was then consulted for further evaluation management of the patient's left knee cellulitis. PAST MEDICAL HISTORY: 1. Hypertension. 2.. Diabetes mellitus type 2. 3. Chronic kidney disease dates IIIB. 4. Congestive heart failure. Unclear whether diastolic versus systolic. No echocardiogram on record. 5. Coronary artery disease with history of quadruple bypass. 6. History of stroke 7. Idiopathic pulmonary fibrosis. 8. Benign prostatic hyperplasia 9. Atrial fibrillation on Eliquis PAST SURGICAL HISTORY: 1. Quadruple bypass. 2. Right toe amputation. SOCIAL HISTORY: Patient was at home with his daughter who helps care for him. He had a total is now without a cane or walker. Denies any falls in the past year. He is a former smoker. He quit approximately 20 years ago. At the time he smoked 1-1/2 packs per day. Patient denies any alcohol use currently. He states that he was a heavy alcohol user. He quit alcohol approximately 25 years ago. He denies any history of IV or illicit drug use. FAMILY HISTORY: Patient's father and mother both of coronary artery disease. His mother also had diabetes. ALLERGIES: Please see below. REVIEW OF SYSTEMS: CONSTITUTIONAL: Denies any fevers, chills, unintentional weight loss or weight gain. Denies any night sweats.. HEENT: Denies any headaches, change in vision. Denies any dysphagia or odynophagia.. CARDIOVASCULAR: Denies any chest pain, palpitations or feelings of the heart racing.. RESPIRATORY: Denies any shortness of breath. Denies any cough or wheezing. Denies any hemoptysis.. GASTROINTESTINAL: Abdominal pain. Denies any nausea, vomiting, diarrhea or constipation.. GENITOURINARY: Denies any dysuria or increased frequency. SKIN:. Admits to area of redness on his left knee MUSCULOSKELETAL:. Admits to left knee pain, particularly with flexion and extension.. NEUROLOGICAL: Denies any changes in gait from his baseline. Denies any changes in speech or vision. Denies any weakness. PSYCHIATRIC: Denies any history of depression or anxiety. ENDOCRINE:. Denies any heat intolerance or cold intolerance. Admits to history of diabetes mellitus type 2 HEMATOLOGIC/LYMPHATIC: Denies any easy bruising or bleeding. Denies any history of DVT or pulmonary embolism.. HOME MEDICATIONS: Please see below. PHYSICAL EXAMINATION: VITAL SIGNS: Temperature 96.2, pulse, 84, respiratory rate. 15, blood pressure 120/74, pulse oximetry 97 % on room air. GENERAL APPEARANCE:. Patient is awake, alert, oriented. He does not appear in acute distress. He's lying stretcher comfortably.. HEENT: Atraumatic, normocephalic. Eyes are nonicteric. Trachea is midline. Mucous membranes are pink and moist.. CARDIOVASCULAR: Normal S1, S2. Regular rate and rhythm. There is a 2/6 systolic ejection murmur. No clicks or rubs LUNGS: Fine Velcro like crackles throughout, mostly in the bases. No wheezing. Symmetric chest expansion. No rhonchi. Good respiratory effort. ABDOMEN:. Soft nondistended, nontender. Normoactive bowel sounds throughout. MUSCULOSKELETAL: Left knee swelling with area of erythema surrounding and extending over the patellar region. There is no palpable effusion. The skin is warm to the touch. There is normal range of motion. EXTREMITIES: No edema. Full equal pulses in bilateral upper and lower extremities. Left knee swelling as stated above. NEUROLOGICAL: No focal neurological deficits PSYCHIATRIC: Mood And affect appear appropriate. LABORATORY DATA: See below. IMAGING: PROCEDURE INFORMATION: Exam: US Duplex Left Lower Extremity Veins, Limited Exam date and time: 10/20/2020 4:32 PM Age: 89 years old Clinical indication: Pain; Leg, lower; Left; Additional info: R/O dvt lle TECHNIQUE: Imaging protocol: Real-time Duplex ultrasound of the Left Lower Extremity with 2-D qiu scale, color Doppler flow and spectral waveform analysis with image documentation. Limited exam focused on the left lower extremity veins. COMPARISON: No relevant prior studies available. FINDINGS: Left deep veins: Unremarkable. The common femoral, femoral, popliteal and posterior tibial veins are patent without thrombus. Normal compressibility, augmentation response and Doppler waveforms. Left superficial veins: Unremarkable. Saphenofemoral junction is patent without thrombus. Soft tissues: Unremarkable. IMPRESSION: No sonographic evidence of deep vein thrombosis. Electronically signed by: Philip Hackett On 10/20/2020 17:16:43 PM INDICATION: Left knee pain, red/hot swollen. COMPARISON: None. TECHNIQUE: Five views. FINDINGS: Five views of the left knee demonstrate prepatellar soft tissue swelling. Vascular calcifications noted. There is diffuse osteopenia. Mild chondrocalcinosis. No fracture is seen. No evidence of joint effusion.. . No opaque foreign body noted. IMPRESSION: Diffuse osteopenia and vascular calcification. Prepatellar soft tissue swelling. No acute bony abnormality.. <Electronically signed by Jorge Pagan > 10/20/20 9630 MICROBIOLOGY: Please see below. ASSESSMENT: Patient is an 89-year-old male with a past medical history signific ant for hypertension, coronary artery disease status post quadruple bypass, CHF of unclassified type atrial fibrillation who presented to the [facility] emergency department with complaint of left knee swelling and pain. . PLAN: 1. Left knee pain, likely secondary to a partial cellulitis. -Patient has left knee pain and swelling. X-ray obtained did show some soft tissue edema. Orthopedic surgery has aspirated the joint. Synovial fluid analysis demonstrated 350 white blood cells. Suggesting it is less likely to be a joint infection. Area is erythematous and warm. Differential includes supervision cellulitis versus inflammatory condition. No current indication for surgical intervention -Will start empiric antibiotics with vancomycin and Zosyn. Can follow up with MRSA PCR and de-escalate as necessary. -Tylenol for pain. -Will trend CRP 2. Acute kidney injury in the setting of chronic disease -Patient presenting with a slightly elevated creatinine. . He is on diuretics at home. He does appear little slightly dry. States he does have a history of CHF, although there is no echocardiogram in the chart. -Will give gentle hydration overnight to see if kidney function improves. Will hold nephrotoxic agents for now and check creatinine -UA is pending 3. Atrial fibrillation -Patient states that he is unsure of the exact medical history. he is currently in sinus rhythm. He is on metoprolol and Eliquis. -We'll continue renally dosed Eliquis and metoprolol. 4. Congestive heart failure. Patient states he has a history of CHF. However, he is unsure what type CHF. He has. There is no echocardiogram available in our EMR. He is on spironolactone and torsemide outpatient. Currently holding due to patient acute kidney injury 5. Diabetes mellitus type 2 -Will reduce his dose of Levemir while inpatient. Titrate up as necessary. -Sliding scale coverage before meals, at bedtime next 6. Benign prostatic hyperplasia. . Will continue patient's home medications including Flomax and finasteride. 7. ASCVD . Will continue patient's home medications including simvastatin and cilostazol. Currently holding his spironolactone. 8. Gastroesophageal reflux disease. . Will continue his Protonix. 9. Hypothyroidism. Continue levothyroxine. 10. DVT prophylaxis Patient is currently on Eliquis Vital Signs Vital Signs Date Time Temp Pulse Resp B/P (MAP) Pulse Ox O2 Delivery O2 Flow Rate FiO2 10/20/20 21:15 96.2 84 15 120/74 (89) 97 Room Air Laboratory Data Labs 24H Laboratory Tests 2 10/20/20 16:23: Immature Granulocyte % (Auto) 0.4, Neutrophils (%) (Auto) 56.1, Lymphocytes (%) (Auto) 23.9L, Monocytes (%) (Auto) 19.1H, Eosinophils (%) (Auto) 0.3, Basophils (%) (Auto) 0.2, Neutrophils # (Auto) 7.0, Lymphocytes # (Auto) 3.0, Monocytes # (Auto) 2.4H, Eosinophils # (Auto) 0.0, Basophils # (Auto) 0.0, Nucleated Red Blood Cells % (auto) 0.0, Erythrocyte Sedimentation Rate 67H, Anion Gap 11, Glomerular Filtration Rate 25.3L, Calcium Level 9.5, C-Reactive Protein, Quantitative 6.43H 10/20/20 16:24: Uric Acid 9.0H 10/20/20 18:35: Lactic Acid Level 1.3, Coronavirus (COVID-19)(PCR) NEGATIVE, Influenza Type A (RT-PCR) NEGATIVE, Influenza Type B (RT-PCR) NEGATIVE, Respiratory Syncytial Virus (PCR) NEGATIVE 10/20/20 19:43: Bedside Glucose (Misc Panel) 144H 10/20/20 20:31: Body Fluid Source LFT KNEE, Body Fluid WBC (Auto) 350H, Body Fluid RBC (Auto) 41, Body Fluid Mononuclear Cells % Auto 70.5H, Fluid Polymorphonuclear Cell % Auto 29.5H, Body Fluid Crystals NONE SEEN, Body Fluid Crystal Source LFT KNEE, Body Fluid Uric Acid , Body Fluid Uric Acid Source LFT KNEE, Body Fluid Rheumatoid Factor Screen , Body Fluid Rheumatoid Factor Source LFT KNEE, Synovial Fluid Source LFT KNEE, Synovial Fluid Color PINK, Synovial Fluid Appearance TURBID, Synovial Fluid Mucin Clot CBC/BMP Laboratory Tests 10/20/20 16:23 Microbiology Microbiology 10/20/20 Blood Culture, Received Pending 10/20/20 Blood Culture, Received Pending Home Medications Scheduled Apixaban (Eliquis) 2.5 Mg Tab, 2.5 MG PO BID Cholecalciferol (Vitamin D3) (Vitamin D3) 50 Mcg Tablet, 50 MCG PO DAILY TAKES AT LUNCHTIME Cilostazol (Cilostazol) 100 Mg Tab, 100 MG PO BID Finasteride (Finasteride) 5 Mg Tablet, 5 MG PO DAILY Insulin Glargine,Hum.rec.anlog (Basaglar Kwikpen U-100) 100 Unit/Ml Inj, 32 UNIT SC QHS Insulin Human Lispro (Humalog) 100 Unit/1 Ml Vial, 6 UNITS SC DAILY TAKES AT LUNCH Insulin Lispro (Humalog) 100 Unit/Ml Inj, 1 DOSE SC WM PER SLIDING SCALE Insulin Lispro (Humalog) 100 Unit/Ml Inj, 5 UNITS SC BID BREAKFAST AND DINNER Levothyroxine Sodium (Synthroid) 75 Mcg Tablet, 75 MCG PO DAILY Metoprolol Tartrate (Metoprolol Tartrate) 25 Mg Tablet, 25 MG PO BID Multivitamins (Thera M Plus Tablet) 1 Tab Tab, 1 TAB PO DAILY Pantoprazole Sodium (Pantoprazole Sodium) 40 Mg Tab, 40 MG PO DAILY Potassium Chloride (Potassium Chloride) 20 Meq Tab, 20 MEQ PO DAILY Simvastatin (Simvastatin) 20 Mg Tab, 20 MG PO QHS Spironolactone (Spironolactone) 25 Mg Tab, 12.5 MG PO DAILY Tamsulosin HCl (Flomax) 0.4 Mg Cap, 0.8 MG PO QHS Torsemide (Torsemide) 20 Mg Tablet, 20 MG PO DAILY Vit A/Vit C/Vit E/Zinc/Copper (Preservision Areds Tablet) 1 Tab Tab, 1 TAB PO BID Scheduled PRN Carboxymethylcellulose Sodium (Refresh Plus) 1 Each Droperette, 1 DROP OU 5XD PRN for DRY EYES Allergies Coded Allergies: gabapentin (Verified Allergy, Intermediate, rash, 10/20/20) ATTENDING NOTE I have personally evaluated and examined the patient. Discussed with resident/student regarding plan of care and agree with the above assessment and plan. A-FIB/CHADSVASC A-FIB History Current/History of A-Fib/PAF?: Yes Current PO Anticoag Therapy: Yes KAVON ZARATE DO Oct 20, 2020 23:18 ABRAN HERNANDEZ MD Oct 21, 2020 01:15
[2020-10-20] MEDS: PIPERACILLIN/TAZOBACTAM SOD 2.25 GM in D5W MINI-BAG PLUS 50 ML IV SCH (23:29)
[2020-10-20] MEDS: TAMSULOSIN 0.4 MG CAP PO SCH (23:30)
[2020-10-20] MEDS: METOPROLOL TART 25 MG TABLET PO SCH (23:30)
[2020-10-20] MEDS: APIXABAN 2.5 MG TAB (ELIQUIS) PO SCH (23:30)
[2020-10-20] MEDS: SIMVASTATIN 20 MG TAB PO SCH (23:30)
[2020-10-21] MEDS ORDERED: VANCOMYCIN HCL 750 MG, VIAL MATE ADAPTER 1 EACH in D5W 250 ML IV ONE ×2 (02:00→03:00)
[2020-10-21] MEDS: PIPERACILLIN/TAZOBACTAM SOD 2.25 GM in D5W MINI-BAG PLUS 50 ML IV SCH ×3 (05:39→17:10)
[2020-10-21] MEDS: LEVOTHYROXINE 75MCG TABLET (0.075MG) PO SCH (05:40)
[2020-10-21 06:00] LABS: HEMOGLOBIN 11.3 g/dl (13.5-17.5); MEAN CORPUSCULAR HGB CONC 32.3 g/dl (32.0-36.5); MEAN CORPUSCULAR VOLUME 95.9 fl (80.0-96.0); PLATELET COUNT, AUTOMATED 117 10^3/uL (150-450); RED BLOOD COUNT 3.65 10^6/uL (4.30-6.10)
[2020-10-21 06:24] LABS: BILIRUBIN,TOTAL 0.4 MG/DL (0.2-1.0); CALCIUM LEVEL 9.1 MG/DL (8.8-10.2); CREATININE FOR GFR 2.14 MG/DL (0.70-1.30); GLOMERULAR FILTRATION RATE 31.2 (>35); TOTAL PROTEIN 6.7 GM/DL (6.4-8.2)
[2020-10-21] MEDS: CILOSTAZOL 100 MG TAB (PLETAL) PO SCH ×2 (08:15→17:09)
[2020-10-21] MEDS: HumaLOG INSULIN (NovoLOG) PER UNIT SC SCH ×4 (08:15→20:58)
[2020-10-21] MEDS: FINASTERIDE 5 MG TAB PO SCH (08:16)
[2020-10-21] MEDS: METOPROLOL TART 25 MG TABLET PO SCH ×2 (08:17→20:57)
[2020-10-21] MEDS: MULTIVITAMINS/MINERALS THERAP 1 TAB PO SCH (08:17)
[2020-10-21] MEDS: APIXABAN 2.5 MG TAB (ELIQUIS) PO SCH ×2 (08:17→20:57)
[2020-10-21] MEDS: ACETAMINOPHEN TAB 650MG DOSE (2X325MG) PO PRN ×2 (08:17→20:59)
[2020-10-21] MEDS: NS 1,000 ML IV SCH (08:18)
[2020-10-21] MEDS: PANTOPRAZOLE 40MG TAB (PROTONIX) PO SCH (08:18)
[2020-10-21] MEDS ORDERED: VANCOMYCIN INTERMITTENT/PULSE DOSING BY CLINICAL PHARMACIST PER DOSING PROTOCOL XX SCH (09:00)
--- NOTE | 2020-10-21 09:32 | ER ---
ER CONSULTATION DATE: 10/20/2020 TIME: 8:00 p.m. CONSULTING SERVICE: Orthopedic surgery. CONSULTING PHYSICIAN: Chris Elizabeth MD. HISTORY OF PRESENT ILLNESS: This is an 89-year-old male who is a community ambulator who has had 24 hours of left topical knee pain with some pain with passive and active extension. The patient denies pain to axial load. He presented to [facility] for further evaluation when it became painful to walk, and perform flexion/extension of L knee. The patient does have the past medical history listed below. Orthopedic surgery was consulted for concern for possible left septic knee. PAST MEDICAL HISTORY: Includes: 1. Coronary artery disease. 2. Congestive heart failure. 3. Diabetes. 4. Hypertension. 5. Stroke. 6. Pulmonary fibrosis. 7. Hypothyroidism. PAST SURGICAL HISTORY: Includes: 1. Carotid endarterectomy. 2. Coronary artery bypass graft (CABG). 3. Right hallux amputation. ALLERGIES: Denies. CURRENT MEDICATIONS: Please see emergency room (ER) medical reconciliation chart. SOCIAL HISTORY: He is a nonsmoker, nondrinker, not an IV drug user. REVIEW OF SYSTEMS: A 14 point review of systems is negative unless otherwise described in the history of present illness (HPI) above. PHYSICAL EXAMINATION: He is alert to person, time and place. LEFT LOWER EXTREMITY: Patient had some cellulitic erythema about the anterior aspect of his left knee overlying his suprapatellar and lateral aspect of his left knee. The patient, however, does not have any cellulitic changes medial to the patella tendon. He had 2+ dorsalis pedis and posterior tibial arterial pulse, brisk capillary refill to his digits to the left foot. Warm and well-perfused foot. He had 5/5 motor strength to the exterior hallucis longus (EHL), flexor hallucis longus (FHL), tibialis, anterior gastroc soleus and peroneal musculature. He had sensation intact to light touch to the deep and superficial peroneal, sural, saphenous and tibial nerve distributions. The patient denied pain with an axial load to the left lower extremity. IMAGING DATA: Patient's radiographs demonstrate very mild tricompartmental osteoarthritis. He did have some calcification around the lateral compartment within the meniscus, as well as some calcification along the popliteal artery. No osseus abnormalities were appreciated. LABORATORY DATA: WBC 12.5. Erythrocyte sedimentation rate (ESR) 67. C-reactive protein (CRP) 6.42. Synovial fluid analysis of the left knee was: WBCs 350, crystals not seen. Patient is pending cultures, however. There was scant fluid aspirated, so cultures may not be warranted to be processed. IMPRESSION: An 89-year-old male with cellulitis about the anterior aspect of patient's left knee. Left septic knee was ruled out. PROCEDURE: Patient's left knee was aspirated using a 3 mL syringe, 18 gauge needle. We avoided any areas of cellulitis overlying the patient's left medial knee. Due to the fact that his cellulitis is anterolateral, the patient was counseled on the risks and benefits of the aspiration to include ruling out a septic knee. Patient agreed. PLAN: At this point in time, the patient does not have either a left septic knee or a gout, as the crystals were also negative. His synovial white blood cell count of 350 is low and can be likely generally to his tricompartmental osteoarthritis. At this point in time, there are no further orthopedic interventions needed. However, we do recommend internal medicine admission for intravenous (IV) antibiotics for cellulitis per the internal medicine team recommendations. The emergency room (ER) physician costumer assistant has already contacted the hospitalist for the aforementioned diagnosis. JANENE
--- NOTE | 2020-10-21 10:28 | IPNPDOC ---
Date Seen The patient was seen on 10/21/20. Progress Note SUBJECTIVE: No fever, chills overnight. Complains of discomfort in the knee, rated at 4 out of 10 when at rest in bed, No other issues per nursing OBJECTIVE: PHYSICAL EXAMINATION: VITAL SIGNS: See below GENERAL APPEARANCE: Supine in bed, 30 elevation. No distress. Speaks in full sentences HEENT: No icterus Trachea is midline. Mucous membranes are pink and moist., No JVD or cervical lymphadenopathy CARDIOVASCULAR: Normal S1, S2. Regular rate and rhythm. Faint systolic ejection murmur LUNGS: Diminished. No rales, fine crackles at the bases bilaterally ABDOMEN:. Soft nondistended, nontender., Positive bowel sounds 4 quadrants MUSCULOSKELETAL: ErythemaTOUS left patella extending into the anterior leg with no fluctuance, crepitus, or induration EXTREMITIES: No edema.equal pulses in bilateral upper and lower extremities. LABORATORY DATA: See below. IMAGING: PROCEDURE INFORMATION: Exam: US Duplex Left Lower Extremity Veins, Limited Exam date and time: 10/20/2020 4:32 PM Age: 89 years old Clinical indication: Pain; Leg, lower; Left; Additional info: R/O dvt lle TECHNIQUE: Imaging protocol: Real-time Duplex ultrasound of the Left Lower Extremity with 2-D qiu scale, color Doppler flow and spectral waveform analysis with image documentation. Limited exam focused on the left lower extremity veins. COMPARISON: No relevant prior studies available. FINDINGS: Left deep veins: Unremarkable. The common femoral, femoral, popliteal and posterior tibial veins are patent without thrombus. Normal compressibility, augmentation response and Doppler waveforms. Left superficial veins: Unremarkable. Saphenofemoral junction is patent without thrombus. Soft tissues: Unremarkable. IMPRESSION: No sonographic evidence of deep vein thrombosis. Electronically signed by: Philip Hackett On 10/20/2020 17:16:43 PM Left knee x-ray: INDICATION: Left knee pain, red/hot swollen. COMPARISON: None. TECHNIQUE: Five views. FINDINGS: Five views of the left knee demonstrate prepatellar soft tissue swelling. Vascular calcifications noted. There is diffuse osteopenia. Mild chondrocalcinosis. No fracture is seen. No evidence of joint effusion.. . No opaque foreign body no nayely. IMPRESSION: Diffuse osteopenia and vascular calcification. Prepatellar soft tissue swelling. No acute bony abnormality.. <Electronically signed by Jorge Pagan > 10/20/20 1647 MICROBIOLOGY: Please see below. ASSESSMENT/PLAN: 89-year-old male with a past medical history significant for hypertension, coronary artery disease status post quadruple bypass, CHF of unclassified type atrial fibrillation who presented to the [facility] emergency department with complaint of left knee swelling and pain. Left knee cellulitis -Orthopedic surgery consulted and recommended IV antibiotics -No signs of joint infection or gout -iv zosyn started 10/20/20 day#2 Chronic Thrombocytopenia -no indication for plt transfusion -no signs of active bleeding Hypertension. -controlled on home meds Diabetes mellitus type 2. -resumed on home meds -consistent carbs diet -insulin sliding scale w qach/hs fingersticks with coverage CKD 3 -at baseline creatinine -avoid nephrotoxins and renally dose medications -strict i/o, daily weights -monitor for electrolyte abnormalities or acidosis Congestive heart failure,unknown EF -avoid NSAIDs -ECHO since EF not documented -strict i/o, daily weights -monitor for respiratory distress Coronary artery disease/CABG -resumed on metoprolol History of stroke -on oral AC Hypothyroidism -on synthroid Peripheral Arterial Disease -resumedhome meds Idiopathic pulmonary fibrosis. -complicating care -ECHo to check for pulm htn and pa pressure measurement Benign prostatic hyperplasia -resumed on home meds chronic Atrial fibrillation -on Eliquis -rate controlled on metoprolol Debility -PT/OT Diet: 2gram sodium/Renal diet Activity: as tolerated fall precautions, assisted ambulation Code: full code DVT prophylaxis: on eliquis. . VS, I&O, 24H, Fishbone Vital Signs/I&O Vital Signs Date Time Temp Pulse Resp B/P (MAP) Pulse Ox O2 Delivery O2 Flow Rate FiO2 10/21/20 08:17 84 120/74 10/20/20 22:50 96.6 18 96 Room Air I&O- Last 24 Hours up to 6 AM 10/21/20 06:00 Intake Total 1000 ml Output Total 0 ml Balance 1000 ml Laboratory Data 24H LABS Laboratory Tests 2 10/20/20 16:23: Immature Granulocyte % (Auto) 0.4, Neutrophils (%) (Auto) 56.1, Lymphocytes (%) (Auto) 23.9L, Monocytes (%) (Auto) 19.1H, Eosinophils (%) (Auto) 0.3, Basophils (%) (Auto) 0.2, Neutrophils # (Auto) 7.0, Lymphocytes # (Auto) 3.0, Monocytes # (Auto) 2.4H, Eosinophils # (Auto) 0.0, Basophils # (Auto) 0.0, Nucleated Red Blood Cells % (auto) 0.0, Erythrocyte Sedimentation Rate 67H, Anion Gap 11, Glomerular Filtration Rate 25.3L, Calcium Level 9.5, C-Reactive Protein, Quantitative 6.43H 10/20/20 16:24: Uric Acid 9.0H 10/20/20 18:35: Lactic Acid Level 1.3, Coronavirus (COVID-19)(PCR) NEGATIVE, Influenza Type A (RT-PCR) NEGATIVE, Influenza Type B (RT-PCR) NEGATIVE, Respiratory Syncytial Virus (PCR) NEGATIVE 10/20/20 19:43: Bedside Glucose (Misc Panel) 144H 10/20/20 20:31: Body Fluid Source LFT KNEE, Body Fluid WBC (Auto) 350H, Body Fluid RBC (Auto) 41, Body Fluid Mononuclear Cells % Auto 70.5H, Fluid Polymorphonuclear Cell % Auto 29.5H, Body Fluid Crystals NONE SEEN, Body Fluid Crystal Source LFT KNEE, Body Fluid Glucose Source LFT KNEE, Body Fluid Glucose , Body Fluid Uric Acid , Body Fluid Uric Acid Source LFT KNEE, Body Fluid Rheumatoid Factor Screen , Body Fluid Rheumatoid Factor Source LFT KNEE, Synovial Fluid Source LFT KNEE, Synovial Fluid Color PINK, Synovial Fluid Appearance TURBID, Synovial Fluid Mucin Clot 10/20/20 22:42: Urine Color YELLOW, Urine Appearance CLEAR, Urine pH 5.0, Urine Specific [place] 1.010, Urine Protein NEGATIVE, Urine Glucose (Auto)(UA) NEGATIVE, Urine Ketones (Auto) NEGATIVE, Urine Blood NEGATIVE, Urine Nitrite NEGATIVE, Urine Bilirubin NEGATIVE, Urine Urobilinogen 0.2, Urine Leukocyte Esterase (Auto) NEGATIVE, Urine WBC (Auto) 0, Urine RBC (Auto) 0, Urine Hyaline Casts (Auto) 0, Urine Bacteria (Auto) NEGATIVE, Urine Squamous Epithelial Cells 0, Urine Sperm (Auto) , Urine Random Creatinine 53.8, Urine Random Urea Nitrogen 534 10/20/20 23:21: Bedside Glucose (Misc Panel) 138H 10/21/20 05:43: Nucleated Red Blood Cells % (auto) 0.0, Anion Gap 6L, Glomerular Filtration Rate 31.2L, Calcium Level 9.1, Total Bilirubin 0.4, Aspartate Amino Transf (AST/SGOT) 19, Alanine Aminotransferase (ALT/SGPT) 30, Alkaline Phosphatase 115, Total Protein 6.7, Albumin 3.0L, Albumin/Globulin Ratio 0.8 CBC/BMP Laboratory Tests 10/20/20 16:23 10/21/20 05:43 Microbiology Microbiology 10/20/20 Blood Culture, Received Pending 10/20/20 Blood Culture, Received Pending THIEN BOWIE MD Oct 21, 2020 10:19
[2020-10-21 14:00] VITALS: BP 108/53
[2020-10-21] MEDS: SIMVASTATIN 20 MG TAB PO SCH (20:57)
[2020-10-21] MEDS: TAMSULOSIN 0.4 MG CAP PO SCH (20:57)
[2020-10-21] MEDS ORDERED: LEVEMIR (INSULIN DETEMIR) 1 UNITS/0.01ML SC SCH (21:00)
[2020-10-21 22:00] VITALS: BP 119/62
[2020-10-22] MEDS: PIPERACILLIN/TAZOBACTAM SOD 2.25 GM in D5W MINI-BAG PLUS 50 ML IV SCH ×5 (00:28→23:51)
[2020-10-22] MEDS ORDERED: VANCOMYCIN HCL 750 MG, VIAL MATE ADAPTER 1 EACH in D5W 250 ML IV ONE ×7 (02:00→03:00)
[2020-10-22] MEDS ORDERED: VANCOMYCIN HCL 1,000 MG, VIAL MATE ADAPTER 1 EACH in D5W 250 ML IV ONE (02:00)
[2020-10-22 06:00] VITALS: BP 119/64
[2020-10-22] MEDS: LEVOTHYROXINE 75MCG TABLET (0.075MG) PO SCH (06:28)
[2020-10-22 07:11] LABS: HEMATOCRIT 33.6 % (42.0-52.0); HEMOGLOBIN 10.7 g/dl (13.5-17.5); MEAN CORPUSCULAR HEMOGLOBIN 30.8 pg (27.0-33.0); MEAN CORPUSCULAR HGB CONC 31.8 g/dl (32.0-36.5); MEAN CORPUSCULAR VOLUME 96.8 fl (80.0-96.0); PLATELET COUNT, AUTOMATED 122 10^3/uL (150-450); RED BLOOD COUNT 3.47 10^6/uL (4.30-6.10); WHITE BLOOD COUNT 8.2 10^3/uL (4.0-10.0)
[2020-10-22 07:49] LABS: ALBUMIN 2.6 GM/DL (3.2-5.2); BILIRUBIN,TOTAL 0.4 MG/DL (0.2-1.0); CALCIUM LEVEL 8.9 MG/DL (8.8-10.2); CREATININE FOR GFR 1.83 MG/DL (0.70-1.30); GLOMERULAR FILTRATION RATE 37.4 (>35); TOTAL PROTEIN 6.3 GM/DL (6.4-8.2)
--- NOTE | 2020-10-22 08:16 | IPNPDOC ---
Date Seen The patient was seen on 10/22/20. Progress Note SUBJECTIVE: no fever chills 4/10 pain in left knee when ambulates but tolerable requires assistance and walker when ambulates no c/o sob despite ivfluids OBJECTIVE: PHYSICAL EXAMINATION: VITAL SIGNS: See below GENERAL APPEARANCE: asleep and arousable. no disstress HEENT: dry mm No JVD or cervical lymphadenopathy CARDIOVASCULAR: Normal S1, S2. Regular rate and rhythm. Faint systolic ejection murmur LUNGS: Diminished. No rales, fine crackles at the bases bilaterally ABDOMEN:. Soft nondistended, nontender., Positive bowel sounds 4 quadrants MUSCULOSKELETAL: less erythemaleft patella extending into the anterior leg with no fluctuance, crepitus, or induration EXTREMITIES: No edema.equal pulses in bilateral upper and lower extremities. LABORATORY DATA: See below. IMAGING: PROCEDURE INFORMATION: Exam: US Duplex Left Lower Extremity Veins, Limited Exam date and time: 10/20/2020 4:32 PM Age: 89 years old Clinical indication: Pain; Leg, lower; Left; Additional info: R/O dvt lle TECHNIQUE: Imaging protocol: Real-time Duplex ultrasound of the Left Lower Extremity with 2-D qiu scale, color Doppler flow and spectral waveform analysis with image documentation. Limited exam focused on the left lower extremity veins. COMPARISON: No relevant prior studies available. FINDINGS: Left deep veins: Unremarkable. The common femoral, femoral, popliteal and posterior tibial veins are patent without thrombus. Normal compressibility, augmentation response and Doppler waveforms. Left superficial veins: Unremarkable. Saphenofemoral junction is patent without thrombus. Soft tissues: Unremarkable. IMPRESSION: No sonographic evidence of deep vein thrombosis. Electronically signed by: Philip Hackett On 10/20/2020 17:16:43 PM Left knee x-ray: INDICATION: Left knee pain, red/hot swollen. COMPARISON: None. TECHNIQUE: Five views. FINDINGS: Five views of the left knee demonstrate prepatellar soft tissue swelling. Vascular calcifications noted. There is diffuse osteopenia. Mild chondrocalcinosis. No fracture is seen. No evidence of joint effusion.. . No opaque foreign body noted. IMPRESSION: Diffuse osteopenia and vascular calcification. Prepatellar soft tissue swelling. No acute bony abnormality.. <Electronically signed by Jorge Pagan > 10/20/20 1647 MICROBIOLOGY: Please see below. ASSESSMENT/PLAN: 89-year-old male with a past medical history significant for hypertension, coronary artery disease status post quadruple bypass, CHF of unclassified type atrial fibrillation who presented to the [facility] emergency department with complaint of left knee swelling and pain. Left knee cellulitis -Orthopedic surgery consulted and recommended IV antibiotics -No signs of joint infection or gout -iv zosyn started 10/20/20 day#3 -normal wbc and no fever -clinically improving with less erythema and tenderness -able to ambulate Chronic Thrombocytopenia -no indication for plt transfusion -no signs of active bleeding Hypertension. -controlled on home meds Diabetes mellitus type 2. -resumed on home meds -consistent carbs diet -insulin sliding scale w qach/hs fingersticks with coverage -increased levemir to 15 units for better glycemic control CKD 3 -at baseline creatinine -avoid nephrotoxins and renally dose medications -strict i/o, daily weights -monitor for electrolyte abnormalities or acidosis -s/p ivfluids Congestive heart failure,unknown EF -avoid NSAIDs -ECHO since EF not documented -strict i/o, daily weights -monitor for respiratory distress -discontinued ivfluids Coronary artery disease/CABG -resumed on metoprolol History of stroke -on oral AC Hypothyroidism -on synthroid Peripheral Arterial Disease -resumedhome meds Idiopathic pulmonary fibrosis. -complicating care -ECHo to check for pulm htn and pa pressure measurement Benign prostatic hyperplasia -resumed on home meds chronic Atrial fibrillation -on Eliquis -rate controlled on metoprolol Debility -PT/OT Diet: 2gram sodium/Renal diet Activity: as tolerated fall precautions, assisted ambulation Code: full code DVT prophylaxis: on eliquis. disposition: 3 days abx and aru screen. dc plans sat or VS, I&O, 24H, Fishbone Vital Signs/I&O Vital Signs Date Time Temp Pulse Resp B/P (MAP) Pulse Ox O2 Delivery O2 Flow Rate FiO2 10/22/20 06:00 98.6 90 18 119/64 (82) 96 Room Air I&O- Last 24 Hours up to 6 AM 10/22/20 06:00 Intake Total 1895 ml Output Total 1550 ml Balance 345 ml Laboratory Data 24H LABS Laboratory Tests 2 10/21/20 11:20: Bedside Glucose (Misc Panel) 145H 10/21/20 16:26: Bedside Glucose (Misc Panel) 204H 10/21/20 19:43: Bedside Glucose (Misc Panel) 276H 10/22/20 00:56: Vancomycin Level Trough 7.8L 10/22/20 06:53: Nucleated Red Blood Cells % (auto) 0.0 CBC/BMP Laboratory Tests 10/22/20 06:53 Microbiology Microbiology 10/20/20 Blood Culture - Preliminary, Resulted No growth after 24 hours . All specim... 10/20/20 Blood Culture - Preliminary, Resulted No growth after 24 hours . All specim... THIEN BOWIE MD Oct 22, 2020 07:35
[2020-10-22] MEDS: MULTIVITAMINS/MINERALS THERAP 1 TAB PO SCH (08:40)
[2020-10-22] MEDS: PANTOPRAZOLE 40MG TAB (PROTONIX) PO SCH (08:40)
[2020-10-22] MEDS: METOPROLOL TART 25 MG TABLET PO SCH ×2 (08:40→21:45)
[2020-10-22] MEDS: CILOSTAZOL 100 MG TAB (PLETAL) PO SCH ×2 (08:40→17:44)
[2020-10-22] MEDS: APIXABAN 2.5 MG TAB (ELIQUIS) PO SCH ×2 (08:40→21:44)
[2020-10-22] MEDS: FINASTERIDE 5 MG TAB PO SCH (08:40)
[2020-10-22] MEDS: HumaLOG INSULIN (NovoLOG) PER UNIT SC SCH ×4 (08:41→21:00)
[2020-10-22 14:00] VITALS: BP 131/75
[2020-10-22] MEDS ORDERED: LEVEMIR (INSULIN DETEMIR) 1 UNITS/0.01ML SC SCH (21:00)
[2020-10-22] MEDS: ACETAMINOPHEN TAB 650MG DOSE (2X325MG) PO PRN (21:44)
[2020-10-22] MEDS: SIMVASTATIN 20 MG TAB PO SCH (21:44)
[2020-10-22] MEDS: TAMSULOSIN 0.4 MG CAP PO SCH (21:44)
[2020-10-22 22:00] VITALS: BP 128/68
[2020-10-23 06:00] VITALS: BP 154/76
[2020-10-23] MEDS: LEVOTHYROXINE 75MCG TABLET (0.075MG) PO SCH (06:02)
[2020-10-23] MEDS: PIPERACILLIN/TAZOBACTAM SOD 2.25 GM in D5W MINI-BAG PLUS 50 ML IV SCH ×3 (06:03→17:42)
[2020-10-23] MEDS: ACETAMINOPHEN TAB 650MG DOSE (2X325MG) PO PRN ×2 (06:03→21:19)
[2020-10-23 06:48] LABS: HEMATOCRIT 32.9 % (42.0-52.0); HEMOGLOBIN 10.5 g/dl (13.5-17.5); MEAN CORPUSCULAR HGB CONC 31.9 g/dl (32.0-36.5); MEAN CORPUSCULAR VOLUME 97.1 fl (80.0-96.0); PLATELET COUNT, AUTOMATED 133 10^3/uL (150-450); RED BLOOD COUNT 3.39 10^6/uL (4.30-6.10); WHITE BLOOD COUNT 8.7 10^3/uL (4.0-10.0)
[2020-10-23 07:15] LABS: ALBUMIN 2.6 GM/DL (3.2-5.2); BILIRUBIN,TOTAL 0.3 MG/DL (0.2-1.0); CALCIUM LEVEL 8.6 MG/DL (8.8-10.2); CREATININE FOR GFR 1.86 MG/DL (0.70-1.30); GLOMERULAR FILTRATION RATE 36.7 (>35); POTASSIUM SERUM 3.9 MEQ/L (3.5-5.1); TOTAL PROTEIN 6.3 GM/DL (6.4-8.2); VANCOMYCIN RANDOM 12.3 UG/ML
[2020-10-23] MEDS: FINASTERIDE 5 MG TAB PO SCH (08:34)
[2020-10-23] MEDS: HumaLOG INSULIN (NovoLOG) PER UNIT SC SCH ×4 (08:34→21:20)
[2020-10-23] MEDS: PANTOPRAZOLE 40MG TAB (PROTONIX) PO SCH (08:35)
[2020-10-23] MEDS: APIXABAN 2.5 MG TAB (ELIQUIS) PO SCH ×2 (08:35→21:19)
[2020-10-23] MEDS: METOPROLOL TART 25 MG TABLET PO SCH ×2 (08:35→21:19)
[2020-10-23] MEDS: MULTIVITAMINS/MINERALS THERAP 1 TAB PO SCH (08:35)
[2020-10-23] MEDS: CILOSTAZOL 100 MG TAB (PLETAL) PO SCH ×2 (08:35→17:42)
[2020-10-23] MEDS ORDERED: VANCOMYCIN HCL 1,000 MG, VIAL MATE ADAPTER 1 EACH in D5W 250 ML IV SCH (09:00)
--- NOTE | 2020-10-23 12:07 | IPNPDOC ---
Date Seen The patient was seen on 10/23/20. Progress Note SUBJECTIVE: c/o difficulty ambulating with left knee pain especially when starts to get up and bear weight on it. no fever or chills . no swelling or open drainage. no other issues per RN. despite iv abx, no diarrhea OBJECTIVE: PHYSICAL EXAMINATION: VITAL SIGNS: See below GENERAL APPEARANCE: sitting on bedside chair having breakfast. no distress. aao to persona dn place and answering questions appropriately no distress HEENT: moist mm No JVD or cervical lymphadenopathy CARDIOVASCULAR: Normal S1, S2. Regular rate and rhythm. LUNGS: Diminished.no adventitious breath sounds. ABDOMEN:. Soft nondistended, nontender., Positive bowel sounds 4 quadrants MUSCULOSKELETAL: less erythema less tender left patella extending into the anterior leg with no fluctuance, crepitus, or induration EXTREMITIES: No edema.equal pulses in bilateral upper and lower extremities. LABORATORY DATA: See below. IMAGING: PROCEDURE INFORMATION: Exam: US Duplex Left Lower Extremity Veins, Limited Exam date and time: 10/20/2020 4:32 PM Age: 89 years old Clinical indication: Pain; Leg, lower; Left; Additional info: R/O dvt lle TECHNIQUE: Imaging protocol: Real-time Duplex ultrasound of the Left Lower Extremity with 2-D qiu scale, color Doppler flow and spectral waveform analysis with image documentation. Limited exam focused on the left lower extremity veins. COMPARISON: No relevant prior studies available. FINDINGS: Left deep veins: Unremarkable. The common femoral, femoral, popliteal and posterior tibial veins are patent without thrombus. Normal compressibility, augmentation response and Doppler waveforms. Left superficial veins: Unremarkable. Saphenofemoral junction is patent without thrombus. Soft tissues: Unremarkable. IMPRESSION: No sonographic evidence of deep vein thrombosis. Electronically signed by: Philip Hackett On 10/20/2020 17:16:43 PM Left knee x-ray: INDICATION: Left knee pain, red/hot swollen. COMPARISON: None. TECHNIQUE: Five views. FINDINGS: Five views of the left knee demonstrate prepatellar soft tissue swelling. Vascular calcifications noted. There is diffuse osteopenia. Mild chondrocalcinosis. No fracture is seen. No evidence of joint effusion.. . No opaque foreign body noted. IMPRESSION: Diffuse osteopenia and vascular calcification. Prepatellar soft tissue swelling. No acute bony abnormality.. <Electronically signed by Jorge Pagan > 10/20/20 [id number] MICROBIOLOGY: Please see below. ASSESSMENT/PLAN: 89-year-old male with a past medical history significant for hypertension, coronary artery disease status post quadruple bypass, CHF of unclassified type atrial fibrillation who presented to the [facility] emergency department with complaint of left knee swelling and pain. Left knee cellulitis -Orthopedic surgery consulted and recommended IV antibiotics -No signs of joint infection or gout -iv zosyn started 10/20/20 day#4 -vanco iv -normal wbc and no fever -clinically improving with less erythema and tenderness -able to ambulate -will need PT clearance due to increased fall risk Chronic Thrombocytopenia -no indication for plt transfusion -no signs of active bleeding Hypertension. -controlled on home meds Diabetes mellitus type 2. -resumed on home meds -consistent carbs diet -insulin sliding scale w qach/hs fingersticks with coverage -increased levemir to 18 units for better glycemic control CKD 3 -at baseline creatinine -avoid nephrotoxins and renally dose medications -strict i/o, daily weights -monitor for electrolyte abnormalities or acidosis -s/p ivfluids Congestive heart failure,unknown EF -avoid NSAIDs -ECHO since EF not documented -strict i/o, daily weights -monitor for respiratory distress -discontinued ivfluids Coronary artery disease/CABG -resumed on metoprolol History of stroke -on oral AC Hypothyroidism -on synthroid Peripheral Arterial Disease -resumedhome meds Idiopathic pulmonary fibrosis. -complicating care -ECHo to check for pulm htn and pa pressure measurement Benign prostatic hyperplasia -resumed on home meds chronic Atrial fibrillation -on Eliquis -rate controlled on metoprolol Debility -PT/OT Diet: 2gram sodium/Renal diet Activity: as tolerated fall precautions, assisted ambulation Code: full code DVT prophylaxis: on eliquis. disposition: change to po abx mon or tu. await pt clearance. dc tu if stable. VS, I&O, 24H, Fishbone Vital Signs/I&O Vital Signs Date Time Temp Pulse Resp B/P (MAP) Pulse Ox O2 Delivery O2 Flow Rate FiO2 10/23/20 08:35 91 154/76 10/23/20 06:00 99.2 18 Room Air 10/22/20 22:00 95 I&O- Last 24 Hours up to 6 AM 10/23/20 06:00 Intake Total 1940 ml Balance 1940 ml Laboratory Data 24H LABS Laboratory Tests 2 10/22/20 12:17: Bedside Glucose (Misc Panel) 195H 10/22/20 16:34: Bedside Glucose (Misc Panel) 247H 10/22/20 20:32: Bedside Glucose (Misc Panel) 229H 10/23/20 06:23: Nucleated Red Blood Cells % (auto) 0.0, Anion Gap 9, Glomerular Filtration Rate 36.7, Calcium Level 8.6L, Total Bilirubin 0.3, Aspartate Amino Transf (AST/SGOT) 17, Alanine Aminotransferase (ALT/SGPT) 28, Alkaline Phosphatase 122H, Total Protein 6.3L, Albumin 2.6L, Albumin/Globulin Ratio 0.7, Random Vancomycin Level 12.3 CBC/BMP Laboratory Tests 10/23/20 06:23 Microbiology Microbiology 10/20/20 Blood Culture - Preliminary, Resulted No Growth after 48 hours. All Specime... 10/20/20 Blood Culture - Preliminary, Resulted No Growth after 48 hours. All Specime... THIEN BOWIE MD Oct 23, 2020 12:07
[2020-10-23 14:00] VITALS: BP 115/65
[2020-10-23] MEDS ORDERED: LEVEMIR (INSULIN DETEMIR) 1 UNITS/0.01ML SC SCH (21:00)
[2020-10-23] MEDS: TAMSULOSIN 0.4 MG CAP PO SCH (21:18)
[2020-10-23] MEDS: SIMVASTATIN 20 MG TAB PO SCH (21:19)
[2020-10-23 22:00] VITALS: BP 116/60
[2020-10-24] MEDS: ACETAMINOPHEN TAB 650MG DOSE (2X325MG) PO PRN ×2 (05:06→21:08)
[2020-10-24] MEDS: LEVOTHYROXINE 75MCG TABLET (0.075MG) PO SCH (05:06)
--- NOTE | 2020-10-24 07:44 | IPNPDOC ---
Date Seen The patient was seen on 10/24/20. Progress Note SUBJECTIVE: patients says he has less pain, swelling and redness of the left knee. he is cooperative with physical therapy and feels ok when he walks with his walker with pain medications. no c/o fever, chills, no diarrhea despite iv abx. no c/o sob. OBJECTIVE: PHYSICAL EXAMINATION: VITAL SIGNS: See below GENERAL APPEARANCE: lying on his left side in position asleep, but awakened easily. no respiratory distress answering questions appropriately w/o use of resp acc mm. HEENT: moist mm No JVD or cervical lymphadenopathy CARDIOVASCULAR: Normal S1, S2. Regular rate and rhythm. LUNGS: Diminished.no adventitious breath sounds. ABDOMEN:. Soft nondistended, nontender., Positive bowel sounds 4 quadrants MUSCULOSKELETAL: less erythema pink in color better than beet colored on Saturday less tender and no swelling of the left patella anterior leg with no fluctuance, crepitus, or induration EXTREMITIES: No edema.equal pulses in bilateral upper and lower extremities. LABORATORY DATA: See below. IMAGING: PROCEDURE INFORMATION: Exam: US Duplex Left Lower Extremity Veins, Limited Exam date and time: 10/20/2020 4:32 PM Age: 89 years old Clinical indication: Pain; Leg, lower; Left; Additional info: R/O dvt lle TECHNIQUE: Imaging protocol: Real-time Duplex ultrasound of the Left Lower Extremity with 2-D qiu scale, color Doppler flow and spectral waveform analysis with image documentation. Limited exam focused on the left lower extremity veins. COMPARISON: No relevant prior studies available. FINDINGS: Left deep veins: Unremarkable. The common femoral, femoral, popliteal and posterior tibial veins are patent without thrombus. Normal compressibility, augmentation response and Doppler waveforms. Left superficial veins: Unremarkable. Saphenofemoral junction is patent without thrombus. Soft tissues: Unremarkable. IMPRESSION: No sonographic evidence of deep vein thrombosis. Electronically signed by: Philip Hackett On 10/20/2020 17:16:43 PM Left knee x-ray: INDICATION: Left knee pain, red/hot swollen. COMPARISON: None. TECHNIQUE: Five views. FINDINGS: Five views of the left knee demonstrate prepatellar soft tissue swelling. Vascular calcifications noted. There is diffuse osteopenia. Mild chondrocalcinosis. No fracture is seen. No evidence of joint effusion.. . No opaque foreign body noted. IMPRESSION: Diffuse osteopenia and vascular calcification. Prepatellar soft tissue swelling. No acute bony abnormality.. <Electronically signed by Jorge Pagan > 10/20/20 [id number] MICROBIOLOGY: Please see below. ASSESSMENT/PLAN: 89-year-old male with a past medical history significant for hypertension, coronary artery disease status post quadruple bypass, CHF of unclassified type atrial fibrillation who presented to the [facility] emergency department with complaint of left knee swelling and pain. Left knee cellulitis -Orthopedic surgery consulted and recommended IV antibiotics -No signs of joint infection or gout -iv zosyn started 10/20/20 finished 4days -iv vanco started 10/20/20 day #5 -normal wbc and no fever -clinically improving with less erythema and tenderness -able to ambulate -will need PT clearance due to increased fall risk -ortho wanted us of the left knee to check for more edema Chronic Thrombocytopenia -no indication for plt transfusion -no signs of active bleeding Hypertension. -controlled on home meds Diabetes mellitus type 2, uncontrolled -resumed on home meds -consistent carbs diet -insulin sliding scale w qach/hs fingersticks with coverage -increased levemir to 20 from 18 units for better glycemic control CKD 3 -at baseline creatinine -avoid nephrotoxins and renally dose medications -strict i/o, daily weights -monitor for electrolyte abnormalities or acidosis -s/p ivfluids Congestive heart failure,unknown EF -avoid NSAIDs -ECHO since EF not documented -strict i/o, daily weights -monitor for respiratory distress -discontinued ivfluids Coronary artery disease/CABG -resumed on metoprolol History of stroke -on oral AC Hypothyroidism -on synthroid Peripheral Arterial Disease -resumedhome meds Idiopathic pulmonary fibrosis. -complicating care -ECHo to check for pulm htn and pa pressure measurement Benign prostatic hyperplasia -resumed on home meds chronic Atrial fibrillation -on Eliquis -rate controlled on metoprolol Debility -PT/OT Diet: 2gram sodium/Renal diet Activity: as tolerated fall precautions, assisted ambulation Code: full code DVT prophylaxis: on eliquis. disposition: 1-2 more days pending clinical improvement and PT clearance. VS, I&O, 24H, Fishbone Vital Signs/I&O Vital Signs Date Time Temp Pulse Resp B/P (MAP) Pulse Ox O2 Delivery O2 Flow Rate FiO2 10/23/20 22:00 98.6 91 20 116/60 (78) 98 Room Air I&O- Last 24 Hours up to 6 AM 10/24/20 06:00 Intake Total 2150 ml Output Total 0 ml Balance 2150 ml Laboratory Data 24H LABS Laboratory Tests 2 10/23/20 11:53: Bedside Glucose (Misc Panel) 227H 10/23/20 16:49: Bedside Glucose (Misc Panel) 237H 10/23/20 20:05: Bedside Glucose (Misc Panel) 286H Microbiology Microbiology 10/20/20 Blood Culture - Preliminary, Resulted No Growth after 72 hours. All specime... 10/20/20 Blood Culture - Preliminary, Resulted No Growth after 72 hours. All specime... THIEN BOWIE MD Oct 24, 2020 07:44
[2020-10-24 08:12] LABS: HEMATOCRIT 32.5 % (42.0-52.0); HEMOGLOBIN 10.6 g/dl (13.5-17.5); MEAN CORPUSCULAR HEMOGLOBIN 31.5 pg (27.0-33.0); MEAN CORPUSCULAR HGB CONC 32.6 g/dl (32.0-36.5); MEAN CORPUSCULAR VOLUME 96.4 fl (80.0-96.0); PLATELET COUNT, AUTOMATED 145 10^3/uL (150-450); RED BLOOD COUNT 3.37 10^6/uL (4.30-6.10); WHITE BLOOD COUNT 8.1 10^3/uL (4.0-10.0)
[2020-10-24 08:43] LABS: ALBUMIN 2.6 GM/DL (3.2-5.2); BILIRUBIN,TOTAL 0.4 MG/DL (0.2-1.0); CALCIUM LEVEL 9.1 MG/DL (8.8-10.2); CREATININE FOR GFR 1.84 MG/DL (0.70-1.30); GLOMERULAR FILTRATION RATE 37.1 (>35); POTASSIUM SERUM 3.9 MEQ/L (3.5-5.1); TOTAL PROTEIN 6.3 GM/DL (6.4-8.2)
[2020-10-24] MEDS ORDERED: CADEXOMER IODINE 10GM (IODOSORB) GEL ONE (09:00)
[2020-10-24] MEDS: FINASTERIDE 5 MG TAB PO SCH (09:08)
[2020-10-24] MEDS: MULTIVITAMINS/MINERALS THERAP 1 TAB PO SCH (09:08)
[2020-10-24] MEDS: HumaLOG INSULIN (NovoLOG) PER UNIT SC SCH ×4 (09:08→21:09)
[2020-10-24] MEDS: CILOSTAZOL 100 MG TAB (PLETAL) PO SCH ×2 (09:08→17:31)
[2020-10-24] MEDS: APIXABAN 2.5 MG TAB (ELIQUIS) PO SCH ×2 (09:08→21:07)
[2020-10-24] MEDS: CEPHALEXIN 500 MG CAP PO SCH ×3 (09:08→21:07)
[2020-10-24] MEDS: PANTOPRAZOLE 40MG TAB (PROTONIX) PO SCH (09:08)
[2020-10-24] MEDS: METOPROLOL TART 25 MG TABLET PO SCH ×2 (09:09→21:08)
--- NOTE | 2020-10-24 09:38 | REP ---
INDICATION: nonhealing ulcer COMPARISON: None. TECHNIQUE: Real time alvarez scale and Duplex Doppler evaluation of the bilateral lower extremity arterial vasculature using linear high frequency transducer. FINDINGS: Alvarez scale and duplex doppler images demonstrate mild to moderate amounts of atheromatous plaquing with areas of minimal narrowing but no focal stenosis identified. Doppler interrogation demonstrates diffuse monophasic waveforms bilaterally with normal flow velocities bilaterally. Peak systolic velocities (cm/sec) Common femoral artery: Right 94; Left 117 Profunda femoris: Right 128; Left 84 SFA (proximal): Right 76; Left 81 SFA (mid): Right 105; Left 96 SFA (distal): Right 71; Left 83 Popliteal artery: Right 94; Left 67 RODRIGUE (prox.): Right 56; Left 28 Tibioperoneal trunk: Right 73; Left 100 HUMAN RESOURCES ADMIN (prox.): Right 60; Left 52 HUMAN RESOURCES ADMIN (distal): Right 54; Left 60 RODRIGUE (distal): Right 55; Left 64 IMPRESSION: Atheromatous changes with areas of narrowing but no obvious focal occlusion or stenosis. <Electronically signed by Corey Alvarez > 10/24/20 0948
[2020-10-24] MEDS: CADEXOMER IODINE 10GM (IODOSORB) GEL TOP SCH (15:17)
[2020-10-24] MEDS ORDERED: LEVEMIR (INSULIN DETEMIR) 1 UNITS/0.01ML SC SCH (21:00)
[2020-10-24] MEDS: TAMSULOSIN 0.4 MG CAP PO SCH (21:07)
[2020-10-24] MEDS: SIMVASTATIN 20 MG TAB PO SCH (21:07)
--- NOTE | 2020-10-24 21:25 | CR ---
CONSULTATION DATE: 10/24/2020 CONSULT REQUESTED BY: Tatyana Posadas MD REASON FOR CONSULTATION: Requested by Dr. Tatyana Posadas regarding evaluation and treatment of left great toe wound. Consult performed via telemedicine HISTORY OF PRESENT ILLNESS: 89-year-old diabetic male found to have cellulitis involving the left knee and additionally an old left great toe wound. The patient's last blood glucose 261. Normal WBC count and the patient is afebrile. FINDINGS: Left great toe medial aspect shows a wound measure of 1.5 cm x 1.5 cm with a wound depth of 0.2 cm. The wound base shows fibrin slough. The periwound shows maceration. The drainage is minimal and serosanguinous. Additionally, the patient has an erythematous fluctuant left patellar bursa inflammation. I was not asked to evaluate this. TREATMENT AND RECOMMENDATIONS: The patient left patellar bursa should be drained surgically Needle aspiration is not sufficient This can be done by orthopedics. In terms of his diabetic toe ulcer the maceration of the periwound appears to be caused by a ruber condom like dressing that the patient had been utilizing. This should be discontinued and not used. A foam dressing would be appropriate. An arterial ultrasound is indicated and should be performed while the patient is in the hospital for this. There is no indication for antibiotic therapy for the digit. However, this may be indicated for the left patellar bursa. Once the patient has been discharged, follow up at our advanced wound care clinic would be advisable for local wound care and debridement. Depending upon the findings of his arterial ultrasound, additional intervention may be required. Appropriate footwear would also have to be evaluated as this is often a potential etiological factor. Please notify the clinic when the patient is ready for discharge if he wishes to follow up at our advanced wound care clinic. JANENE
[2020-10-24 22:00] VITALS: BP 123/73
[2020-10-25] MEDS: LEVOTHYROXINE 75MCG TABLET (0.075MG) PO SCH (05:02)
[2020-10-25] MEDS: ACETAMINOPHEN TAB 650MG DOSE (2X325MG) PO PRN ×2 (05:03→20:10)
[2020-10-25 06:23] LABS: HEMATOCRIT 32.2 % (42.0-52.0); HEMOGLOBIN 10.3 g/dl (13.5-17.5); MEAN CORPUSCULAR HEMOGLOBIN 31.3 pg (27.0-33.0); MEAN CORPUSCULAR VOLUME 97.9 fl (80.0-96.0); PLATELET COUNT, AUTOMATED 143 10^3/uL (150-450); RED BLOOD COUNT 3.29 10^6/uL (4.30-6.10); WHITE BLOOD COUNT 8.4 10^3/uL (4.0-10.0)
[2020-10-25 06:39] LABS: HEMOGLOBIN A1c 7.5 %
[2020-10-25 06:50] LABS: ALBUMIN 2.4 GM/DL (3.2-5.2); BILIRUBIN,TOTAL 0.3 MG/DL (0.2-1.0); CALCIUM LEVEL 9.2 MG/DL (8.8-10.2); CREATININE FOR GFR 1.94 MG/DL (0.70-1.30); GLOMERULAR FILTRATION RATE 34.9 (>35); TOTAL PROTEIN 6.6 GM/DL (6.4-8.2)
[2020-10-25] MEDS: APIXABAN 2.5 MG TAB (ELIQUIS) PO SCH ×2 (08:26→20:09)
[2020-10-25] MEDS: MULTIVITAMINS/MINERALS THERAP 1 TAB PO SCH (08:26)
[2020-10-25] MEDS: HumaLOG INSULIN (NovoLOG) PER UNIT SC SCH ×4 (08:26→20:11)
[2020-10-25] MEDS: FINASTERIDE 5 MG TAB PO SCH (08:26)
[2020-10-25] MEDS: METOPROLOL TART 25 MG TABLET PO SCH ×2 (08:27→20:10)
[2020-10-25] MEDS: PANTOPRAZOLE 40MG TAB (PROTONIX) PO SCH (08:27)
[2020-10-25] MEDS: CILOSTAZOL 100 MG TAB (PLETAL) PO SCH ×2 (08:27→17:01)
[2020-10-25] MEDS: CEPHALEXIN 500 MG CAP PO SCH ×3 (08:27→20:09)
[2020-10-25] MEDS ORDERED: CEPH500C PO (08:55)
[2020-10-25] MEDS ORDERED: ACET325C5 PO (08:57)
[2020-10-25] MEDS: LEVEMIR (INSULIN DETEMIR) 1 UNITS/0.01ML SC SCH ×2 (09:38→20:09)
--- NOTE | 2020-10-25 11:08 | REP ---
INDICATION: PLEASE DO WITHOUT CONTRAST, r/o effusion, fluid collection. COMPARISON: None. TECHNIQUE: Axial noncontrast images through the left knee with coronal and sagittal reformations. FINDINGS: There is small to moderate amount of prepatellar subcutaneous soft tissue swelling and fluid as well as a small joint effusion. The osseous structures demonstrate mild age-related osteopenia and age-related changes without acute or healed injury. Evidence for peripheral vascular disease. IMPRESSION: Subcutaneous infiltration and small prepatellar fluid collection as well as small underlying joint effusion. Findings are nonspecific. <Electronically signed by Bart Ghotra > 10/25/20 [id number]
[2020-10-25 14:00] VITALS: BP 128/64
--- NOTE | 2020-10-25 19:43 | IPNPDOC ---
Date Seen The patient was seen on 10/25/20. Progress Note SUBJECTIVE: Increased pain per patient today, CT left knee showed small-mod soft tissue swelling with small joint effusion. Warmth and tenderness present, unknown if incr, asked nursing to outline with marker. OBJECTIVE: PHYSICAL EXAMINATION: VITAL SIGNS: See below GENERAL APPEARANCE:NAD, resting in Bed HEENT: moist mm , EOM intact, PERRLA NECK: No JVD or cervical lymphadenopathy CARDIOVASCULAR: Normal S1, S2. Regular rate and rhythm. LUNGS: Diminished.no adventitious breath sounds. ABDOMEN:. Soft nondistended, nontender., Positive bowel sounds 4 quadrants MUSCULOSKELETAL: WARMTH, tenderness of left knee. anterior leg with no fluctuance, crepitus, or induration EXTREMITIES: equal pulses in bilateral upper and lower extremities. NEURO: No focal deficits LABORATORY DATA: See below. IMAGING: CT left knee: There is small to moderate amount of prepatellar subcutaneous soft tissue swelling and fluid as well as a small joint effusion. The osseous structures demonstrate mild age-related osteopenia and age-related changes without acute or healed injury. Evidence for peripheral vascular disease. US Duplex Left Lower Extremity Veins, Limited : No sonographic evidence of deep vein thrombosis. Left knee x-ray: Diffuse osteopenia and vascular calcification. Prepatellar soft tissue swelling. No acute bony abnormality. MICROBIOLOGY: Please see below. ASSESSMENT: 89-year-old male with a past medical history significant for hypertension, coronary artery disease status post quadruple bypass, CHF of unclassified type atrial fibrillation who presented to the [facility] emergency department with complaint of left knee swelling and pain. PLAN: Left knee cellulitis -CT knee above -WBC wnl, afebrile but erythema, warmth and pain persists of left knee -On Keflex PO, previously on zosyn and vancomycin -Orthopedic surgery consulted and no surgical need at this time -No signs of joint infection or gout -PT: in more pain and less tolerance for activity; will recommend PT con't to see patient while hospitalized; anticipate D/C home when medically cleared. Chronic Thrombocytopenia -no indication for plt transfusion -no signs of active bleeding Hypertension. -controlled on home meds Diabetes mellitus type 2, uncontrolled -BS uncontrolled -Increased HS levemir and started AM levemir -consistent carbs diet -insulin sliding scale w qach/hs fingersticks with coverage CKD 3 -Cr 1.9, baseline appears to be 1.5-1.6 -avoid nephrotoxins and renally dose medications -strict i/o, daily weights -Daily BMP Congestive heart failure, unknown EF -ECHO since EF not documented -strict i/o, daily weights -monitor for respiratory distress Coronary artery disease/CABG -C/w metoprolol History of stroke -Oral AC Hypothyroidism -Synthroid Peripheral Arterial Disease -Resumed home meds Idiopathic pulmonary fibrosis -Complicating care -Echo to check for pulm HTN and PA pressure measurement Benign prostatic hyperplasia -Resumed on home meds Chronic Atrial fibrillation -On Eliquis, BB Debility -PT/OT DVT px -Eliquis BID DISPOSITION: Worsened knee pain over 24 hrs, monitoring closely as may need to go back on IV abx. May need to consider ID consult. Plan is home when medically improved. Updated daughter, Raven in detail in evening. VS, I&O, 24H, Fishbone Vital Signs/I&O Vital Signs Date Time Temp Pulse Resp B/P (MAP) Pulse Ox O2 Delivery O2 Flow Rate FiO2 10/25/20 14:00 97.5 89 16 128/64 (85) 92 Room Air I&O- Last 24 Hours up to 6 AM 10/25/20 05:59 Intake Total 1190 ml Output Total 0 ml Balance 1190 ml Laboratory Data 24H LABS Laboratory Tests 2 10/24/20 19:49: Bedside Glucose (Misc Panel) 284H 10/25/20 05:53: Nucleated Red Blood Cells % (auto) 0.0, Anion Gap 8, Glomerular Filtration Rate 34.9L, Estimated Mean Plasma Glucose 169H, Hemoglobin A1c 7.5, Calcium Level 9.2, Total Bilirubin 0.3, Aspartate Amino Transf (AST/SGOT) 13, Alanine Aminotransferase (ALT/SGPT) 24, Alkaline Phosphatase 142H, Total Protein 6.6, Albumin 2.4L, Albumin/Globulin Ratio 0.6 10/25/20 11:35: Bedside Glucose (Misc Panel) 153H 10/25/20 16:48: Bedside Glucose (Misc Panel) 149H CBC/BMP Laboratory Tests 10/25/20 05:53 Microbiology Microbiology 10/20/20 Blood Culture - Final, Complete NO GROWTH AFTER 5 DAYS 10/20/20 Blood Culture - Final, Complete NO GROWTH AFTER 5 DAYS Current Medications Current Medications Medications (Trade) Dose Ordered Sig/Mayra Route PRN Reason Start Time Stop Time Status Last Admin Dose Admin Acetaminophen (Tylenol Tab) 650 mg Q4H PRN PO PAIN OR FEVER 10/20/20 21:15 10/25/20 05:03 Apixaban (Eliquis) 2.5 mg BID PO 10/20/20 21:00 10/25/20 08:26 Cadexomer Iodine (Iodosorb Gel) Apply a small giovana... Q2D@0900 TOP 10/24/20 09:00 10/24/20 15:17 Cephalexin Monohydrate (Keflex) 500 mg TID PO 10/24/20 09:00 10/25/20 17:01 Cilostazol (Pletal) 100 mg BID@0730,1730 PO 10/21/20 07:30 10/25/20 17:01 Dextrose (Dextrose 50%) 25 ml ASDIRECTED PRN IV SEE LABEL COMMENTS 10/20/20 22:15 Finasteride (Proscar) 5 mg DAILY PO 10/21/20 09:00 10/25/20 08:26 Glucagon (Glucagon) 1 mg ASDIRECTED PRN SC SEE LABEL COMMENTS 10/20/20 22:15 Glucose (Glucose) 16 GM ASDIRECTED PRN PO SEE LABEL COMMENTS 10/20/20 22:15 Home Med (Med Rec Complete!) ASDIRECTED XX 10/20/20 22:45 10/20/20 23:04 DC Insulin Detemir (Levemir Insulin) 12 units QAM SC 10/25/20 09:00 10/25/20 09:38 Insulin Detemir (Levemir Insulin) 13 units QHS SC 10/21/20 21:00 10/22/20 08:13 DC 10/21/20 20:58 Insulin Detemir (Levemir Insulin) 15 units QHS SC 10/22/20 21:00 10/23/20 08:59 DC 10/22/20 21:45 Insulin Detemir (Levemir Insulin) 18 units QHS SC 10/23/20 21:00 10/24/20 07:43 DC 10/23/20 21:20 Insulin Detemir (Levemir Insulin) 20 units QHS SC 10/24/20 21:00 10/25/20 08:26 DC 10/24/20 21:09 Insulin Detemir (Levemir Insulin) 28 units QHS SC 10/25/20 21:00 Insulin Human Lispro (HumaLOG INSULIN) SEE PROTOCOL TABLE AC SC 10/21/20 07:30 10/25/20 17:02 Insulin Human Lispro (HumaLOG INSULIN) SEE PROTOCOL TABLE QHS SC 10/20/20 21:00 10/24/20 21:09 Levothyroxine Sodium (Synthroid) 75 mcg DAILY@0600 PO 10/21/20 06:00 10/25/20 05:02 Metoprolol Tartrate (Lopressor) 25 mg BID PO 10/20/20 21:00 10/25/20 08:27 Multivitamins (Theragram-M) 1 tab DAILY PO 10/21/20 09:00 10/25/20 08:26 Non-Formulary Medication ( See Comment Field Below ) [facility]. DOSING ASDIRECTED XX 10/21/20 09:00 10/23/20 07:37 DC Pantoprazole Sodium (Protonix) 40 mg DAILY PO 10/21/20 09:00 10/25/20 08:27 Piperacillin Sod/ Tazobactam Sod 2.25 gm/Dextrose 50 ml @ 100 mls/hr Q6H IV 10/21/20 00:00 10/23/20 17:47 DC 10/23/20 17:42 Simvastatin (Zocor) 20 mg QHS PO 10/20/20 21:00 10/24/20 21:07 Sodium Chloride 1,000 ml @ 80 mls/hr [id number] IV 10/20/20 22:15 10/21/20 21:59 DC 10/21/20 08:18 Tamsulosin HCl (Flomax) 0.8 mg QHS PO 10/20/20 21:00 10/24/20 21:07 Vancomycin HCl 1000 mg/IV Miscellaneous Supplies 1 each/ Dextrose 270 ml @ 270 mls/hr Q24H IV 10/23/20 09:00 10/24/20 08:05 DC 10/23/20 08:34 Vancomycin HCl 1300 mg/IV Miscellaneous Supplies 26 ml @ 26 mls/hr Q12H IV 10/20/20 21:15 10/21/20 00:29 DC Allergies Coded Allergies: gabapentin (Verified Allergy, Intermediate, rash, 2/4/21) Deedee Bernstein MD Oct 25, 2020 19:43
[2020-10-25] MEDS: TAMSULOSIN 0.4 MG CAP PO SCH (20:09)
[2020-10-25] MEDS: SIMVASTATIN 20 MG TAB PO SCH (20:10)
[2020-10-25 21:00] VITALS: BP 108/60
[2020-10-26] MEDS: ACETAMINOPHEN TAB 650MG DOSE (2X325MG) PO PRN (05:31)
[2020-10-26] MEDS: LEVOTHYROXINE 75MCG TABLET (0.075MG) PO SCH (05:31)
[2020-10-26 05:48] LABS: HEMATOCRIT 30.9 % (42.0-52.0); MEAN CORPUSCULAR HEMOGLOBIN 31.4 pg (27.0-33.0); MEAN CORPUSCULAR HGB CONC 32.4 g/dl (32.0-36.5); MEAN CORPUSCULAR VOLUME 97.2 fl (80.0-96.0); PLATELET COUNT, AUTOMATED 147 10^3/uL (150-450); RED BLOOD COUNT 3.18 10^6/uL (4.30-6.10); WHITE BLOOD COUNT 8.6 10^3/uL (4.0-10.0)
[2020-10-26 06:00] VITALS: BP 119/66
[2020-10-26 06:10] LABS: ALBUMIN 2.4 GM/DL (3.2-5.2); BILIRUBIN,TOTAL 0.4 MG/DL (0.2-1.0); C REACTIVE PROTEIN QUANTITATIV 5.98 MG/DL (0.00-0.30); CALCIUM LEVEL 8.6 MG/DL (8.8-10.2); CREATININE FOR GFR 1.8 MG/DL (0.70-1.30); GLOMERULAR FILTRATION RATE 38.1 (>35); POTASSIUM SERUM 3.8 MEQ/L (3.5-5.1)
[2020-10-26 07:30] LABS: ERYTHROCYTE SEDIMENTATION RATE 77 mm/hr (0-20)
[2020-10-26] MEDS: METOPROLOL TART 25 MG TABLET PO SCH ×2 (07:54→21:17)
[2020-10-26] MEDS: FINASTERIDE 5 MG TAB PO SCH (07:55)
[2020-10-26] MEDS: PANTOPRAZOLE 40MG TAB (PROTONIX) PO SCH (07:55)
[2020-10-26] MEDS: LACTOBACILLUS ACIDOPHILUS CAP (BACID) PO SCH ×2 (07:55→17:46)
[2020-10-26] MEDS: MULTIVITAMINS/MINERALS THERAP 1 TAB PO SCH (07:55)
[2020-10-26] MEDS: APIXABAN 2.5 MG TAB (ELIQUIS) PO SCH ×2 (07:55→21:17)
[2020-10-26] MEDS: CEPHALEXIN 500 MG CAP PO SCH ×3 (07:55→21:17)
[2020-10-26] MEDS: CILOSTAZOL 100 MG TAB (PLETAL) PO SCH ×2 (07:55→17:46)
[2020-10-26] MEDS: HumaLOG INSULIN (NovoLOG) PER UNIT SC SCH ×4 (08:04→21:00)
[2020-10-26] MEDS: CADEXOMER IODINE 10GM (IODOSORB) GEL TOP SCH (08:05)
[2020-10-26] MEDS: LEVEMIR (INSULIN DETEMIR) 1 UNITS/0.01ML SC SCH ×2 (08:05→21:18)
[2020-10-26 14:00] VITALS: BP 113/65
--- NOTE | 2020-10-26 16:54 | IPNPDOC ---
Date Seen The patient was seen on 10/26/20. Progress Note SUBJECTIVE: Patient is a -year-old [RACE] [GENDER] with OBJECTIVE PHYSICAL EXAMINATION: VITAL SIGNS: Please see below. GENERAL: HEENT: CARDIOVASCULAR: . RESPIRATORY: . ABDOMINAL: EXTREMITIES: NEUROLOGICAL: PSYCHOLOGICAL: LABORATORY DATA, IMAGING STUDIES, MICROBIOLOGY: Please see below. Echocardiogram: . DVT prophylaxis ordered?: ASSESSMENT AND PLAN: This is a -year-old [RACE] [GENDER] with . PROBLEMS: 1. : . 2. : . 3. : . DISPOSITION: . VS, I&O, 24H, Fishbone Vital Signs/I&O Vital Signs Date Time Temp Pulse Resp B/P (MAP) Pulse Ox O2 Delivery O2 Flow Rate FiO2 10/26/20 14:00 97.8 88 20 113/65 (81) 94 10/26/20 06:00 Room Air I&O- Last 24 Hours up to 6 AM 10/26/20 05:59 Intake Total 1450 ml Balance 1450 ml Laboratory Data 24H LABS Laboratory Tests 2 10/25/20 19:33: Bedside Glucose (Misc Panel) 190H 10/26/20 00:35: Bedside Glucose (Misc Panel) 184H 10/26/20 05:30: Nucleated Red Blood Cells % (auto) 0.0, Erythrocyte Sedimentation Rate 77H, Anion Gap 8, Glomerular Filtration Rate 38.1, Calcium Level 8.6L, Total Bilirubin 0.4, Aspartate Amino Transf (AST/SGOT) 13, Alanine Aminotransferase (ALT/SGPT) 23, Alkaline Phosphatase 123H, C-Reactive Protein, Quantitative 5.98H, Total Protein 6.0L, Albumin 2.4L, Albumin/Globulin Ratio 0.7 10/26/20 11:52: Bedside Glucose (Misc Panel) 188H CBC/BMP Laboratory Tests 10/26/20 05:30 Microbiology Microbiology 10/20/20 Blood Culture - Final, Complete NO GROWTH AFTER 5 DAYS 10/20/20 Blood Culture - Final, Complete NO GROWTH AFTER 5 DAYS Deedee Bernstein MD Oct 26, 2020 16:54
--- NOTE | 2020-10-26 18:21 | IPNPDOC ---
Date Seen The patient was seen on 10/26/20. Progress Note SUBJECTIVE: Improved pain and erythema today, to see how he does with PT/OT. No fevers, chills, n/v/d. OBJECTIVE: PHYSICAL EXAMINATION: VITAL SIGNS: See below GENERAL APPEARANCE:NAD, resting in Bed, AAOx 3 HEENT: moist mm , EOM intact, PERRLA NECK: No JVD or cervical lymphadenopathy CARDIOVASCULAR: Normal S1, S2. Regular rate and rhythm. LUNGS: Diminished.no adventitious breath sounds. ABDOMEN:. Soft nondistended, nontender., Positive bowel sounds 4 quadrants MUSCULOSKELETAL: Decreased warmth, tenderness of left knee. anterior leg with no fluctuance, crepitus, or induration EXTREMITIES: equal pulses in bilateral upper and lower extremities. NEURO: No focal deficits LABORATORY DATA: See below. IMAGING: CT left knee: There is small to moderate amount of prepatellar subcutaneous soft tissue swelling and fluid as well as a small joint effusion. The osseous structures demonstrate mild age-related osteopenia and age-related changes without acute or healed injury. Evidence for peripheral vascular disease. US Duplex Left Lower Extremity Veins, Limited : No sonographic evidence of deep vein thrombosis. Left knee x-ray: Diffuse osteopenia and vascular calcification. Prepatellar soft tissue swelling. No acute bony abnormality. MICROBIOLOGY: Please see below. ASSESSMENT: 89-year-old male with a past medical history significant for hypertension, coronary artery disease status post quadruple bypass, CHF of unclassified type atrial fibrillation who presented to the [facility] emergency department with complaint of left knee swelling and pain. PLAN: Left knee cellulitis- improving -CT knee above -WBC wnl, afebrile with improved erythema, warmth and pain -On Keflex PO, previously on zosyn and vancomycin -Orthopedic surgery consulted and no surgical need at this time -No signs of joint infection or gout -F/u PT/OT evaluation today Chronic Thrombocytopenia -no indication for plt transfusion -no signs of active bleeding Hypertension. -controlled on home meds Diabetes mellitus type 2, uncontrolled -BS uncontrolled -Increased HS levemir and started AM levemir -consistent carbs diet -insulin sliding scale w qach/hs fingersticks with coverage CKD 3 -Cr 1.80, baseline appears to be 1.5-1.6 -avoid nephrotoxins and renally dose medications -strict i/o, daily weights -Daily BMP Congestive heart failure, unknown EF -strict i/o, daily weights -monitor for respiratory distress -Consider o/p echo Coronary artery disease/CABG -C/w metoprolol History of stroke -Oral AC Hypothyroidism -Synthroid Peripheral Arterial Disease -Resumed home meds Idiopathic pulmonary fibrosis -Complicating care Benign prostatic hyperplasia -Resumed on home meds Chronic Atrial fibrillation -On Eliquis, BB Debility -PT/OT DVT px -Eliquis BID DISPOSITION: improving knee pain, PT/OT to evaluate again today. Plan is d/c home with daughter when able. VS, I&O, 24H, Fishbone Vital Signs/I&O Vital Signs Date Time Temp Pulse Resp B/P (MAP) Pulse Ox O2 Delivery O2 Flow Rate FiO2 10/26/20 14:00 97.8 88 20 113/65 (81) 94 10/26/20 06:00 Room Air I&O- Last 24 Hours up to 6 AM 10/26/20 05:59 Intake Total 1450 ml Balance 1450 ml Laboratory Data 24H LABS Laboratory Tests 2 10/25/20 19:33: Bedside Glucose (Misc Panel) 190H 10/26/20 00:35: Bedside Glucose (Misc Panel) 184H 10/26/20 05:30: Nucleated Red Blood Cells % (auto) 0.0, Erythrocyte Sedimentation Rate 77H, Anion Gap 8, Glomerular Filtration Rate 38.1, Calcium Level 8.6L, Total Bilirub in 0.4, Aspartate Amino Transf (AST/SGOT) 13, Alanine Aminotransferase (ALT/SGPT) 23, Alkaline Phosphatase 123H, C-Reactive Protein, Quantitative 5.98H, Total Protein 6.0L, Albumin 2.4L, Albumin/Globulin Ratio 0.7 10/26/20 11:52: Bedside Glucose (Misc Panel) 188H 10/26/20 16:57: Bedside Glucose (Misc Panel) 208H CBC/BMP Laboratory Tests 10/26/20 05:30 Microbiology Microbiology 10/20/20 Blood Culture - Final, Complete NO GROWTH AFTER 5 DAYS 10/20/20 Blood Culture - Final, Complete NO GROWTH AFTER 5 DAYS Current Medications Current Medications Medications (Trade) Dose Ordered Sig/Mayra Route PRN Reason Start Time Stop Time Status Last Admin Dose Admin Acetaminophen (Tylenol Tab) 650 mg Q4H PRN PO PAIN OR FEVER 10/20/20 21:15 10/26/20 05:31 Apixaban (Eliquis) 2.5 mg BID PO 10/20/20 21:00 10/26/20 07:55 Cadexomer Iodine (Iodosorb Gel) Apply a small giovana... Q2D@0900 TOP 10/24/20 09:00 10/26/20 08:05 Cephalexin Monohydrate (Keflex) 500 mg TID PO 10/24/20 09:00 10/26/20 17:47 Cilostazol (Pletal) 100 mg BID@0730,1730 PO 10/21/20 07:30 10/26/20 17:46 Dextrose (Dextrose 50%) 25 ml ASDIRECTED PRN IV SEE LABEL COMMENTS 10/20/20 22:15 Finasteride (Proscar) 5 mg DAILY PO 10/21/20 09:00 10/26/20 07:55 Glucagon (Glucagon) 1 mg ASDIRECTED PRN SC SEE LABEL COMMENTS 10/20/20 22:15 Glucose (Glucose) 16 GM ASDIRECTED PRN PO SEE LABEL COMMENTS 10/20/20 22:15 Home Med (Med Rec Complete!) ASDIRECTED XX 10/20/20 22:45 10/20/20 23:04 DC Insulin Detemir (Levemir Insulin) 12 units QAM SC 10/25/20 09:00 10/26/20 08:05 Insulin Detemir (Levemir Insulin) 13 units QHS SC 10/21/20 21:00 10/22/20 08:13 DC 10/21/20 20:58 Insulin Detemir (Levemir Insulin) 15 units QHS SC 10/22/20 21:00 10/23/20 08:59 DC 10/22/20 21:45 Insulin Detemir (Levemir Insulin) 18 units QHS SC 10/23/20 21:00 10/24/20 07:43 DC 10/23/20 21:20 Insulin Detemir (Levemir Insulin) 20 units QHS SC 10/24/20 21:00 10/25/20 08:26 DC 10/24/20 21:09 Insulin Detemir (Levemir Insulin) 28 units QHS SC 10/25/20 21:00 10/25/20 20:09 Insulin Human Lispro (HumaLOG INSULIN) SEE PROTOCOL TABLE AC SC 10/21/20 07:30 10/26/20 17:47 Insulin Human Lispro (HumaLOG INSULIN) SEE PROTOCOL TABLE QHS SC 10/20/20 21:00 10/24/20 21:09 Lactobacillus Acidophilus (Bacid) 1 ea BIDWM PO 10/26/20 08:00 10/26/20 17:46 Levothyroxine Sodium (Synthroid) 75 mcg DAILY@0600 PO 10/21/20 06:00 10/26/20 05:31 Metoprolol Tartrate (Lopressor) 25 mg BID PO 10/20/20 21:00 10/26/20 07:54 Multivitamins (Theragram-M) 1 tab DAILY PO 10/21/20 09:00 10/26/20 07:55 Non-Formulary Medication ( See Comment Field Below ) [facility]. DOSING ASDIRECTED XX 10/21/20 09:00 10/23/20 07:37 DC Pantoprazole Sodium (Protonix) 40 mg DAILY PO 10/21/20 09:00 10/26/20 07:55 Piperacillin Sod/ Tazobactam Sod 2.25 gm/Dextrose 50 ml @ 100 mls/hr Q6H IV 10/21/20 00:00 10/23/20 17:47 DC 10/23/20 17:42 Simvastatin (Zocor) 20 mg QHS PO 10/20/20 21:00 10/25/20 20:10 Sodium Chloride 1,000 ml @ 80 mls/hr [id number] IV 10/20/20 22:15 10/21/20 21:59 DC 10/21/20 08:18 Tamsulosin HCl (Flomax) 0.8 mg QHS PO 10/20/20 21:00 10/25/20 20:09 Vancomycin HCl 1000 mg/IV Miscellaneous Supplies 1 each/ Dextrose 270 ml @ 270 mls/hr Q24H IV 10/23/20 09:00 10/24/20 08:05 DC 10/23/20 08:34 Vancomycin HCl 1300 mg/IV Miscellaneous Supplies 26 ml @ 26 mls/hr Q12H IV 10/20/20 21:15 10/21/20 00:29 DC Allergies Coded Allergies: gabapentin (Verified Allergy, Intermediate, rash, 10/20/20) Deedee Bernstein MD Oct 26, 2020 18:21
[2020-10-26] MEDS: SIMVASTATIN 20 MG TAB PO SCH (21:17)
[2020-10-26] MEDS: TAMSULOSIN 0.4 MG CAP PO SCH (21:17)
[2020-10-26 22:00] VITALS: BP 120/66
[2020-10-27] MEDS: LEVOTHYROXINE 75MCG TABLET (0.075MG) PO SCH (05:48)
[2020-10-27 07:08] LABS: HEMATOCRIT 31.7 % (42.0-52.0); HEMOGLOBIN 10.4 g/dl (13.5-17.5); MEAN CORPUSCULAR HEMOGLOBIN 31.5 pg (27.0-33.0); MEAN CORPUSCULAR HGB CONC 32.8 g/dl (32.0-36.5); MEAN CORPUSCULAR VOLUME 96.1 fl (80.0-96.0); PLATELET COUNT, AUTOMATED 162 10^3/uL (150-450); WHITE BLOOD COUNT 9.8 10^3/uL (4.0-10.0)
[2020-10-27 07:30] LABS: ALBUMIN 2.5 GM/DL (3.2-5.2); BILIRUBIN,TOTAL 0.3 MG/DL (0.2-1.0); CALCIUM LEVEL 8.8 MG/DL (8.8-10.2); CREATININE FOR GFR 1.55 MG/DL (0.70-1.30); GLOMERULAR FILTRATION RATE 45.3 (>35); POTASSIUM SERUM 3.5 MEQ/L (3.5-5.1); TOTAL PROTEIN 6.6 GM/DL (6.4-8.2)
[2020-10-27] MEDS: HumaLOG INSULIN (NovoLOG) PER UNIT SC SCH ×4 (07:30→21:00)
[2020-10-27] MEDS: CILOSTAZOL 100 MG TAB (PLETAL) PO SCH ×2 (07:46→17:03)
[2020-10-27] MEDS: LACTOBACILLUS ACIDOPHILUS CAP (BACID) PO SCH ×2 (07:46→17:03)
[2020-10-27] MEDS: LEVEMIR (INSULIN DETEMIR) 1 UNITS/0.01ML SC SCH ×2 (08:09→21:07)
[2020-10-27 09:15] VITALS: BP 118/72
[2020-10-27] MEDS: APIXABAN 2.5 MG TAB (ELIQUIS) PO SCH ×2 (10:02→21:08)
[2020-10-27] MEDS: MULTIVITAMINS/MINERALS THERAP 1 TAB PO SCH (10:02)
[2020-10-27] MEDS: PANTOPRAZOLE 40MG TAB (PROTONIX) PO SCH (10:02)
[2020-10-27] MEDS: CEPHALEXIN 500 MG CAP PO SCH ×3 (10:03→21:07)
[2020-10-27] MEDS: FINASTERIDE 5 MG TAB PO SCH (10:03)
[2020-10-27] MEDS: METOPROLOL TART 25 MG TABLET PO SCH ×2 (10:05→21:09)
[2020-10-27 14:43] VITALS: BP 107/56
--- NOTE | 2020-10-27 16:57 | IPNPDOC ---
Date Seen The patient was seen on 10/27/20. Progress Note SUBJECTIVE: Dr. Cerda on 10/24/20 requested aspiration of prepatellar bursa so Dr. Suggs was consulted to see today. Improved pain and erythema today, c/w PO abx and PT/OT. No fevers, chills, n/v/d. OBJECTIVE: PHYSICAL EXAMINATION: VITAL SIGNS: See below GENERAL APPEARANCE:NAD, resting in Bed, AAOx 3 HEENT: moist mm , EOM intact, PERRLA NECK: No JVD or cervical lymphadenopathy CARDIOVASCULAR: Normal S1, S2. Regular rate and rhythm. LUNGS: Diminished.no adventitious breath sounds. ABDOMEN:. Soft nondistended, nontender., Positive bowel sounds 4 quadrants MUSCULOSKELETAL: Decreased warmth, tenderness of left knee. No increased knee fluctuance, crepitus, or induration EXTREMITIES: equal pulses in bilateral upper and lower extremities. NEURO: No focal deficits LABORATORY DATA: See below. IMAGING: CT left knee: There is small to moderate amount of prepatellar subcutaneous soft tissue swelling and fluid as well as a small joint effusion. The osseous structures demonstrate mild age-related osteopenia and age-related changes without acute or healed injury. Evidence for peripheral vascular disease. US Duplex Left Lower Extremity Veins, Limited : No sonographic evidence of deep vein thrombosis. Left knee x-ray: Diffuse osteopenia and vascular calcification. Prepatellar soft tissue swelling. No acute bony abnormality. MICROBIOLOGY: Please see below. ASSESSMENT: 89-year-old male with a past medical history significant for hypertension, coronary artery disease status post quadruple bypass, CHF of unclassified type atrial fibrillation who presented to the [facility] emergency department with complaint of left knee swelling and pain. PLAN: Left knee cellulitis, r/o left patellar bursitis -CT knee above -Per Dr. Cerda, left patellar bursa should be drained surgically, needle aspiration is not sufficient. Per notes, initial aspiration done on admission was in the knee joint, not bursa. -WBC wnl, afebrile with improved erythema, warmth and pain -On Keflex PO, previously on zosyn and vancomycin -Orthopedic surgery reconsulted to see -PT/OT Diabetic left great toe ulcer -Per Dr. Cerda, monitor closely -He can f/u with patient after d/c -Wound care per notes Chronic Thrombocytopenia -no indication for plt transfusion -no signs of active bleeding Hypertension. -controlled on home meds Diabetes mellitus type 2, uncontrolled -BS uncontrolled -Increased HS levemir and started AM levemir -consistent carbs diet -insulin sliding scale w qach/hs fingersticks with coverage CKD 3 -Cr 1.55, baseline appears to be 1.5-1.6 -avoid nephrotoxins and renally dose medications -strict i/o, daily weights -Daily BMP Congestive heart failure, unknown EF -strict i/o, daily weights -monitor for respiratory distress -Consider o/p echo Coronary artery disease/CABG -C/w metoprolol History of stroke -Oral AC Hypothyroidism -Synthroid Peripheral Arterial Disease -home meds Idiopathic pulmonary fibrosis -Complicating care Benign prostatic hyperplasia -Resumed on home meds Chronic Atrial fibrillation -On Eliquis, BB Debility -PT/OT DVT px -Eliquis BID DISPOSITION: Dr. Suggs to assess to see if aspiration of left patellar bursa needed. PT/OT and plan is d/c home with daughter still. Updated daughter Razia bright today on plans. VS, I&O, 24H, Fishbone Vital Signs/I&O Vital Signs Date Time Temp Pulse Resp B/P (MAP) Pulse Ox O2 Delivery O2 Flow Rate FiO2 10/27/20 14:43 97.6 84 18 107/56 (73) 91 10/27/20 09:15 Room Air I&O- Last 24 Hours up to 6 AM 10/27/20 06:00 Intake Total 1220 ml Output Total 0 ml Balance 1220 ml Laboratory Data 24H LABS Laboratory Tests 2 10/26/20 16:57: Bedside Glucose (Misc Panel) 208H 10/26/20 20:03: Bedside Glucose (Misc Panel) 220H 10/27/20 06:23: Nucleated Red Blood Cells % (auto) 0.0, Anion Gap 11, Glomerular Filtration Rate 45.3, Calcium Level 8.8, Total Bilirubin 0.3, Aspartate Amino Transf (AST/SGOT) 16, Alanine Aminotransferase (ALT/SGPT) 25, Alkaline Phosphatase 122H, Total Protein 6.6, Albumin 2.5L, Albumin/Globulin Ratio 0.6 10/27/20 11:42: Bedside Glucose (Misc Panel) 257H 10/27/20 16:45: Bedside Glucose (Misc Panel) 208H CBC/BMP Laboratory Tests 10/27/20 06:23 Microbiology Microbiology 10/20/20 Blood Culture - Final, Complete NO GROWTH AFTER 5 DAYS 10/20/20 Blood Culture - Final, Complete NO GROWTH AFTER 5 DAYS Current Medications Current Medications Medications (Trade) Dose Ordered Sig/Mayra Route PRN Reason Start Time Stop Time Status Last Admin Dose Admin Acetaminophen (Tylenol Tab) 650 mg Q4H PRN PO PAIN OR FEVER 10/20/20 21:15 10/26/20 05:31 Apixaban (Eliquis) 2.5 mg BID PO 10/20/20 21:00 10/27/20 10:02 Cadexomer Iodine (Iodosorb Gel) Apply a small giovana... Q2D@0900 TOP 10/24/20 09:00 10/26/20 08:05 Cephalexin Monohydrate (Keflex) 500 mg TID PO 10/24/20 09:00 10/27/20 16:40 Cilostazol (Pletal) 100 mg BID@0730,1730 PO 10/21/20 07:30 10/27/20 07:46 Dextrose (Dextrose 50%) 25 ml ASDIRECTED PRN IV SEE LABEL COMMENTS 10/20/20 22:15 Finasteride (Proscar) 5 mg DAILY PO 10/21/20 09:00 10/27/20 10:03 Glucagon (Glucagon) 1 mg ASDIRECTED PRN SC SEE LABEL COMMENTS 10/20/20 22:15 Glucose (Glucose) 16 GM ASDIRECTED PRN PO SEE LABEL COMMENTS 10/20/20 22:15 Home Med (Med Rec Complete!) ASDIRECTED XX 10/20/20 22:45 10/20/20 23:04 DC Insulin Detemir (Levemir Insulin) 12 units QAM SC 10/25/20 09:00 10/26/20 08:05 Insulin Detemir (Levemir Insulin) 13 units QHS SC 10/21/20 21:00 10/22/20 08:13 DC 10/21/20 20:58 Insulin Detemir (Levemir Insulin) 15 units QHS SC 10/22/20 21:00 10/23/20 08:59 DC 10/22/20 21:45 Insulin Detemir (Levemir Insulin) 18 units QHS SC 10/23/20 21:00 10/24/20 07:43 DC 10/23/20 21:20 Insulin Detemir (Levemir Insulin) 20 units QHS SC 10/24/20 21:00 10/25/20 08:26 DC 10/24/20 21:09 Insulin Detemir (Levemir Insulin) 28 units QHS SC 10/25/20 21:00 10/26/20 21:18 Insulin Human Lispro (HumaLOG INSULIN) SEE PROTOCOL TABLE AC SC 10/21/20 07:30 10/27/20 11:49 Insulin Human Lispro (HumaLOG INSULIN) SEE PROTOCOL TABLE QHS SC 10/20/20 21:00 10/24/20 21:09 Lactobacillus Acidophilus (Bacid) 1 ea BIDWM PO 10/26/20 08:00 10/27/20 07:46 Levothyroxine Sodium (Synthroid) 75 mcg DAILY@0600 PO 10/21/20 06:00 10/27/20 05:48 Metoprolol Tartrate (Lopressor) 25 mg BID PO 10/20/20 21:00 10/27/20 10:05 Multivitamins (Theragram-M) 1 tab DAILY PO 10/21/20 09:00 10/27/20 10:02 Non-Formulary Medication ( See Comment Field Below ) [facility]. DOSING ASDIRECTED XX 10/21/20 09:00 10/23/20 07:37 DC Pantoprazole Sodium (Protonix) 40 mg DAILY PO 10/21/20 09:00 10/27/20 10:02 Piperacillin Sod/ Tazobactam Sod 2.25 gm/Dextrose 50 ml @ 100 mls/hr Q6H IV 10/21/20 00:00 10/23/20 17:47 DC 10/23/20 17:42 Simvastatin (Zocor) 20 mg QHS PO 10/20/20 21:00 10/26/20 21:17 Sodium Chloride 1,000 ml @ 80 mls/hr [id number] IV 10/20/20 22:15 10/21/20 21:59 DC 10/21/20 08:18 Tamsulosin HCl (Flomax) 0.8 mg QHS PO 10/20/20 21:00 10/26/20 21:17 Vancomycin HCl 1000 mg/IV Miscellaneous Supplies 1 each/ Dextrose 270 ml @ 270 mls/hr Q24H IV 10/23/20 09:00 10/24/20 08:05 DC 10/23/20 08:34 Vancomycin HCl 1300 mg/IV Miscellaneous Supplies 26 ml @ 26 mls/hr Q12H IV 10/20/20 21:15 10/21/20 00:29 DC Allergies Coded Allergies: gabapentin (Verified Allergy, Intermediate, rash, 10/20/20) Deedee Bernstein MD Oct 27, 2020 16:57
[2020-10-27] MEDS: SIMVASTATIN 20 MG TAB PO SCH (21:08)
[2020-10-27] MEDS: TAMSULOSIN 0.4 MG CAP PO SCH (21:08)
[2020-10-27 22:00] VITALS: BP 138/76
[2020-10-28 06:00] VITALS: BP 112/57
[2020-10-28 06:15] LABS: HEMATOCRIT 31.1 % (42.0-52.0); HEMOGLOBIN 10.2 g/dl (13.5-17.5); MEAN CORPUSCULAR HEMOGLOBIN 31.6 pg (27.0-33.0); MEAN CORPUSCULAR HGB CONC 32.8 g/dl (32.0-36.5); MEAN CORPUSCULAR VOLUME 96.3 fl (80.0-96.0); PLATELET COUNT, AUTOMATED 176 10^3/uL (150-450); RED BLOOD COUNT 3.23 10^6/uL (4.30-6.10); WHITE BLOOD COUNT 10.2 10^3/uL (4.0-10.0)
[2020-10-28 06:45] LABS: ALBUMIN 2.3 GM/DL (3.2-5.2); BILIRUBIN,TOTAL 0.3 MG/DL (0.2-1.0); CALCIUM LEVEL 8.5 MG/DL (8.8-10.2); CREATININE FOR GFR 1.52 MG/DL (0.70-1.30); GLOMERULAR FILTRATION RATE 46.3 (>35); POTASSIUM SERUM 3.6 MEQ/L (3.5-5.1); TOTAL PROTEIN 6.4 GM/DL (6.4-8.2)
[2020-10-28] MEDS: LEVOTHYROXINE 75MCG TABLET (0.075MG) PO SCH (07:03)
[2020-10-28] MEDS: LEVEMIR (INSULIN DETEMIR) 1 UNITS/0.01ML SC SCH ×2 (09:11→20:51)
[2020-10-28] MEDS: PANTOPRAZOLE 40MG TAB (PROTONIX) PO SCH (09:11)
[2020-10-28] MEDS: HumaLOG INSULIN (NovoLOG) PER UNIT SC SCH ×4 (09:11→20:50)
[2020-10-28] MEDS: APIXABAN 2.5 MG TAB (ELIQUIS) PO SCH ×2 (09:11→20:50)
[2020-10-28] MEDS: MULTIVITAMINS/MINERALS THERAP 1 TAB PO SCH (09:12)
[2020-10-28] MEDS: CEPHALEXIN 500 MG CAP PO SCH ×3 (09:12→20:51)
[2020-10-28] MEDS: LACTOBACILLUS ACIDOPHILUS CAP (BACID) PO SCH ×2 (09:12→17:24)
[2020-10-28] MEDS: CILOSTAZOL 100 MG TAB (PLETAL) PO SCH ×2 (09:12→17:24)
[2020-10-28] MEDS: FINASTERIDE 5 MG TAB PO SCH (09:14)
[2020-10-28] MEDS: METOPROLOL TART 25 MG TABLET PO SCH ×2 (09:14→20:51)
[2020-10-28] MEDS: CADEXOMER IODINE 10GM (IODOSORB) GEL TOP SCH (09:16)
--- NOTE | 2020-10-28 09:31 | CR ---
CONSULTATION DATE: 10/27/2020 CONSULTING SERVICE: Orthopedic Surgery. CONSULTING PHYSICIAN: Chris Elizabeth M.D. HISTORY OF PRESENT ILLNESS: This is an 89-year-old male who is a community ambulator who has had six days of improving left knee prepatellar bursitis with some pain with passive and active extension. Patient denies pain to axial load. He presented to [facility] six days prior for what appeared to be left knee prepatellar cellulitis, however has consolidated and now appears to be an isolated very small fluid collection which has become a prepatellar bursitis. In order to accelerate timely healing, Orthopedic Surgery was consulted and the prepatellar bursitis was aspirated and sent for cultures. PAST MEDICAL HISTORY: 1. Coronary artery disease. 2. Congestive heart failure. 3. Diabetes. 4. Hypertension. 5. Stroke. 6. Pulmonary fibrosis. 7. Hypothyroidism. PAST SURGICAL HISTORY: 1. Carotid endarterectomy. 2. Coronary artery bypass graft. 3. Right hallux amputation. ALLERGIES: Denies. CURRENT MEDICATIONS: Please see Hospitalist intake. SOCIAL HISTORY: The patient is a nonsmoker, nondrinker, non-IV drug user. REVIEW OF SYSTEMS: A 14 point review of systems is negative unless otherwise described in the HPI above. PHYSICAL EXAMINATION: The patient is alert to person, time and place. Left lower extremity: The patient had a much smaller area of cellulitic erythema which is likely a prepatellar bursitis located just overlying the patella, this is significantly reduced since his last examination six days prior. The patient had a 2+ dorsalis pedis and posterior tibial arterial pulse. Brisk capillary refill to the digits of his left foot with a warm and well-perfused foot with 5/5 motor strength of the EHL, FHL, tibialis anterior, gastroc-soleus and peroneal musculature. He has sensation intact to light touch to deep and superficial peroneal, sural, saphenous and tibial nerve distributions. Patient denied pain with an axial load of the left lower extremity. IMAGING DATA: CT scan of the patient's left knee demonstrated very small, under 3 ml fluid collection in the prepatellar area, this is likely indicative of a very small prepatellar bursitis. LABORATORY DATA: Prepatellar aspiration pending cultures. Not enough fluid for a white blood cell count. The fluid drawn is under 1 ml. IMPRESSION: An 89-year-old male with left knee prepatellar bursitis which is improving since his last Ortho consultation six days prior. The patient does not have a left septic knee at this point. PROCEDURE: The patient's left prepatellar bursitis was aspirated using a 3 mm syringe 18 gauge needle. This is introduced overlying the patella and under 1 ml of fluid was drawn. Patient was counseled on risks and benefits of aspiration including ruling out a septic prepatellar bursitis. Patient agreed. PLAN: At this point in time the patient has a left knee prepatellar bursitis. Patient is currently on p.o. antibiotics, however I would recommend IV antibiotics in order to accelerate the patient's recovery from his prepatellar bursitis if the patient is able to tolerate such. This does not need surgical intervention at this time as prepatellar bursitis rarely does involve any surgery. However, it does involve either IV or p.o. antibiotics whatever the patient can tolerate. The patient's effusion overlying the patella in the prepatellar region is sent for cultures in order to help identify and speciate the patient's possible septic prepatellar bursitis. This patient could also have aseptic prepatellar bursitis, however, hopefully the cultures further characterize the patient's septic versus aseptic prepatellar bursitis status. Thank you for this interesting consult. Please call us with any questions.
--- NOTE | 2020-10-28 09:50 | REP ---
INDICATION: lower O2 sat. COMPARISON: Comparison chest x-ray 20 November 2018. TECHNIQUE: Two views.. FINDINGS: Median sternotomy wires are noted. A loop recorder is seen projecting in the left precordium. There is some coronary artery vascular calcification and/or stent material. Heart size is unchanged. There is diffuse interstitial lung disease moderate in degree also unchanged from the November 20, 2018 prior study consistent with interstitial fibrosis. No acute infiltrate is appreciated. IMPRESSION: Moderate to advanced diffuse interstitial fibrosis pattern. Prior sternotomy. No acute changes.. <Electronically signed by Jorge Pagan > 10/28/20 [id number]
--- NOTE | 2020-10-28 14:23 | IPNPDOC ---
Date Seen The patient was seen on 10/28/20. Progress Note SUBJECTIVE: Lower than normal O2 today at 90% on RA, recent COVID exposure on 10/24/20 so rapid test ordered. Left knee appears improved today, s/p L patellar bursa aspiration by Dr. Glenn barba on 10/27/20, cx pending. PT: ok to go home with daughter when medically cleared. Denies chills, fevers, shortness of breah, fevers, n/v/d. OBJECTIVE: PHYSICAL EXAMINATION: VITAL SIGNS: See below GENERAL APPEARANCE:NAD, resting in Bed, AAOx 3 HEENT: moist mm , EOM intact, PERRLA NECK: No JVD or cervical lymphadenopathy CARDIOVASCULAR: Normal S1, S2. Regular rate and rhythm. LUNGS: Diminished b/l . no adventitious breath sounds. ABDOMEN:. Soft nondistended, nontender., Positive bowel sounds 4 quadrants MUSCULOSKELETAL: Decreased warmth, tenderness of left knee. No increased knee fluctuance, crepitus, or induration EXTREMITIES: equal pulses in bilateral upper and lower extremities. NEURO: No focal deficits LABORATORY DATA: See below. IMAGING: CXR 09/27/20: Moderate to advanced diffuse interstitial fibrosis pattern. Prior sternotomy. No acute changes. CT left knee: There is small to moderate amount of prepatellar subcutaneous soft tissue swelling and fluid as well as a small joint effusion. The osseous structures demonstrate mild age-related osteopenia and age-related changes without acute or healed injury. Evidence for peripheral vascular disease. US Duplex Left Lower Extremity Veins, Limited : No sonographic evidence of deep vein thrombosis. Left knee x-ray: Diffuse osteopenia and vascular calcification. Prepatellar soft tissue swelling. No acute bony abnormality. MICROBIOLOGY: Left patellar bursa cx: pending ASSESSMENT: 89-year-old male with a past medical history significant for hypertension, coronary artery disease status post quadruple bypass, CHF of unclassified type atrial fibrillation who presented to the [facility] emergency department with complaint of left knee swelling and pain. PLAN: Left knee cellulitis, r/o left patellar bursitis -CT knee above -Per Dr. Cerda, left patellar bursa should be drained surgically, needle aspiration is not sufficient. Per notes, initial aspiration done on admission was in the knee joint, not bursa. -WBC wnl, afebrile with improved erythema, warmth and pain -Orthopedic surgery, Dr. Lara aspirated left knee bursa, cx pending -C/w Keflex PO and f/u cx report/sensitivities prior to discharge , previously on zosyn and vancomycin -PT/OT with plan to discharge home with daughter COVID-19 exposure by staff -F/u testing for COVID 19 -Proper precautions placed Low O2 saturation -No increased SOB, cough, fever, chills -F/u COVID-19 testing above -CXR this AM: Moderate to advanced diffuse interstitial fibrosis pattern- likely all chronic -Monitor closely Diabetic left great toe ulcer -Per Dr. Cerda, monitor closely -He can f/u with patient after d/c -Wound care per notes Chronic Thrombocytopenia -no indication for plt transfusion -no signs of active bleeding Hypertension. -controlled on home meds Diabetes mellitus type 2, uncontrolled -BS better controlled -C/w levemir BID, consistent carb diet, insulin sliding scale w qach/hs fingersticks with coverage CKD 3 -Cr 1.52, baseline appears to be 1.5-1.6 -avoid nephrotoxins and renally dose medications -strict i/o, daily weights -Daily BMP Congestive heart failure, unknown EF -strict i/o, daily weights -monitor for respiratory distress -Consider o/p echo Coronary artery disease/CABG -C/w metoprolol History of stroke -Oral AC Hypothyroidism -Synthroid Peripheral Arterial Disease -home meds Idiopathic pulmonary fibrosis -Complicating care Benign prostatic hyperplasia -Resumed on home meds Chronic Atrial fibrillation -On Eliquis, BB Debility -PT/OT DVT px -Eliquis BID DISPOSITION: Dr. Suggs to assess to see if aspiration of left patellar bursa needed. PT/OT and plan is d/c home with daughter still. Updated daughter Raven today on plans. VS, I&O, 24H, Fishbone Vital Signs/I&O Vital Signs Date Time Temp Pulse Resp B/P (MAP) Pulse Ox O2 Delivery O2 Flow Rate FiO2 10/28/20 09:14 96 125/71 10/28/20 06:00 98.3 18 89 Room Air I&O- Last 24 Hours up to 6 AM 10/28/20 06:00 Intake Total 1440 ml Output Total 0 ml Balance 1440 ml Laboratory Data 24H LABS Laboratory Tests 2 10/27/20 16:45: Bedside Glucose (Misc Panel) 208H 10/27/20 20:39: Bedside Glucose (Misc Panel) 250H 10/28/20 05:46: Nucleated Red Blood Cells % (auto) 0.0, Anion Gap 8, Glomerular Filtration Rate 46.3, Calcium Level 8.5L, Total Bilirubin 0.3, Aspartate Amino Transf (AST/SGOT) 15, Alanine Aminotransferase (ALT/SGPT) 24, Alkaline Phosphatase 128H, Total Protein 6.4, Albumin 2.3L, Albumin/Globulin Ratio 0.6 10/28/20 11:44: Bedside Glucose (Misc Panel) 186H 10/28/20 13:41: CBC/BMP Laboratory Tests 10/28/20 05:46 Microbiology Microbiology 10/27/20 Gram Stain - Final, Resulted 10/27/20 Abscess Culture, Resulted Pending 10/20/20 Blood Culture - Final, Complete NO GROWTH AFTER 5 DAYS 10/20/20 Blood Culture - Final, Complete NO GROWTH AFTER 5 DAYS Current Medications Current Medications Medications (Trade) Dose Ordered Sig/Mayra Route PRN Reason Start Time Stop Time Status Last Admin Dose Admin Acetaminophen (Tylenol Tab) 650 mg Q4H PRN PO PAIN OR FEVER 10/20/20 21:15 10/26/20 05:31 Apixaban (Eliquis) 2.5 mg BID PO 10/20/20 21:00 10/28/20 09:11 Cadexomer Iodine (Iodosorb Gel) Apply a small giovana... Q2D@0900 TOP 10/24/20 09:00 10/28/20 09:16 Cephalexin Monohydrate (Keflex) 500 mg TID PO 10/24/20 09:00 10/28/20 09:12 Cilostazol (Pletal) 100 mg BID@0730,1730 PO 10/21/20 07:30 10/28/20 09:12 Dextrose (Dextrose 50%) 25 ml ASDIRECTED PRN IV SEE LABEL COMMENTS 10/20/20 22:15 Finasteride (Proscar) 5 mg DAILY PO 10/21/20 09:00 10/28/20 09:14 Glucagon (Glucagon) 1 mg ASDIRECTED PRN SC SEE LABEL COMMENTS 10/20/20 22:15 Glucose (Glucose) 16 GM ASDIRECTED PRN PO SEE LABEL COMMENTS 10/20/20 22:15 Home Med (Med Rec Complete!) ASDIRECTED XX 10/20/20 22:45 10/20/20 23:04 DC Insulin Detemir (Levemir Insulin) 12 units QAM LA 10/25/20 09:00 10/28/20 09:11 Insulin Detemir (Levemir Insulin) 13 units QHS SC 10/21/20 21:00 10/22/20 08:13 DC 10/21/20 20:58 Insulin Detemir (Levemir Insulin) 15 units QHS LA 10/22/20 21:00 10/23/20 08:59 DC 10/22/20 21:45 Insulin Detemir (Levemir Insulin) 18 units QHS LA 10/23/20 21:00 10/24/20 07:43 DC 10/23/20 21:20 Insulin Detemir (Levemir Insulin) 20 units QHS LA 10/24/20 21:00 10/25/20 08:26 DC 10/24/20 21:09 Insulin Detemir (Levemir Insulin) 28 units QHS LA 10/25/20 21:00 10/27/20 21:07 Insulin Human Lispro (HumaLOG INSULIN) SEE PROTOCOL TABLE AC SC 10/21/20 07:30 10/28/20 12:45 Insulin Human Lispro (HumaLOG INSULIN) SEE PROTOCOL TABLE QHS LA 10/20/20 21:00 10/24/20 21:09 Lactobacillus Acidophilus (Bacid) 1 ea BIDWM PO 10/26/20 08:00 10/28/20 09:12 Levothyroxine Sodium (Synthroid) 75 mcg DAILY@0600 PO 10/21/20 06:00 10/28/20 07:03 Metoprolol Tartrate (Lopressor) 25 mg BID PO 10/20/20 21:00 10/28/20 09:14 Multivitamins (Theragram-M) 1 tab DAILY PO 10/21/20 09:00 10/28/20 09:12 Non-Formulary Medication ( See Comment Field Below ) [facility]. DOSING ASDIRECTED XX 10/21/20 09:00 10/23/20 07:37 DC Pantoprazole Sodium (Protonix) 40 mg DAILY PO 10/21/20 09:00 10/28/20 09:11 Piperacillin Sod/ Tazobactam Sod 2.25 gm/Dextrose 50 ml @ 100 mls/hr Q6H IV 10/21/20 00:00 10/23/20 17:47 DC 10/23/20 17:42 Simvastatin (Zocor) 20 mg QHS PO 10/20/20 21:00 10/27/20 21:08 Sodium Chloride 1,000 ml @ 80 mls/hr [id number] IV 10/20/20 22:15 10/21/20 21:59 DC 10/21/20 08:18 Tamsulosin HCl (Flomax) 0.8 mg QHS PO 10/20/20 21:00 10/27/20 21:08 Vancomycin HCl 1000 mg/IV Miscellaneous Supplies 1 each/ Dextrose 270 ml @ 270 mls/hr Q24H IV 10/23/20 09:00 10/24/20 08:05 DC 10/23/20 08:34 Vancomycin HCl 1300 mg/IV Miscellaneous Supplies 26 ml @ 26 mls/hr Q12H IV 10/20/20 21:15 10/21/20 00:29 DC Allergies Coded Allergies: gabapentin (Verified Allergy, Intermediate, rash, 10/20/20) Deedee Bernstein MD Oct 28, 2020 14:23
[2020-10-28 14:31] VITALS: BP 123/67
[2020-10-28] MEDS: ACETAMINOPHEN TAB 650MG DOSE (2X325MG) PO PRN (20:50)
[2020-10-28] MEDS: TAMSULOSIN 0.4 MG CAP PO SCH (20:51)
[2020-10-28] MEDS: SIMVASTATIN 20 MG TAB PO SCH (20:51)
[2020-10-28 22:00] VITALS: BP 106/43
[2020-10-29] MEDS: LEVOTHYROXINE 75MCG TABLET (0.075MG) PO SCH (05:43)
[2020-10-29 06:00] VITALS: BP 126/66
[2020-10-29 07:17] LABS: HEMATOCRIT 30.1 % (42.0-52.0); HEMOGLOBIN 10.1 g/dl (13.5-17.5); MEAN CORPUSCULAR HEMOGLOBIN 32.1 pg (27.0-33.0); MEAN CORPUSCULAR HGB CONC 33.6 g/dl (32.0-36.5); MEAN CORPUSCULAR VOLUME 95.6 fl (80.0-96.0); PLATELET COUNT, AUTOMATED 178 10^3/uL (150-450); RED BLOOD COUNT 3.15 10^6/uL (4.30-6.10); WHITE BLOOD COUNT 9.9 10^3/uL (4.0-10.0)
[2020-10-29 07:43] LABS: ALBUMIN 2.3 GM/DL (3.2-5.2); BILIRUBIN,TOTAL 0.4 MG/DL (0.2-1.0); CALCIUM LEVEL 8.4 MG/DL (8.8-10.2); CREATININE FOR GFR 1.49 MG/DL (0.70-1.30); GLOMERULAR FILTRATION RATE 47.4 (>35); POTASSIUM SERUM 3.7 MEQ/L (3.5-5.1); TOTAL PROTEIN 5.8 GM/DL (6.4-8.2)
[2020-10-29] MEDS: LEVEMIR (INSULIN DETEMIR) 1 UNITS/0.01ML SC SCH (09:00)
[2020-10-29] MEDS: CEPHALEXIN 500 MG CAP PO SCH (09:01)
[2020-10-29] MEDS: MULTIVITAMINS/MINERALS THERAP 1 TAB PO SCH (09:01)
[2020-10-29] MEDS: APIXABAN 2.5 MG TAB (ELIQUIS) PO SCH (09:01)
[2020-10-29] MEDS: FINASTERIDE 5 MG TAB PO SCH (09:01)
[2020-10-29] MEDS: HumaLOG INSULIN (NovoLOG) PER UNIT SC SCH ×2 (09:01→13:04)
[2020-10-29] MEDS: LACTOBACILLUS ACIDOPHILUS CAP (BACID) PO SCH (09:01)
[2020-10-29] MEDS: PANTOPRAZOLE 40MG TAB (PROTONIX) PO SCH (09:01)
[2020-10-29 09:02] VITALS: BP 128/74
[2020-10-29] MEDS: CILOSTAZOL 100 MG TAB (PLETAL) PO SCH (09:02)
[2020-10-29] MEDS: METOPROLOL TART 25 MG TABLET PO SCH (09:02)
--- NOTE | 2020-10-29 16:28 | DS.PDOC ---
Discharge Summary General Date of Admission Oct 20, 2020 at 21:40 Date of Discharge 10/29/20 Attending Physician: Deedee Bernstein MD Discharge Summary HISTORY OF PRESENT ILLNESS: Pt is an 89-year-old male with past medical history significant for hypertension, diabetes mellitus type 2, CAD with quadruple bypass, Idiopathic pulmonary fibrosis, and stroke who presented to the [facility] emergency department with complaint of left knee pain. Patient stated that a few days ago he noticed some redness and swelling on his knee. He stated that it was only mildly discomforting. He stated that over the last couple days he had worsening pain in his left knee as well as difficulty with ambulation due to the pain. He denies any fevers, chills, nausea, vomiting. Denies any trauma to the knee. He denies any recent procedures to the knee as well. On presentation to the emergency department the patient was vitally stable. An x-ray of the knee was obtained which demonstrated diffuse osteopenia vascular calcifications as well as prepatellar soft tissue swelling but no acute bony abnormality. Vascular ultrasound was also obtained to the ED which did not demonstrate any DVT. With a surgeon, Dr. Elizabeth was contacted to the emergency department and saw the patient. Aspiration of the knee was performed to rule out septic arthritis. Synovial fluid white blood cell count was only 350. Hospitalist service was then consulted for further evaluation management of the patient's left knee cellulitis. HOSPITAL COURSE: There was a concern for left knee cellulitis, r/o left patellar bursitis per Dr. Cerda (custom framing specialist who was consulted). CT knee showed soft tissue swelling. Left patellar bursa was aspirated by orthopedic surgery with no organisms seen on GS, culture is pending still. He was previously on zosyn and vancomycin before finally putting on PO keflex. With PO keflex we saw his left knee swelling markedly improve. WBC wnl, afebrile with improved erythema, warmth and pain. PT/OT: Ok for patient to be discharged home with daughter, walker and o/p PT/OT. He did have some low O2 saturation and COVID-19 exposure by staff but COVID 19 testing neg. CXR showed moderate to advanced diffuse interstitial fibrosis pattern- likely all chronic . Advised for him to follow up with his PCP, currently saturating well on RA. Per Dr. Cerda in regards to diabetic left great toe ulcer, monitor closely,keep clean and f/u with him as o/p. Other chronic issues remained stable. On 10/29/20 he was discharged home with PO abx in care of his daughter. PAST MEDICAL HISTORY: 1. Hypertension. 2.. Diabetes mellitus type 2. 3. Chronic kidney disease dates IIIB. 4. Congestive heart failure. Unclear whether diastolic versus systolic. No echocardiogram on record. 5. Coronary artery disease with history of quadruple bypass. 6. History of stroke 7. Idiopathic pulmonary fibrosis. 8. Benign prostatic hyperplasia 9. Atrial fibrillation on Eliquis PAST SURGICAL HISTORY: 1. Quadruple bypass. 2. Right toe amputation. SOCIAL HISTORY: Patient was at home with his daughter who helps care for him. He had a total is now without a cane or walker. Denies any falls in the past year. He is a former smoker. He quit approximately 20 years ago. At the time he smoked 1-1/2 packs per day. Patient denies any alcohol use currently. He states that he was a heavy alcohol user. He quit alcohol approximately 25 years ago. He denies any history of IV or illicit drug use. FAMILY HISTORY: Patient's father and mother both of coronary artery disease. His mother also had diabetes. ALLERGIES: Please see below. DISCHARGE MEDICATIONS: Please see below. PHYSICAL EXAMINATION: VITAL SIGNS: See below GENERAL APPEARANCE:NAD, resting in Bed, AAOx 3 HEENT: moist mm , EOM intact, PERRLA NECK: No JVD or cervical lymphadenopathy CARDIOVASCULAR: Normal S1, S2. Regular rate and rhythm. LUNGS: Diminished b/l . no adventitious breath sounds. ABDOMEN:. Soft nondistended, nontender., Positive bowel sounds 4 quadrants MUSCULOSKELETAL: Decreased warmth, tenderness of left knee. No increased knee fluctuance, crepitus, or induration EXTREMITIES: equal pulses in bilateral upper and lower extremities. left great toe covered in bandage NEURO: No focal deficits LABORATORY DATA: See below. IMAGING: CXR 09/27/20: Moderate to advanced diffuse interstitial fibrosis pattern. Prior sternotomy. No acute changes. CT left knee: There is small to moderate amount of prepatellar subcutaneous soft tissue swelling and fluid as well as a small joint effusion. The osseous structures demonstrate mild age-related osteopenia and age-related changes without acute or healed injury. Evidence for peripheral vascular disease. US Duplex Left Lower Extremity Veins, Limited : No sonographic evidence of deep vein thrombosis. Left knee x-ray: Diffuse osteopenia and vascular calcification. Prepatellar soft tissue swelling. No acute bony abnormality. MICROBIOLOGY: Left patellar bursa cx: pending ASSESSMENT: 89-year-old male with a past medical history significant for hypertension, coronary artery disease status post quadruple bypass, CHF of unclassified type atrial fibrillation who presented to the [facility] emergency department with complaint of left knee swelling and pain. PLAN: Left knee cellulitis, r/o left patellar bursitis -CT knee above -Per Dr. Cerda, left patellar bursa should be drained surgically, needle aspiration is not sufficient. Per notes, initial aspiration done on admission was in the knee joint, not bursa. -WBC wnl, afebrile with improved erythema, warmth and pain -Orthopedic surgery, 10/27/20 Dr. Lara aspirated left knee bursa, fluid GS was neg, fluid cx pending -C/w Keflex PO as he is showing improvement. If cx report comes back sensitive to something other than keflex, will call family and send in replacement. HE was previously on zosyn and vancomycin here -PT/OT: walker, o/p PT/OT, discharge home with daughter COVID-19 exposure by staff -COVID 19 tesing neg Chronic diffuse interstitial/pulmonary fibrosis -Low O2 saturation- resolved, saturating well on RA -No increased SOB, cough, fever, chills -COVID-19 testing neg -CXR : Moderate to advanced diffuse interstitial fibrosis pattern- likely all chronic -Monitor closely by PCP Diabetic left great toe ulcer -Per Dr. Cerda, monitor closely -He can f/u with patient after d/c Chronic Thrombocytopenia -no indication for plt transfusion -no signs of active bleeding Hypertension. -controlled on home meds Diabetes mellitus type 2, uncontrolled -BS better controlled -C/w lhome regimen, consistent carb diet CKD 3 -Cr 1.49, baseline appears to be 1.5-1.6 -avoid nephrotoxins and renally dose medications -strict i/o, daily weights Congestive heart failure, unknown EF -strict i/o, daily weights -monitor for respiratory distress -Consider o/p echo Coronary artery disease/CABG -C/w metoprolol History of stroke -Oral AC Hypothyroidism -Synthroid Peripheral Arterial Disease -home meds Benign prostatic hyperplasia -Resumed on home meds Chronic Atrial fibrillation -On Eliquis, BB Debility -PT/OT DVT px -Eliquis BID DISPOSITION: F/u with PCP, Dr. Cerda (wound care) after discharge. TIME SPENT ON DISCHARGE: 30 minutes. Vital Signs/I&Os Vital Signs Date Time Temp Pulse Resp B/P (MAP) Pulse Ox O2 Delivery O2 Flow Rate FiO2 10/29/20 09:02 89 128/74 10/29/20 06:00 98.1 18 92 Room Air I&O- Last 24 Hours up to 6 AM 10/29/20 06:00 Intake Total 1620 ml Output Total 0 ml Balance 1620 ml Laboratory Data Labs 24H Laboratory Tests 2 10/28/20 16:29: Bedside Glucose (Misc Panel) 223H 10/28/20 19:51: Bedside Glucose (Misc Panel) 277H 10/29/20 06:57: Nucleated Red Blood Cells % (auto) 0.0, Anion Gap 10, Glomerular Filtration Rate 47.4, Calcium Level 8.4L, Total Bilirubin 0.4, Aspartate Amino Transf (AST/SGOT) 15, Alanine Aminotransferase (ALT/SGPT) 24, Alkaline Phosphatase 137H, Total Protein 5.8L, Albumin 2.3L, Albumin/Globulin Ratio 0.7 CBC/BMP Laboratory Tests 10/29/20 06:57 FSBS Laboratory Tests Test 10/28/20 16:29 10/28/20 19:51 Range/Units Bedside Glucose (Misc Panel) 223 277 83-110 MG/DL Microbiology Microbiology 10/27/20 Gram Stain - Final, Resulted 10/27/20 Abscess Culture, Resulted Pending 10/20/20 Blood Culture - Final, Complete NO GROWTH AFTER 5 DAYS 10/20/20 Blood Culture - Final, Complete NO GROWTH AFTER 5 DAYS Discharge Medications Scheduled Apixaban (Eliquis) 2.5 Mg Tab, 2.5 MG PO BID, (Reported) Cephalexin (Cephalexin) 500 Mg Capsule, 500 MG PO TID Cholecalciferol (Vitamin D3) (Vitamin D3) 50 Mcg Tablet, 50 MCG PO DAILY, (Reported) TAKES AT LUNCHTIME Cilostazol (Cilostazol) 100 Mg Tab, 100 MG PO BID, (Reported) Finasteride (Finasteride) 5 Mg Tablet, 5 MG PO DAILY, (Reported) Insulin Glargine,Hum.rec.anlog (Basaglar Kwikpen U-100) 100 Unit/Ml Inj, 32 UNIT SC QHS, (Reported) Insulin Human Lispro (Humalog) 100 Unit/1 Ml Vial, 6 UNITS SC DAILY, (Reported) TAKES AT LUNCH Insulin Lispro (Humalog) 100 Unit/Ml Inj, 1 DOSE SC WM, (Reported) PER SLIDING SCALE Insulin Lispro (Humalog) 100 Unit/Ml Inj, 5 UNITS SC BID, (Reported) BREAKFAST AND DINNER Levothyroxine Sodium (Synthroid) 75 Mcg Tablet, 75 MCG PO DAILY, (Reported) Metoprolol Tartrate (Metoprolol Tartrate) 25 Mg Tablet, 25 MG PO BID, (Reported) Multivitamins (Thera M Plus Tablet) 1 Tab Tab, 1 TAB PO DAILY, (Reported) Pantoprazole Sodium (Pantoprazole Sodium) 40 Mg Tab, 40 MG PO DAILY, (Reported) Potassium Chloride (Potassium Chloride) 20 Meq Tab, 20 MEQ PO DAILY, (Reported) Simvastatin (Simvastatin) 20 Mg Tab, 20 MG PO QHS, (Reported) Spironolactone (Spironolactone) 25 Mg Tab, 12.5 MG PO DAILY, (Reported) Tamsulosin HCl (Flomax) 0.4 Mg Cap, 0.8 MG PO QHS, (Reported) Torsemide (Torsemide) 20 Mg Tablet, 20 MG PO DAILY, (Reported) Vit A/Vit C/Vit E/Zinc/Copper (Preservision Areds Tablet) 1 Tab Tab, 1 TAB PO BID, (Reported) Scheduled PRN Acetaminophen (Tylenol) 325 Mg Capsule, 650 MG PO Q6HP PRN for PAIN OR FEVER Carboxymethylcellulose Sodium (Refresh Plus) 1 Each Droperette, 1 DROP OU 5XD PRN for DRY EYES, (Reported) Allergies Coded Allergies: gabapentin (Verified Allergy, Intermediate, rash, 10/20/20) Deedee Bernstein MD Oct 29, 2020 16:28
== END 2020-10-29 15:40 | disposition home health service (06) | DRG 603 ==
LOC: M ED 14:47 → M ED INP 21:40 → ENRESERV 22:14 → M MS5PR 22:51
PROVIDERS: ADMIT Student in an Organized Health Care Education/Training Program; ATTEND Internal Medicine
DX: L03.116 Cellulitis of left lower limb (principal); N17.9 Acute kidney failure, unspecified; I13.0 Hypertensive heart and chronic kidney disease with heart failure and stage 1 through stage 4 chronic kidney disease, or unspecified chronic kidney disease; I48.20 Chronic atrial fibrillation, unspecified; N18.32 Chronic kidney disease, stage 3b; J84.112 Idiopathic pulmonary fibrosis; D69.6 Thrombocytopenia, unspecified; E11.621 Type 2 diabetes mellitus with foot ulcer; M70.42 Prepatellar bursitis, left knee; I25.10 Atherosclerotic heart disease of native coronary artery without angina pectoris; Z86.73 Personal history of transient ischemic attack (TIA), and cerebral infarction without residual deficits; N40.0 Benign prostatic hyperplasia without lower urinary tract symptoms; Z79.01 Long term (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 of anticoagulants; L97.529 Non-pressure chronic ulcer of other part of left foot with unspecified severity; K21.9 Gastro-esophageal reflux disease without esophagitis; E03.9 Hypothyroidism, unspecified